=== PATIENT | female | born 1985 | race Caucasian/White ===

== ENCOUNTER 2020-07-22 17:48 | Outpatient (REF) | payer MEDICARE, MEDICAID, SELFPAY ==
--- NOTE | 2020-07-22 18:15 | MR_ITS ---
MRI OF THE BRAIN WITHOUT IV CONTRAST INDICATION: Relapsing remitting multiple sclerosis. COMPARISON: MRI brain April 28, 2016. TECHNIQUE: Multiplanar multisequence MR imaging of the brain was obtained without IV contrast. FINDINGS: There are multiple new lesions within the supratentorial and infratentorial brain when compared to the most recently available April 28, 2016 brain MRI. There is a new lesion in the left middle cerebellar peduncle base and there are multiple new lesions within the supratentorial periventricular and subcortical white matter. Overall lesional burden is extensive. Multiple chronic low T1 signal intensity lesions are noted. No postcontrast imaging was performed for this study to assess for active demyelination. There is no hydrocephalus, extra-axial surface collection, or herniation. The major flow voids at the skull base are preserved. There is no acute infarct on diffusion-weighted imaging. No intracranial hemorrhage on the gradient series. The craniocervical junction is normal. Osseous marrow signal intensity is homogenous. The visualized soft tissues are unremarkable. Partially imaged lesions within the cervical spinal cord are similar to the prior study. MR/MR head/brain wo con IMPRESSION: - There are multiple new lesions within the supratentorial and infratentorial brain when compared to the most recently available April 28, 2016 brain MRI. No postcontrast imaging was performed for this study to assess for active demyelination. Lesional burden is extensive. - Partially imaged lesions within the cervical spinal cord are similar to the prior study.
== END 2020-07-22 17:49 | disposition home or self-care (01) ==
LOC: HO.MRI 17:48
PROVIDERS: Visit Provider Psychiatry & Neurology Neurology
DX: G35 Multiple sclerosis (principal)
CPT/HCPCS: 70551

== ENCOUNTER 2020-11-26 13:44 | Outpatient (REF) | payer MEDICARE, MEDICAID, SELFPAY ==
[2020-11-26 14:40] LABS: Alanine Aminotransferase 14 U/L (0-31); Albumin Level 4.4 g/dL (3.5-5.0); Alkaline Phosphatase 61 U/L (39-117); Aspartate Amino Transferase 12 U/L (5-31); Bilirubin Direct 0.2 mg/dL (0.0-0.5); Bilirubin Total 0.4 mg/dL (0.0-1.0); Total Protein 7.3 g/dL (6.5-8.0)
[2020-12-03 23:31] LABS: JCV Antibody POSITIVE; JCV Index Value 1.17
== END 2020-11-26 13:45 | disposition home or self-care (01) ==
LOC: HO.LAB 13:44
PROVIDERS: PCP Family Medicine; Visit Provider Psychiatry & Neurology Neurology
DX: G35 Multiple sclerosis (principal)
CPT/HCPCS: 36415; 80076; 86711

== ENCOUNTER 2021-04-23 09:53 | Outpatient (REF) | payer MEDICARE, MEDICAID, SELFPAY ==
[2021-04-23 11:07] LABS: Alanine Aminotransferase 18 U/L (0-31); Albumin Level 4.2 g/dL (3.5-5.0); Alkaline Phosphatase 61 U/L (39-117); Aspartate Amino Transferase 14 U/L (5-31); Bilirubin Direct < 0.2 mg/dL (0.0-0.5); Bilirubin Total 0.4 mg/dL (0.0-1.0); Total Protein 6.8 g/dL (6.5-8.0)
== END 2021-04-23 09:54 | disposition home or self-care (01) ==
LOC: HO.LAB 09:53
PROVIDERS: PCP Family Medicine; Visit Provider Psychiatry & Neurology Neurology
DX: G35 Multiple sclerosis (principal)
CPT/HCPCS: 36415; 80076

== ENCOUNTER 2021-06-15 13:41 | Outpatient (REF) | payer MEDICARE, MEDICAID, SELFPAY | END 2021-06-15 13:42 | disposition home or self-care (01) | LOC: HO.LAB 13:41 | PROVIDERS: Visit Provider Internal Medicine | DX: Z20.822 Contact with and (suspected) exposure to COVID-19 (principal) | CPT/HCPCS: C9803; U0003; U0005 ==

== ENCOUNTER 2022-05-10 14:13 | Outpatient (REF) | payer MEDICARE, MEDICAID, SELFPAY ==
[2022-05-10 15:55] LABS: Alanine Aminotransferase 13 U/L (0-31); Albumin Level 4.6 g/dL (3.5-5.0); Alkaline Phosphatase 71 U/L (39-117); Aspartate Amino Transferase 13 U/L (5-31); Bilirubin Direct 0.2 mg/dL (0.0-0.5); Bilirubin Total 0.3 mg/dL (0.0-1.0); Total Protein 7.5 g/dL (6.5-8.0)
== END 2022-05-10 14:14 | disposition home or self-care (01) ==
LOC: HO.LAB 14:13
PROVIDERS: PCP Family Medicine; Visit Provider Psychiatry & Neurology Neurology
DX: G35 Multiple sclerosis (principal)
CPT/HCPCS: 36415; 80076

== ENCOUNTER 2022-12-14 14:01 | Outpatient (REF) | payer MEDICARE, MEDICAID, SELFPAY ==
[2022-12-14 15:39] LABS: Alanine Aminotransferase 11 U/L (0-31); Albumin Level 4.1 g/dL (3.5-5.0); Alkaline Phosphatase 59 U/L (39-117); Aspartate Amino Transferase 11 U/L (5-31); Bilirubin Direct 0.2 mg/dL (0.0-0.5); Bilirubin Total 0.6 mg/dL (0.0-1.0)
== END 2022-12-14 14:02 | disposition home or self-care (01) ==
LOC: HO.LAB 14:01
PROVIDERS: PCP Family Medicine; Visit Provider Psychiatry & Neurology Neurology
DX: G35 Multiple sclerosis (principal)
CPT/HCPCS: 36415; 80076

== ENCOUNTER 2023-08-30 13:57 | Outpatient (REF) | payer MEDICARE, MEDICAID, SELFPAY ==
[2023-08-30 15:51] LABS: Alanine Aminotransferase 11 U/L (0-31); Albumin Level 3.9 g/dL (3.5-5.0); Alkaline Phosphatase 58 U/L (39-117); Aspartate Amino Transferase 11 U/L (5-31); Bilirubin Direct 0.2 mg/dL (0.0-0.5); Bilirubin Total 0.3 mg/dL (0.0-1.0); Total Protein 6.8 g/dL (6.5-8.0)
== END 2023-08-30 13:58 | disposition home or self-care (01) ==
LOC: HO.LAB 13:57
PROVIDERS: PCP Family Medicine; Visit Provider Psychiatry & Neurology Neurology
DX: G35 Multiple sclerosis (principal)
CPT/HCPCS: 36415; 80076

== ENCOUNTER 2023-12-03 13:19 | Emergency (ER) | payer MEDICARE, MEDICAID, SELFPAY ==
--- NOTE | ~2023-12-03 | CT_ITS ---
EXAMINATION: CT HEAD WITHOUT CONTRAST CLINICAL INFORMATION: Seizure. COMPARISON: MRI performed 07/22/2020 TECHNIQUE: Contiguous axial imaging was performed from the skull base to vertex without intravenous administration of contrast. This CT examination was performed using dose optimization techniques as appropriate, variously including the following: *Automated exposure control *Adjustment of mA and/or kV according to patient size (this includes techniques or standardized protocols for targeted exams where dose is matched to indication/reason for exam; i.e. extremities or head) *Use of iterative reconstruction technique DLP: 582 mGy-cm FINDINGS: The lateral, third and fourth ventricles are normally outlined. The cortical sulci and basal cisterns are normally outlined as well. There is bilateral periventricular and central white matter diminished attenuation. There is no hemorrhage or midline shift. The extra-axial spaces are unremarkable. Calvarium/scalp: Intact. Maxillofacial sinuses and mastoids: Clear as visualized CT/CT head/brain wo IV con IMPRESSION: 1. No acute hemorrhage or midline shift. 2. Bilateral periventricular and central white matter diminished attenuation likely related to demyelination as seen on prior MRI.
[2023-12-03 14:17] VITALS: BP 177/75; PULSE 78; RESP 18; TEMP 37.1; O2SAT 98; BMI 21.1
--- NOTE | 2023-12-03 14:18 | ED.GENADULT ---
HPI - General Adult General Chief complaint: Dizziness Stated complaint: MS flare up? Time Seen by Provider: 12/03/23 22:38 Source: patient Mode of arrival: ambulatory Limitations: no limitations History of Present Illness HPI narrative: Patient's history of multiple sclerosis for last 20 years police stable on Tysabri injection which she taking for last 6 years 4 days ago while patient's driving noticed his vision tunnel unable to function since then had similar episode but mild intensity 2- 3 times in past feels very anxious symptoms lasted only for few minutes Related Data Previous Rx's ?Medication ?Instructions ?Recorded lorazepam 1 mg tablet (Ativan) 1 mg PO BEDTIME PRN agitation #7 12/04/23 tabs Allergies Allergy/AdvReac Type Severity Reaction Status Date / Time No Known Allergies Allergy Verified 12/03/23 14:21 Review of Systems Review of Systems: Yes all other systems are reviewed and are negative [facility] Social History Social History Smoked in Last 30 Days: Yes Use of substances other than those prescribed or required for medical reasons: No Advance Directives: No Advance Directives Information Provided: No Do you have a plan to hurt others: No Plan Patient : No Physical Exam ED Vital Signs: Vital Signs - 24 hr 12/04/23 02:08 Temperature 98.1 F Pulse Rate 67 Respiratory Rate 16 Blood Pressure 143/65 H Pulse Oximetry 97 Oxygen Delivery Method Room Air BMI result Body Mass Index 21.1 Appearance: Alert. Oriented X3. No acute distress. Eyes: PERRLA, No Nystagmus ENT: Pharynx normal. Oral Mucosa moist Neck: Normal inspection. Neck supple. CVS: Normal heart rate and rhythm. Pulses normal. Respiratory: No respiratory distress. Equal air entry bilateral, no wheezing/rales/rhonchi Abdomen: Soft and nontender. Bowel sounds are present, no mass palpable, no CVA tenderness Skin: Skin warm and dry. Normal skin color. Normal skin turgor. Extremities: No lower extremity edema. No calf tenderness Neuro: Oriented X 3. No motor deficit. No sensory deficit.No cerebellar signs , cranial nerves II-XII intact Course Course Course Narrative: RME- 38 year old female presents for evaluation of confusion and dizziness. She also endorses a headache. Neuros intact. She reports starting Zoloft 25mg 3 days ago for anxiety. Plan for labs, EKG. Medications Administered Discontinued Medications Generic Name Dose Route Start Last Admin Trade Name Cory PRN Reason Stop Dose Admin Lorazepam 1 mg 12/04/23 01:57 12/04/23 02:03 Lorazepam 1 Mg Tablet PO 12/04/23 01:58 1 mg ONCE ONE Administration Medical Decision Making Medical Decision Making [facility] Narrative: Patient's symptoms likely anxiety as symptoms lasted only for few minutes CT scan of the head is negative advised to follow with the evaluation including MRI Differential Diagnosis Differential Diagnoses: The differential diagnosis associated with the presentation includes MS flare/anxiety Lab Data 12/03/23 15:06 12/03/23 15:06 Labs: Lab Results 12/03/23 12/03/23 12/03/23 Range/Units 15:06 15:07 15:10 WBC 11.9 H (4.8-10.8) X10*3/uL RBC 4.04 L (4.20-5.50) X10*6/uL Hgb 12.2 (12.0-16.0) g/dl Hct 34.7 L (37.0-47.0) % MCV 85.9 (80.0-98.0) fL MCH 30.2 (27.0-33.0) pg MCHC 35.2 H (31.0-35.0) g/dl RDW 13.2 (11.0-16.0) % Plt Count 262 (160-400) X10*3/uL MPV 9.9 (9.4-12.3) fL Immature Gran % (Auto) 0.3 (0.0-0.4) % Neut % (Auto) 60.8 (45-73) % Lymph % (Auto) 30.7 (20-40) % [place] % (Auto) 6.0 (2-11) % Eos % (Auto) 1.9 (0-4) % Baso % (Auto) 0.3 (0-2) % Lymph # (Auto) 3.6 (1.2-4.9) X10*3/uL [place] # (Auto) 0.7 (0.1-1.2) X10*3/uL Eos # (Auto) 0.2 (0.0-0.4) X10*3/uL Baso # (Auto) 0.0 (0.0-0.2) X10*3/uL Abs Immat Gran (auto) 0.04 H (0.00-0.03) X10*3/uL Absolute Neuts (auto) 7.2 (2.0-8.3) x10*3/uL Absolute Nucleated RBC 0.000 (0.0-0.012) X10*3/uL Nucleated RBC % (auto) 0.0 (0.0-0.2) /100WBC Sodium 140 (135-145) mmol/L Potassium 3.9 (3.3-5.1) mmol/L Chloride 108 (96-108) mmol/L Carbon Dioxide 22 (22-29) mmol/L Anion Gap 14 (12-20) BUN 8 L (9-16) mg/dL Creatinine 0.66 (0.5-1.4) mg/dL Estim Creat Clear Calc 91.4 Estimated GFR > 60 Random Glucose 92 (60-115) mg/dL Calcium 9.6 (8.4-10.2) mg/dL Total Bilirubin 0.5 (0.0-1.0) mg/dL AST 16 (5-31) U/L ALT 15 (0-31) U/L Alkaline Phosphatase 52 (39-117) U/L Ammonia (13-55) umol/L Total Protein 7.7 (6.5-8.0) g/dL Albumin 4.7 (3.5-5.0) g/dL Lipase 17 (8-78) U/L Beta HCG, Quant < 2 mIU/mL Urine Color Yellow Urine Appearance Clear Urine pH 5.0 (5.0-9.0) Ur Specific [place] <= 1.005 (1.005-1.025) Urine Protein Negative (Neg-Trace) mg/dL Urine Glucose (UA) Negative (Negative) mg/dL Urine Ketones 15 (Negative) mg/dL Urine Blood Trace H (Negative) Urine Nitrite Negative (Negative) Ur Leukocyte Esterase Negative (Negative) Urine RBC 0-2 (0-2) /HPF Urine WBC 0-5 (0-5) /HPF Ur Squamous Epith Cells 0-2 (0-2) /HPF Urine Bacteria None Seen (None Seen) Hyaline Casts 0-2 (0-2) /LPF 05/26/24 Range/Units 20:11 WBC (4.8-10.8) X10*3/uL RBC (4.20-5.50) X10*6/uL Hgb (12.0-16.0) g/dl Hct (37.0-47.0) % MCV (80.0-98.0) fL MCH (27.0-33.0) pg MCHC (31.0-35.0) g/dl RDW (11.0-16.0) % Plt Count (160-400) X10*3/uL MPV (9.4-12.3) fL Immature Gran % (Auto) (0.0-0.4) % Neut % (Auto) (45-73) % Lymph % (Auto) (20-40) % [place] % (Auto) (2-11) % Eos % (Auto) (0-4) % Baso % (Auto) (0-2) % Lymph # (Auto) (1.2-4.9) X10*3/uL [place] # (Auto) (0.1-1.2) X10*3/uL Eos # (Auto) (0.0-0.4) X10*3/uL Baso # (Auto) (0.0-0.2) X10*3/uL Abs Immat Gran (auto) (0.00-0.03) X10*3/uL Absolute Neuts (auto) (2.0-8.3) x10*3/uL Absolute Nucleated RBC (0.0-0.012) X10*3/uL Nucleated RBC % (auto) (0.0-0.2) /100WBC Sodium (135-145) mmol/L Potassium (3.3-5.1) mmol/L Chloride (96-108) mmol/L Carbon Dioxide (22-29) mmol/L Anion Gap (12-20) BUN (9-16) mg/dL Creatinine (0.5-1.4) mg/dL Estim Creat Clear Calc Estimated GFR Random Glucose (60-115) mg/dL Calcium (8.4-10.2) mg/dL Total Bilirubin (0.0-1.0) mg/dL AST (5-31) U/L ALT (0-31) U/L Alkaline Phosphatase (39-117) U/L Ammonia 27 (13-55) umol/L Total Protein (6.5-8.0) g/dL Albumin (3.5-5.0) g/dL Lipase (8-78) U/L Beta HCG, Quant mIU/mL Urine Color Urine Appearance Urine pH (5.0-9.0) Ur Specific [place] (1.005-1.025) Urine Protein (Neg-Trace) mg/dL Urine Glucose (UA) (Negative) mg/dL Urine Ketones (Negative) mg/dL Urine Blood (Negative) Urine Nitrite (Negative) Ur Leukocyte Esterase (Negative) Urine RBC (0-2) /HPF Urine WBC (0-5) /HPF Ur Squamous Epith Cells (0-2) /HPF Urine Bacteria (None Seen) Hyaline Casts (0-2) /LPF Discharge Plan Discharge Clinical Impression: Anxiety, Seizure disorder Patient Disposition: Home, Self-Care Instructions: Epilepsy (ED), Anxiety (ED) Additional Instructions: It is not clear whether you had a anxiety attack or possible small seizure Take Ativan 1 mg tablet every 6 hours as needed See Dr. Joseph neurologist for further workup Prescriptions: New lorazepam [Ativan] 1 mg tablet 1 mg PO BEDTIME PRN (Reason: agitation) Qty: 7 0RF Interventions: ED Discharge Assessment Last Done: 12/04/23 02:08 Discharge Date/Time: 12/04/23 02:09 Print Language: Filipino
--- NOTE | 2023-12-03 14:19 | ECG_ITS ---
Test Reason : PAIN Blood Pressure : / mmHG Vent. Rate : 079 BPM Atrial Rate : 079 BPM P-R Int : 132 ms QRS Dur : 076 ms QT Int : 382 ms P-R-T Axes : 069 039 056 degrees QTc Int : 438 ms Normal sinus rhythm with sinus arrhythmia Possible Anterior infarct , age undetermined Abnormal ECG No previous ECGs available Referred By: Leo Amaya Electronically Signed By:David Yuen
[2023-12-03 15:18] LABS: MANUAL DIFF FLAG NO
[2023-12-03 15:20] LABS: Basophils Percent Auto 0.3 % (0-2); Eosinophils Absolute Auto 0.2 X10*3/uL (0.0-0.4); Eosinophils Percent Auto 1.9 % (0-4); Hematocrit 34.7 % (37.0-47.0); Hemoglobin 12.2 g/dl (12.0-16.0); Imm Gran Abs Auto 0.04 X10*3/uL (0.00-0.03); Imm Gran Pct Auto 0.3 % (0.0-0.4); Lymphocytes Absolute Auto 3.6 X10*3/uL (1.2-4.9); Lymphocytes Percent Auto 30.7 % (20-40); Mean Corpuscular HGB Conc 35.2 g/dl (31.0-35.0); Mean Corpuscular Hemoglobin 30.2 pg (27.0-33.0); Mean Corpuscular Volume 85.9 fL (80.0-98.0); Mean Platelet Volume 9.9 fL (9.4-12.3); Monocytes Absolute Auto 0.7 X10*3/uL (0.1-1.2); Neutrophils Absolute Auto 7.2 x10*3/uL (2.0-8.3); Neutrophils Percent Auto 60.8 % (45-73); Platelet Count 262 X10*3/uL (160-400); Red Blood Count 4.04 X10*6/uL (4.20-5.50); Red Cell Distribution Width 13.2 % (11.0-16.0); White Blood Count 11.9 X10*3/uL (4.8-10.8)
[2023-12-03 15:20] LABS: Appearance Urine Clear; Color Urine Yellow; Glucose Urine UA Negative (Negative); Leukocyte Esterase Urine Negative (Negative); Nitrite Urine Negative (Negative); Specific Gravity - Urine <= 1.005 (1.005-1.025); UMIC TRIGGER UACC YES; Urine Blood Trace (Negative); Urine Ketones 15 mg/dL (Negative); Urine Protein Negative (Neg-Trace)
[2023-12-03 15:25] LABS: Bacteria Urine None Seen (None Seen); Hyaline Casts Urine 0-2 /LPF (0-2); RBC Urine 0-2 /HPF (0-2); Squamous Epithelial Cell Urine 0-2 /HPF (0-2); WBC Urine 0-5 /HPF (0-5)
[2023-12-03 15:36] LABS: Alanine Aminotransferase 15 U/L (0-31); Albumin Level 4.7 g/dL (3.5-5.0); Alkaline Phosphatase 52 U/L (39-117); Anion Gap 14 (12-20); Aspartate Amino Transferase 16 U/L (5-31); Bilirubin Total 0.5 mg/dL (0.0-1.0); Blood Urea Nitrogen 8 mg/dL (9-16); Calcium 9.6 mg/dL (8.4-10.2); Carbon Dioxide 22 mmol/L (22-29); Chloride 108 mmol/L (96-108); Creatinine Clr Calc Pharmacy 91.4; Estimated Glomerular Filt Rate > 60; Glucose Random 92 mg/dL (60-115); Lipase 17 U/L (8-78); Potassium 3.9 mmol/L (3.3-5.1); Sodium 140 mmol/L (135-145); Total Protein 7.7 g/dL (6.5-8.0)
[2023-12-03 15:55] LABS: HCG Quantitative < 2 mIU/mL
--- NOTE | 2023-12-03 20:11 | PC.NURSE ---
pt no answer when called for room.
[2023-12-03 20:24] LABS: Ammonia 27 umol/L (13-55)
[2023-12-03 22:59] VITALS: BP 147/90; PULSE 60; RESP 16; O2SAT 100
[2023-12-04] MEDS: LORazepam 1 MG TABLET PO (02:03)
[2023-12-04 02:08] VITALS: BP 143/65; PULSE 67; RESP 16; TEMP 36.7; O2SAT 97
== END 2023-12-04 02:09 | disposition home or self-care (01) ==
PROVIDERS: Physician Assistant; Emergency Provider Internal Medicine; PCP Family Medicine
DX: F41.9 Anxiety disorder, unspecified (principal); G40.909 Epilepsy, unspecified, not intractable, without status epilepticus; G35 Multiple sclerosis
CPT/HCPCS: 36415; 70450; 80053; 81001; 82140; 83690; 84702; 85025; 93005; 99284

== ENCOUNTER → 2023-12-03 14:19 | Outpatient (BNV) | payer MEDICARE, MEDICAID, SELFPAY | PROVIDERS: Emergency Provider Internal Medicine; PCP Family Medicine; Visit Provider Internal Medicine Cardiovascular Disease | DX: I49.9 Cardiac arrhythmia, unspecified (principal) | CPT/HCPCS: 93010 ==

== ENCOUNTER 2024-04-03 16:07 | Outpatient (REF) | payer MEDICARE, MEDICAID, SELFPAY ==
[2024-04-03 16:24] LABS: MANUAL DIFF FLAG NO
[2024-04-03 17:08] LABS: Basophils Percent Auto 0.4 % (0-2); Eosinophils Absolute Auto 0.3 X10*3/uL (0.0-0.4); Eosinophils Percent Auto 2.9 % (0-4); Hematocrit 37.9 % (37.0-47.0); Hemoglobin 12.8 g/dl (12.0-16.0); Imm Gran Abs Auto 0.05 X10*3/uL (0.00-0.03); Imm Gran Pct Auto 0.5 % (0.0-0.4); Lymphocytes Absolute Auto 4.3 X10*3/uL (1.2-4.9); Mean Corpuscular HGB Conc 33.8 g/dl (31.0-35.0); Mean Corpuscular Hemoglobin 29.5 pg (27.0-33.0); Mean Corpuscular Volume 87.3 fL (80.0-98.0); Mean Platelet Volume 9.8 fL (9.4-12.3); Monocytes Absolute Auto 0.8 X10*3/uL (0.1-1.2); Monocytes Percent Auto 7.4 % (2-11); Neutrophils Absolute Auto 5.5 x10*3/uL (2.0-8.3); Neutrophils Percent Auto 49.8 % (45-73); Platelet Count 291 X10*3/uL (160-400); Red Blood Count 4.34 X10*6/uL (4.20-5.50); Red Cell Distribution Width 13.8 % (11.0-16.0)
[2024-04-06 22:24] LABS: JCV Antibody POSITIVE; JCV Index Value 1.67
== END 2024-04-03 16:08 | disposition home or self-care (01) ==
LOC: HO.LAB 16:07
PROVIDERS: PCP Family Medicine; Referring Provider Family Medicine; Visit Provider Psychiatry & Neurology Neurology
DX: G35 Multiple sclerosis (principal)
CPT/HCPCS: 36415; 85025; 86711

== ENCOUNTER 2024-07-17 13:08 | Outpatient (REF) | payer MEDICARE, MEDICAID, SELFPAY ==
[2024-07-17 14:08] LABS: Alanine Aminotransferase 15 U/L (0-31); Albumin Level 4.2 g/dL (3.5-5.0); Alkaline Phosphatase 52 U/L (39-117); Aspartate Amino Transferase 15 U/L (5-31); Bilirubin Direct < 0.2 mg/dL (0.0-0.5); Bilirubin Total 0.2 mg/dL (0.0-1.0); Total Protein 7.4 g/dL (6.5-8.0)
== END 2024-07-17 13:09 | disposition home or self-care (01) ==
LOC: HO.LAB 13:08
PROVIDERS: PCP Family Medicine; Visit Provider Psychiatry & Neurology Neurology
DX: G35 Multiple sclerosis (principal)
CPT/HCPCS: 36415; 80076

== ENCOUNTER 2024-10-15 10:54 | Outpatient (AMB) | payer MEDICARE, MEDICAID, SELFPAY ==
[2024-10-15 11:27] VITALS: BP 120/76; BMI 20.7
--- NOTE | 2024-10-15 11:27 | MHC.OFFVIS ---
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 No complaints. Last Pap/HPV was in 08/29 showed high-grade JUANA/HPV positive, colpo biopsy ECC was negative, since then no co testing was done No previous screening Mammogram [facility] Medical History Bipolar 1 disorder Multiple sclerosis Family History Father Lung cancer Social History Household Members: Spouse and Children Housing: House Alcohol intake: former Patient Tobacco Use Status: Current everyday Tobacco user Tobacco use type: Cigar Cigarettes Per Day: 5 Years Smoked: 13 Current occupational status: disabled Sexual orientation: Straight/Heterosexual Gender identity: Female Female Reproductive History Menstrual Date of last menstrual period: 09/27/24 Review of Systems Const All systems reviewed & are unremarkable except as noted in HPI and below Card Reports as per HPI Resp Reports as per HPI GI Reports as per HPI and Reports no additional complaints Reports as per HPI Physical Exam Vital Signs: Last Vital Signs BP 120/76 10/15/24 11:27 BMI result Body Mass Index 20.7 Const General: cooperative, healthy appearing and comfortable Chest Chest palpation & inspection: normal inspection of the chest and normal palpation of entire chest wall Breast/axilla inspection: normal inspection of the breasts and normal inspection of the axillae Breast/axilla palpation: normal palpation of the breasts, normal palpation of the axillae and no axillary lymphadenopathy Resp Effort & Inspection: normal respiratory effort Auscultation: clear to auscultation bilaterally Percussion: percussion normal Cardio Palpation: normal PMI Rate: regular rate Rhythm: regular rhythm Heart sounds: no murmurs and no rubs Peripheral pulses: Peripheral pulses 2+ throughout GI Inspection: Yes normal to inspection Palpation (GI): Soft to palpation, nontender, no guarding, not rigid and No hepatosplenomegaly present Percussion: Yes normal to percussion Auscultation: normal bowel sounds Rectal Exam - Female: deferred General: Yes bladder normal to palpation External Female Exam: No lesion Speculum Exam - Vagina: normal appearance of the vagina, normal palpation, normal vaginal discharge and not erythematous Speculum Exam - Cervix: normal appearance of the cervix, normal palpation and Other cervical findings present (Endocervical polyp, removed) Bimanual exam- vagina & uterus: normal bimanual exam, normal palpation, uterine size normal, bladder normal to palpation, consistency normal and normal palpation Bimanual Exam- Adnexa, other: adnexae abnormal (Right adnexa was normal, left adnexal fullness) and no tenderness Skin Other: Left axillary/chest wall sub cuticular mass Office Procedures PRESS PULLER Biopsy Before the procedure was started, discussed with the patient the procedure technique, alternatives & all the risks associated with the procedure including but not limited to: bleeding , infection, uterine perforation, injury to bladder, vessels, bowels, possible need for transfusion with all its risks, and others. All questions were answered, the patient verbalized understanding and signed the consent. Urine test done in the office was negative Using a long Lupe Clamp the endocervical polyp was grasped and twisted around till it came off, hemostasis was secured using pressure. The patient tolerated the procedure well. Instructions were given to the patient to call if bleeding, temp>100.4 occur. The patient verbalized understanding and agreed with the plan. This note was generated with a voice recognition program. Some errors may have been overlooked during the review of this note. Sometimes these errors may affect the content or meaning of a given sentence. 26421-Jnswgo of Cervix Procedure code (CPT) selection complete Assessment & Plan Assessment & Plan (1) Well woman exam: Comment: High-grade JUANA/HPV positive in 2019 Code(s): Z01.419 - Encounter for gynecological examination (general) (routine) without abnormal findings Category: Medical Plan: Cotesting done. Mammogram ordered for 06/03 after the patient there was 40. Counseled the patient about the recommended dietary allowance of 1000 mg of Calcium & 600 IU of vitamin D. The patient was instructed to perform monthly self-breast exams and to schedule an annual exam in a year; All questions answered and the patient verbalized understanding. Instructed the patient to schedule annual exam in a year (2) Chest wall mass: Code(s): R22.2 - Localized swelling, mass and lump, trunk Category: Medical Plan: Discussed with the patient the finding on physical exam, will refer to general surgery for further management (3) Adnexal fullness: Code(s): N94.9 - Unspecified condition associated with female genital organs and menstrual cycle Category: Medical Plan: Discussed with the patient the finding on pelvic exam left adnexal fullness, pelvic ultrasound ordered. Instructions given to patient to schedule a 2 week ultrasound follow-up appointment. (4) Endocervical polyp: Code(s): N84.1 - Polyp of cervix uteri Category: Medical Plan: Discussed with the patient the finding on pelvic exam endocervical polyp, polypectomy done, see procedure note Orders: Orders MM tomosynthesis screening BI 7 Months Z12.31 - Encounter for screening mammogram for malignant neoplasm of breast US pelvic and transvaginal Today N94.9 - Unspecified condition associated with female genital organs and menstrual cycle AMB PRESS PULLER Biopsy Today N84.1 - Polyp of cervix uteri Referrals General Surgery Referral R22.2 - Localized swelling, mass and lump, trunk Medications: Discontinued lorazepam (Ativan) Discontinued Reason: Patient no longer taking 1 mg PO BEDTIME PRN 7 tabs 0RF agitation Coding Level of Care Code Est Pt Level 4 (29913) Procedure Only Diagnoses Well woman exam Z01.419 Chest wall mass R22.2 Adnexal fullness N94.9 Endocervical polyp N84.1 CPT Codes PRESS PULLER Biopsy - CPT: 52191-Daskhd of Cervix ([id number])
--- OUTSIDE RECORDS SUMMARY | 2024-10-15 13:15 | XMS_ITS ---
Author Organization Edmundo Esteban III, MD Address [address] [place] [address] Care Team Providers Care Coyote Hunter Name Role Phone Jorge Swanson MD Primary Care Provider Unavailab Edmundo Marks Unavailable [phone] Sylwia Joseph MD Unavailable Unavailable Allergies Allergen (clinical drug ingredient) Drug/Non Drug Allergy documented on EMR Reaction Allergy Type Onset Date Status No Known Drug Allergy Unknown Drug Allergy Active REASON FOR VISIT Tysabri Infusion Medications Medication SIG (Take, Route, Fr equency, Duration) Notes Start Date End Date Status Tysabri 300 MG/15ML as directed Intravenous Active Vitamin D 1000 UNIT 1 tablet Orally Once a day Active Social History Tobacco Use: Social History [...] te smoker Vital Signs Blood pressure systolic 108 mm Hg 09/12/19 25 Blood pressure diastolic 68 mm Hg 025 Heart Rate 80 /min 09/11/2024 Height 60 in 09/11/2024 Weight 115 lbs 09/11/2024 BMI 22.46 kg/m2 09/11/2024 Encounters Encounter Location Date Provider Diagnosis Edmundo Esteban III, MD [address] [place] [address] [place] [address] 09/11/2024 Edmundo Esteban MS (multiple sclerosis) G35 ; Bipolar 1 disorder F31.9 ; History of depression Z86.59 and Former smoker Z87.891 Assessments Encounter Date Diagnosis (ICD Code) Assessment Notes Treatment Notes Treatment Clinical Notes 09/11/2024 MS (multiple sclerosis) (ICD-10 - G35) She was treated today with 300 mg Tysabri monoclonal antibody therapy without incident. She will return in one month. 09/11/2024 Bipolar 1 disorder (ICD-10 - F31.9) This disorder is in long-term remission. 09/11/2024 History of depression (ICD-10 - Z86.59) She says her depression is well-controlled and that she is compliant with all of her medications. 09/11/2024 Former smoker (ICD-10 - Z87.891) She is highly motivated not to smoke. She has a plan to prevent relapse in times of stress and illness. Plan Of Treatment Medication Medication Name Sig Start Date Stop Date Notes Tysabri 300 MG/15ML as directed Intravenous Vitamin D 1000 UNIT 1 tablet Orally Once a day Next Appt Details Follow Up: 4 Weeks, Reason: Tysabri no tests Provider Name:Edmundo Esteban, 11/06/2024 01:00:00 PM, [address] [place] [address] [place], [address], Provider Name:Edmundo Esteban, 12/04/2024 01:00:00 PM, [address] [place] [address] [place], [address], Provider Name:Edmundo Esteban, 01/01/2025 01:00:00 PM, [address] [place] [address] [place], [address], Procedure Notes * Category Sub-Category Detail Notes Chemotherapy Start and End Time: start, 1:00 pm, end, 2:00 pm Site: right hand Consent: verbal consent was o btained prior to procedure Medications given: Tysabri 300 mg Monitored by: HAILY Copeland port flush none route IV Progress Notes * Kanwal NGDOB:[birth year] (39 yo F)Acc No.[id number]:09/11/2024 Patient:Kanwal PEREZ Provider:?Edmundo Esteban MD :1985???Age:39 Y???Sex:Female D ate:09/11/2024 Address:[address] [place], [place] [id number] Pcp:Jorge Swanson MD Subjective: * Chief Complaints: * ???Tysabri Infusion * HPI: ???COVID-19 Screening:? He returns to the office once a month for Tysabri monoclonal antibody therapy infusions for chronic relapsing multiple sclerosis.? She has had no neurological progression neurodeficit since her last visit.? Feels healthy and well today.? She was treated today without incident. ?Questions?Have you had any new onset fever, chills, cough, congestion, sore throat, shortness of breath, muscle aches??No * ROS:?General/Constitutional:?pain?only normal aches and pains.?Chills?denies.?Fatigue?admits.?Fever?denies.?ENT:?Decreased hearing?denies.?Respiratory:?Cough?denies.?Cardiovascular:?Chest pain with exertion?denies.?Dyspnea on exertion?denies.?Shortness of breath?denies.?Gastrointestinal:?Constipation?occasional.?Decreased appetite?denies.?Diarrhea?denies.?Heartburn?occasional.?Nausea?denies.?Rectal bleeding?denies.?Vomiting?denies.?Hematology:?bruising?denies.?petechiae?denies.?Swollen glands?none have been noted.?Genitourinary:?Frequent urination?a small amount.?Musculoskeletal:?Muscle aches?denies.?Painful joints?denies.?Sciatica?denies.?Weakness?denies.?Skin:?Itching?denies.?Rash?denies.?Skin lesion(s)?denies.?Neurologic:?Difficulty speaking?denies.?Dizziness?denies.?Headache?denies.?Low back pain?denies.?Psychiatric:?Depressed mood?denies.? * Medical History:? * Surgical History:?V4C7Pg8 20 * Hospitalization/Major Diagno stic Procedure:?Child 02/2020 * Family History:?Father: dece ased 55 yrs, lung cancer, diagnosed with Cancer.?Mother: alive 56 yrs, alive and well.?1 brother(s) - healthy. 2 daughter(s) - healthy. .? Her brother has had ureterolithiasis. Her daughter, Marjorie, is 7 ands well. A maternal grandmother may have had breast cancer. She is not aware of any family history of mental illness or substance use disorder or addiction. * Social History:?Tobacco Use:?Tobacco Use/Smoking?Patient is a?former smoker ?How long has it been since you last smoked??3-6 months ?Additional Findings: Tobacco User?Light cigarette smoker ((1-9 cigs/day) ?Additional Findings: Tobacco Non-User?Ex-cigarette smoker ???She was born in [place], [place]. 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 * Medications:?TakingVitamin D 1000 UNIT Tablet 1 tablet Orally Once a day Tysabri 300 MG/15ML Concentrate as directed Intravenous Medication List reviewed and reconciled with the patientTaking Vitamin D 1000 UNIT Tablet 1 tablet Orally Once a day Taking Tysabri 300 MG/15ML Concentrate as directed Intravenous Medication List reviewed and reconciled with the patient * Allergies:?No Known Drug All ergyno[Allergies Verified] Objective: * Vitals:?Ht: 60, Wt: 115, BMI :22.46, BP: 108/68, HR: 80, Wt-k.16. * Examination: ???General Examination: ?GENERAL APPEARANCE:?pleasant, well nourished, well developed, in no acute distress, calm and relaxed, woman.?HEAD:?atraumatic, normocephalic.?EYES:?eomi, perrla, anicteric, conjugate.?EARS:?normal.?NOSE:?septum intact.?ORAL CAVITY:?normal, unremarkable.?NECK/THYROID:?no jugular venous distention, no carotid bruit, thyroid normal.?LYMPH NODES:?no enlarged lymph nodes,spleen normal.?SKIN:?no suspicious lesions, anicteric.?HEART:?no clicks, gallops, murmurs, or rubs, regular rhythm, S1, S2 normal, no s3, or vascular bruits.?LUNGS:?clear to auscultation .?BREASTS:?Not examined.?ABDOMEN:?bowel sounds normal, no ascites, no organomegaly, no mass.?RECTAL EXAM:?not examined.?MUSCULOSKELETAL:?extremities unremarkable, no clubbing, cyanosis or edema.?PERIPHERAL PULSES:?normal.?NEUROLOGIC:?alert and oriented, cranial nerves 2-12 grossly intact, deep tendon reflexes 2+ symmetrical, motor strength normal upper and lower extremities, sensory exam intact.?PSYCH:?alert, oriented.? Assessment: * Assessment: 1.?MS (multiple sclerosis) - G35 (Primary)???Notes :She was treated today with 300 mg Tysabri monoclonal antibody therapy without incident. She will return in one month.???2.?Bipolar 1 disorder - F31.9???Notes :This disorder is in long-term remission.???3.?History of depression - Z86.59???Notes :She says her depression is well-controlled and that she is compliant with all of her medications.???4.?Former smoker - Z87.891???Notes :She is highly motivated not to smoke. She has a plan to prevent relapse in times of stress and illness.??? Plan: * Treatment: * Procedures:?Chemotherapy:?Start and End Time:?start, 1:00 pm, end, 2:00 pm.?Site:?right hand.?Consent:?verbal consent was obtained prior to procedure.?Medications given:?Tysabri 300 mg.?Monitored by:?Melianet P, ASMA.?port flush?none.?route?IV.? * Procedure Codes:?76767 CHEMO , IV INFUSION, 1 [id number] NATALIZUMAB INJECTION * Preventive Medicine:? ??Counseling:?Smoking/Tobacco Use?Patient counseled on the dangers of tobacco use and urged to quit.?09/11/2024 * Follow Up:?4 Weeks (Reason: Tysabri no tests) * Images: * Sign off status: Completed true * Provider:?Edmundo Esteban MD Date:?11/2024 Generated for Sui ng/Fakacig/eTransmitting on:?10/15/2024 01:15 PM EDT History and Physical Notes * HPI [...]
--- OUTSIDE RECORDS SUMMARY | 2024-10-15 13:15 | XMS_ITS ---
Author Organization Edmundo Esteban III, MD Address [address] [place] [address] Care Team Providers Care Car Mover Name Role Phone Jorge Swanson MD Primary Care Provider Unavailab Edmundo Marks Unavailable [phone] Sylwia Joseph MD Unavailable Unavailable Allergies Allergen [...] Date Provider Diagnosis Edmundo Esteban III, MD [address] [place] [address] [place] [address] 10/09/2024 Edmundo Esteban MS (multiple sclerosis) G35 [...] 4 Weeks, Reason: Tysabri Infusion Provider Name:Edmundo Esteban, 11/06/2024 01:00:00 PM, [address] [place] [address] [place], [address], Provider Name:Edmundo Esteban, 12/04/2024 01:00:00 PM, [address] [place] [address] [place], [address], Provider Name:Edmundo Esteban, 01/01/2025 01:00:00 PM, [address] [place] [address] [place], [address], Procedure Notes * Category Sub-Category Detail Notes Chemotherapy Start and End Time: start, 1:00 pm, end, 2:00 pm Site: left hand Consent: verbal consent was o btained prior to procedure Medications given: Tysabri 300 mg Monitored by: Melianet P, ASMA port flush none route IV Progress Notes * Kanwal NGDOB:[birth year] (39 yo F)Acc No.[id number]:10/09/2024 Patient:?Kanwal NG Provider:?Edmundo Esteban MD :1985???Age:39 Y???Sex:Female D ate:10/09/2024 Address:[address] [place], [place] [id number] Pcp:Jorge Swanson MD Subjective: * Chief Complaints: * ???Tysabri Infusion * HPI: ???COVID-19 Screening:? She returns for another scheduled dose of Tysabri monoclonal antibody therapy for chronic relapsing multiple sclerosis.? Since her last visit she has been healthy and well.? She was treated today without incident. ?Questions?Have you had any new onset fever, chills, cough, congestion, sore throat, shortness of breath, muscle aches??No * ROS:?General/Constitutional:?pain?only normal aches and pains.?Chills?denies.?Fatigue?admits.?Fever?denies.?ENT:?Decreased hearing?denies.?Respiratory:?Cough?denies.?Cardiovascular:?Chest pain with exertion?denies.?Dyspnea on exertion?denies.?Shortness of breath?denies.?Gastrointestinal:?Constipation?denies.?Decreased appetite?denies.?Diarrhea?denies.?Heartburn?denies.?Nausea?denies.?Rectal bleeding?denies.?Vomiting?denies.?Hematology:?bruising?denies.?petechiae?denies.?Swollen glands?none have been noted.?Genitourinary:?Frequent urination?at night.?Musculoskeletal:?Muscle aches?denies.?Painful joints?denies.?Sciatica?denies.?Weakness?denies.?Skin:?Itching?denies.?Rash?denies.?Skin lesion(s)?denies.?Neurologic:?Difficulty speaking?denies.?Dizziness?denies.?Headache?denies.?Low back pain?denies.?Psychiatric:?Depressed mood?denies.? * Medical History:? * Surgical History:?S1D1Kp9 29 03 * Hospitalization/Major Diagno stic Procedure:?Child 02/2020 * [...] Tobacco Non-User?Ex-cigarette smoker ???She was born in [place], [place]. 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 * Medications:?TakingVitamin [...] ergyno[Allergies Verified] Objective: * Vitals:?Ht: 60, Wt: 114, BMI :22.26, BP: 109/81, HR: 83, Wt-k.71. * Examination: ???General Examination: ?GENERAL APPEARANCE:?pleasant, well [...] without incident. She will return in one month.???2.?History of depression - Z86.59???Notes :She says her depression is well-controlled and that she is compliant with all of her medications.???3.?Former smoker - Z87.891???Notes :She is highly motivated not to smoke. She has a plan to prevent relapse in times of stress and illness.??? Plan: * Treatment: * Procedures:?Chemotherapy:?Start and End Time:?start, 1:00 pm, end, 2:00 pm.?Site:?left hand.?Consent:?verbal consent was obtained prior to procedure.?Medications given:?Tysabri 300 mg.?Monitored by:?Lennox P, ASMA.?port flush?none.?route?IV.? * Procedure Codes:?66942 CHEMO , IV INFUSION, 1 [id number] NATALIZUMAB INJECTION * Preventive Medicine:? ??Counseling:?Smoking/Tobacco Use?Patient counseled on the dangers of tobacco use and urged to quit.?10/09/2024 * Follow Up:?4 Weeks (Reason: Tysabri Infusion) * Images: * Sign off status: Completed true * Provider:?Edmundo Esteban MD Date:?08/2024 Generated for Sanam leary/Maxx/eTransmitting on:?10/15/2024 01:15 PM EDT History and Physical [...]
--- OUTSIDE RECORDS SUMMARY | 2024-10-15 13:15 | XMS_ITS ---
Author Organization Edmundo Esteban III, MD Address [address] [place] [address] Care Team Providers Care Celery Wrapper Name Role Phone Jorge Swansno MD Primary Care Provider Unavailab Edmundo Marks Unavailable [phone] Sylwia Joseph MD Unavailable Unavailable Allergies Allergen [...] te smoker Vital Signs Blood pressure systolic 115 mm Hg 08/13/19 25 Blood pressure diastolic 81 mm Hg 025 Heart Rate 93 /min 08/13/2024 Height 60 in 08/13/2024 Weight 113 lbs 08/13/2024 BMI 22.07 kg/m2 08/13/2024 Encounters Encounter Location Date Provider Diagnosis Edmundo Esteban III, MD [address] [place] [address] [place] [address] 08/13/2024 Edmundo Esteban MS (multiple sclerosis) G35 ; Bipolar 1 disorder F31.9 ; History of depression Z86.59 and Former smoker Z87.891 Assessments Encounter Date Diagnosis (ICD Code) Assessment Notes Treatment Notes Treatment Clinical Notes 08/13/2024 MS (multiple sclerosis) (ICD-10 - G35) She was treated today with 300 mg Tysabri monoclonal antibody therapy without incident. She will return in one month. 08/13/2024 Bipolar 1 disorder (ICD-10 - F31.9) This disorder is in long-term remission. 08/13/2024 History of depression (ICD-10 - Z86.59) She says her depression is well-controlled and that she is compliant with all of her medications. 08/13/2024 Former smoker (ICD-10 - Z87.891) She is highly motivated not to smoke. She has a plan to prevent relapse in times of stress and illness. Plan Of Treatment Medication Medication Name Sig Start Date Stop Date Notes Vitamin D 1000 UNIT 1 tablet Orally Once a day Tysabri 300 MG/15ML as directed Intravenous Next Appt Details Follow Up: 4 Weeks, Reason: Tysabri infusion no tests Provider Name:Edmundo Esteban, 11/06/2024 01:00:00 PM, [address] [place] [address] [place], [address], Provider Name:Edmundo Esteban, 12/04/2024 01:00:00 PM, [address] [place] [address] [place], [address], Provider Name:Edmundo Esteban, 01/01/2025 01:00:00 PM, [address] [place] [address] [place], [address], Procedure Notes * Category Sub-Category Detail Notes Chemotherapy Start and End Time: start, 1:00 pm, end, 2:00 pm Site: left hand Consent: verbal consent was o btained prior to procedure Medications given: Tysabri 300 mg Monitored by: HAILY Copeland route IV Progress Notes * Kanwal NGDOB:[birth year] (39 yo F)Acc No.[id number]:08/13/2024 Patient:Kanwal PEREZ Provider:?Edmundo Esteban MD :1985???Age:39 Y???Sex:Female D ate:08/13/2024 Address:[address] [place], [place] [id number] Pcp:Jorge Swanson MD Subjective: * Chief Complaints: * ???Tysabri Infusion * HPI: ???COVID-19 Screening:? She comes in today for another intravenous innfusion of Tysabri monoclonal antibody therapy for her chronic relapsing multiple sclerosis.? Since her last visit she has been healthy and well.? She has no new complaints today.? She was treated today without incident.? She tolerated it well. ?Questions?Have you had any new onset fever, chills, cough, congestion, sore throat, shortness of breath, muscle aches??No * ROS:?General/Constitutional:?pain?only normal aches and pains.?Chills?denies.?Fatigue?admits.?Fever?denies.?ENT:?Decreased hearing?denies.?Respiratory:?Cough?denies.?Cardiovascular:?Chest pain with exertion?denies.?Dyspnea on exertion?denies.?Shortness of breath?denies.?Gastrointestinal:?Constipation?occasional.?Decreased appetite?denies.?Diarrhea?denies.?Heartburn?occasional.?Nausea?denies.?Rectal bleeding?denies.?Vomiting?denies.?Hematology:?bruising?denies.?petechiae?denies.?Swollen glands?none have been noted.?Genitourinary:?Frequent urination?denies.?Musculoskeletal:?Muscle aches?denies.?Painful joints?denies.?Sciatica?denies.?Weakness?denies.?Skin:?Itching?denies.?Rash?denies.?Skin lesion(s)?denies.?Neurologic:?Difficulty speaking?denies.?Dizziness?denies.?Headache?denies.?Low back pain?denies.?Psychiatric:?Depressed mood?denies.? * Medical History:? * Surgical History:?[id number] 20 09 * Hospitalization/Major Diagno stic Procedure:?Child 02/2020 * [...] Tobacco Non-User?Ex-cigarette smoker ???She was born in [place], [place]. 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 * [...] ergyno[Allergies Verified] Objective: * Vitals:?Ht: 60, Wt: 113, BMI :22.07, BP: 115/81, HR: 93, Wt-k.26. * Examination: ???General Examination: ?GENERAL APPEARANCE:?pleasant, well [...] obtained prior to procedure.?Medications given:?Tysabri 300 mg.?Monitored by:?Melemory P, ASMA.?route?IV.? * Procedure Codes:?42933 CHEMO , IV INFUSION, 1 [id number] NATALIZUMAB INJECTION * Preventive Medicine:? ??Counseling:?Smoking/Tobacco Use?Patient counseled on the dangers of tobacco use and urged to quit.?08/13/2024 * Follow Up:?4 Weeks (Reason: Tysabri infusion no tests) * Images: * Sign off status: Completed true * Provider:?Edmundo Esteban MD Date:?10/2024 Generated for Sanam leary/Maxx/eTphilippesmitting on:?10/15/2024 01:15 PM EDT History and Physical [...]
== END 2024-10-15 12:11 | disposition home or self-care (01) ==
LOC: HO.HWS 10:54
PROVIDERS: PCP Family Medicine; Visit Provider Obstetrics & Gynecology
DX: R22.2 Localized swelling, mass and lump, trunk (principal); N94.9 Unspecified condition associated with female genital organs and menstrual cycle; N84.1 Polyp of cervix uteri
CPT/HCPCS: 57500; 99214

== ENCOUNTER 2024-10-15 10:54 | Outpatient (REF) | payer MEDICARE, MEDICAID, SELFPAY ==
--- OUTSIDE RECORDS SUMMARY | 2024-10-15 14:36 | XMS_ITS | Patient Health Record ---
Author Organization Edmundo Esteban III, MD Address [address] [place] [address] Care Team Providers Care Donor Processor Name Role Phone Jorge Swanson MD Primary Care Provider Unavailab Edmundo Marks Unavailable [phone] Sylwia Joseph MD Unavailable Unavailable Allergies Allergen (clinical drug ingredient) Drug/Non Drug Allergy documented on EMR Reaction Allergy Type Onset Date Status No Known Drug Allergy Unknown Drug Allergy Active Reason For Referral No Information Medications Medication SIG (Take, Route, Fr equency, [...] Additional Findings: Tobacco Non-User Ex-cigaret te smoker Alcohol Screen Question Answer Notes Did you have a drink containing alcohol in the p ast year? No Points 0 Interpretation Negative Problems Problem Type SNOMED Code ICD Code Onset Dates Problem Status W/U Status Risk Notes Problem 0710894 Former smoker (Z87.891) Active confirmed She is highly motivated not to smoke. She has a plan to prevent relapse in times of stress and illness. Problem 69714609 MS (multiple sclerosis) (G35) Active confirmed She was treated today with 300 mg Tysabri monoclonal antibody therapy without incident. She will return in one month. Problem 234605415 History of depression (Z86.59) Active confirmed She says her depression is well-controll ed and that she is compliant with all of her medications. Problem 545115548 Bipolar 1 disorder (F31.9) Active confirmed This disorder is in long-term remission. Vital Signs Heart Rate 83 /min 10/09/2024 Temperature 99.1 degrees Fahrenheit 11/14/2023 Blood pressure diastolic 81 mm Hg 10/09/2024 Height 60 in 10/09/2024 Blood pressure systolic 109 mm Hg 10/09/2024 Weight 114 lbs 10/09/2024 BMI 22.26 kg/m2 10/09/2024 Encounters Encounter Location Date Provider Diagnosis Edmundo Esteban III, MD [address] [place] [address] [place] [address] 12/12/2023 Edmundo Esteban MS (multiple sclerosis) G35 ; Bipolar 1 disorder F31.9 and History of depression Z86.59 Edmundo Esteban III, MD [address] [place] [address] [place] [address] 01/09/2024 Edmundo Esteban MS (multiple sclerosis) G35 ; Bipolar 1 disorder F31.9 ; History of depression Z86.59 and Former smoker Z87.891 Edmundo Esteban III, MD [address] [place] [address] [place] [address] 10/17/2023 Edmundo Esteban MS (multiple sclerosis) G35 ; Bipolar 1 disorder F31.9 ; History of depression Z86.59 and Former smoker Z87.891 Edmundo Esteban III, MD [address] [place] [address] [place] [address] 11/14/2023 Edmundo Esteban MS (multiple sclerosis) G35 ; History of depression Z86.59 ; Bipolar 1 disorder F31.9 and Former smoker Z87.891 Edmundo Esteban III, MD [address] [place] [address] [place] [address] 02/14/2024 Edmundo Esteban MS (multiple sclerosis) G35 ; Bipolar 1 disorder F31.9 ; History of depression Z86.59 and Former smoker Z87.891 Edmundo Esteban III, MD [address] [place] [address] [place] [address] 03/13/2024 Edmundo Haasrne MS (multiple sclerosis) G35 ; Bipolar 1 disorder F31.9 ; Former smoker Z87.891 and History of depression Z86.59 Edmundo Esteban III, MD [address] [place] [address] [place] [address] 04/12/2024 Edmundo Haasrne MS (multiple sclerosis) G35 ; Bipolar 1 disorder F31.9 ; History of depression Z86.59 and Former smoker Z87.891 Edmundo Esteban III, MD [address] [place] [address] [place] [address] 05/10/2024 Edmundo Esteban MS (multiple sclerosis) G35 ; Former smoker Z87.891 ; Bipolar 1 disorder F31.9 and History of depression Z86.59 Edmundo Esteban III, MD [address] [place] [address] [place] [address] 06/11/2024 Edmundo Haasrne MS (multiple sclerosis) G35 ; Bipolar 1 disorder F31.9 ; History of depression Z86.59 and Former smoker Z87.891 Edmundo Esteban III, MD [address] [place] [address] [place] [address] 07/12/2024 Edmundo Haasrne MS (multiple sclerosis) G35 ; Bipolar 1 disorder F31.9 ; History of depression Z86.59 and Former smoker Z87.891 Edmundo Esteban III, MD [address] [place] [address] [place] [address] 08/13/2024 Edmundo Esteban MS (multiple sclerosis) G35 ; Bipolar 1 disorder F31.9 ; History of depression Z86.59 and Former smoker Z87.891 Edmundo Esteban III, MD [address] [place] [address] [place] [address] 10/09/2024 Edmundo Esteban MS (multiple sclerosis) G35 ; History of depression Z86.59 and Former smoker Z87.891 Edmundo Esteban III, MD [address] [place] [address] [place] [address] 09/11/2024 Edmundo Esteban MS (multiple sclerosis) G35 ; Bipolar 1 disorder F31.9 ; History of depression Z86.59 and Former smoker Z87.891 Edmundo Esteban III, MD [address] [place] [address] [place] [address] 12/06/2023 Edmundo Esteban Assessments Encounter Date Diagnosis (ICD Code) Assessment Notes Treatment Notes Treatment Clinical Notes 12/12/2023 MS (multiple sclerosis) (ICD-10 - G35) She was treated today with 300 mg Tysabri monoclonal antibody therapy without incident. She will return in one month. 12/12/2023 Bipolar 1 disorder (ICD-10 - F31.9) This disorder is in long-term remission. 01/09/2024 MS (multiple sclerosis) (ICD-10 - G35) She was treated today with 300 mg Tysabri monoclonal antibody therapy without incident. She will return in one month. 01/09/2024 Bipolar 1 disorder (ICD-10 - F31.9) This disorder is in long-term remission. 10/17/2023 MS (multiple sclerosis) (ICD-10 - G35) She was treated today with 300 mg Tysabri monoclonal antibody therapy without incident. She will return in one month. 10/17/2023 Bipolar 1 disorder (ICD-10 - F31.9) This disorder is in long-term remission. 11/14/2023 MS (multiple sclerosis) (ICD-10 - G35) She was treated today with 300 mg Tysabri monoclonal antibody therapy without incident. She will return in one month. 11/14/2023 History of depression (ICD-10 - Z86.59) She says her depression is well-controlled and that she is compliant with all of her medications. 02/14/2024 MS (multiple sclerosis) (ICD-10 - G35) She was treated today with 300 mg Tysabri monoclonal antibody therapy without incident. She will return in one month. 02/14/2024 Bipolar 1 disorder (ICD-10 - F31.9) This disorder is in long-term remission. 03/13/2024 MS (multiple sclerosis) (ICD-10 - G35) She was treated today with 300 mg Tysabri monoclonal antibody therapy without incident. She will return in one month. 03/13/2024 Bipolar 1 disorder (ICD-10 - F31.9) This disorder is in long-term remission. 04/12/2024 MS (multiple sclerosis) (ICD-10 - G35) She was treated today with 300 mg Tysabri monoclonal antibody therapy without incident. She will return in one month. 04/12/2024 Bipolar 1 disorder (ICD-10 - F31.9) This disorder is in long-term remission. 05/10/2024 Former smoker (ICD-10 - Z87.891) She is highly motivated not to smoke. She has a plan to prevent relapse in times of stress and illness. 05/10/2024 MS (multiple sclerosis) (ICD-10 - G35) She was treated today with 300 mg Tysabri monoclonal antibody therapy without incident. She will return in one month. 06/11/2024 MS (multiple sclerosis) (ICD-10 - G35) She was treated today with 300 mg Tysabri monoclonal antibody therapy without incident. She will return in one month. 06/11/2024 Bipolar 1 disorder (ICD-10 - F31.9) This disorder is in long-term remission. 07/12/2024 MS (multiple sclerosis) (ICD-10 - G35) She was treated today with 300 mg Tysabri monoclonal antibody therapy without incident. She will return in one month. 07/12/2024 Bipolar 1 disorder (ICD-10 - F31.9) This disorder is in long-term remission. 08/13/2024 MS (multiple sclerosis) (ICD-10 - G35) She was treated today with 300 mg Tysabri monoclonal antibody therapy without incident. She will return in one month. 08/13/2024 Bipolar 1 disorder (ICD-10 - F31.9) This disorder is in long-term remission. 10/09/2024 MS (multiple sclerosis) (ICD-10 - G35) She was treated today with 300 mg Tysabri monoclonal antibody therapy without incident. She will return in one month. 10/09/2024 History of depression (ICD-10 - Z86.59) She says her depression is well-controlled and that she is compliant with all of her medications. 09/11/2024 MS (multiple sclerosis) (ICD-10 - G35) She was treated today with 300 mg Tysabri monoclonal antibody therapy without incident. She will return in one month. 09/11/2024 Bipolar 1 disorder (ICD-10 - F31.9) This disorder is in long-term remission. 12/12/2023 History of depression (ICD-10 - Z86.59) She says her depression is well-controlled and that she is compliant with all of her medications. 01/09/2024 History of depression (ICD-10 - Z86.59) She says her depression is well-controlled and that she is compliant with all of her medications. 10/17/2023 History of depression (ICD-10 - Z86.59) She says her depression is well-controlled and that she is compliant with all of her medications. 11/14/2023 Bipolar 1 disorder (ICD-10 - F31.9) This disorder is in long-term remission. 02/14/2024 History of depression (ICD-10 - Z86.59) She says her depression is well-controlled and that she is compliant with all of her medications. 03/13/2024 Former smoker (ICD-10 - Z87.891) She is highly motivated not to smoke. She has a plan to prevent relapse in times of stress and illness. 04/12/2024 History of depression (ICD-10 - Z86.59) She says her depression is well-controlled and that she is compliant with all of her medications. 05/10/2024 Bipolar 1 disorder (ICD-10 - F31.9) This disorder is in long-term remission. 06/11/2024 History of depression (ICD-10 - Z86.59) She says her depression is well-controlled and that she is compliant with all of her medications. 07/12/2024 History of depression (ICD-10 - Z86.59) She says her depression is well-controlled and that she is compliant with all of her medications. 08/13/2024 History of depression (ICD-10 - Z86.59) She says her depression is well-controlled and that she is compliant with all of her medications. 10/09/2024 Former smoker (ICD-10 - Z87.891) She is highly motivated not to smoke. She has a plan to prevent relapse in times of stress and illness. 09/11/2024 History of depression (ICD-10 - Z86.59) She says her depression is well-controlled and that she is compliant with all of her medications. 01/09/2024 Former smoker (ICD-10 - Z87.891) She is highly motivated not to smoke. She has a plan to prevent relapse in times of stress and illness. 10/17/2023 Former smoker (ICD-10 - Z87.891) She is highly motivated not to smoke. She has a plan to prevent relapse in times of stress and illness. 11/14/2023 Former smoker (ICD-10 - Z87.891) She is highly motivated not to smoke. She has a plan to prevent relapse in times of stress and illness. 02/14/2024 Former smoker (ICD-10 - Z87.891) She is highly motivated not to smoke. She has a plan to prevent relapse in times of stress and illness. 03/13/2024 History of depression (ICD-10 - Z86.59) She says her depression is well-controlled and that she is compliant with all of her medications. 04/12/2024 Former smoker (ICD-10 - Z87.891) She is highly motivated not to smoke. She has a plan to prevent relapse in times of stress and illness. 05/10/2024 History of depression (ICD-10 - Z86.59) She says her depression is well-controlled and that she is compliant with all of her medications. 06/11/2024 Former smoker (ICD-10 - Z87.891) She is highly motivated not to smoke. She has a plan to prevent relapse in times of stress and illness. 07/12/2024 Former smoker (ICD-10 - Z87.891) She is highly motivated not to smoke. She has a plan to prevent relapse in times of stress and illness. 08/13/2024 Former smoker (ICD-10 - Z87.891) She is highly motivated not to smoke. She has a plan to prevent relapse in times of stress and illness. 09/11/2024 Former smoker (ICD-10 - Z87.891) She is highly motivated not to smoke. She has a plan to prevent relapse in times of stress and illness. Plan Of Treatment Next Appt Details Provider Name:Edmundo Carlito, 11/06/2024 01:00:00 PM, [address] [facility] [address], [place], [address], Provider Name:Edmundo Esteban, 12/04/2024 01:00:00 PM, [address] [facility] [address], [place], [address], Provider Name:Edmundo Esteban, 01/01/2025 01:00:00 PM, [address] [facility] [address], [place], [address], Insurance Providers Payer Name Payer Address Payer Phone Subscriber Number Group Number Insured Name Patient Relationship to Insured Coverage Start Date Coverage End Date MEDICARE NGS [address] [place] [address] [id number] Kanwal Sanches Self - patient is the insured [place] [address] [place] [id number] [phone] [id number] Kanwal Sanches Self - patient is the insured Medical (General) History Medical History History ICD Code multiple sclerosis bipolar disorder 2 para 2 cigarette smoker history of depression [id number] 07/2021 Surgical History Surgery Date(Month/Year) [id number] 2008 Hospitalization History Reason Date(Month/Year) Child 02/2020
[2024-10-21 14:37] LABS: HPV Genotype 16 Negative (Negative); HPV Genotype 18 Negative (Negative); HPV High Risk Positive (Negative)
== END 2024-10-15 10:55 | disposition home or self-care (01) ==
LOC: HO.LNP 10:54
PROVIDERS: PCP Family Medicine; Visit Provider Obstetrics & Gynecology
DX: Z01.419 Encounter for gynecological examination (general) (routine) without abnormal findings (principal); N84.1 Polyp of cervix uteri; N94.9 Unspecified condition associated with female genital organs and menstrual cycle; R22.2 Localized swelling, mass and lump, trunk
CPT/HCPCS: 57500; 87626; 88175; 88305; 99212

== ENCOUNTER 2024-10-29 09:57 | Outpatient (REF) | payer MEDICARE, MEDICAID, SELFPAY | END 2024-10-29 09:58 | disposition home or self-care (01) | LOC: HO.LNP 09:57 | PROVIDERS: PCP Family Medicine; Visit Provider Obstetrics & Gynecology | DX: R87.613 High grade squamous intraepithelial lesion on cytologic smear of cervix (HGSIL) (principal) | CPT/HCPCS: 57454; 81025; 88305 ==

== ENCOUNTER 2024-10-29 09:57 | Outpatient (AMB) | payer MEDICARE, MEDICAID, SELFPAY ==
--- NOTE | 2024-10-29 09:58 | A.OFFVIS_ITS ---
Intake Visit Reasons: Colposcopy Allergies No Known Allergies Allergy (Verified 10/15/24 11:31) HPI Comments Details: Presenting for abnormal Pap smear showing the following: Satisfactory for evaluation, with severely dysplastic squamous cells (SABINE 3; high grade squamous intraepithelial lesion). HPV High Risk: Positive HPV Genotyping 16: Negative HPV Genotyping 18: Negative Polypectomy pathology showed the following: Endocervical polyp, resection: High-grade squamous intraepithelial lesion (moderate dysplasia, SABINE 2) involving an endocervical polyp [facility] Medical History Bipolar 1 disorder Multiple sclerosis Family History Father Lung cancer Social History Household Members: Spouse and Children Housing: House Alcohol intake: former Patient Tobacco Use Status: Current everyday Tobacco user Tobacco use type: Cigar Cigarettes Per Day: 5 Years Smoked: 13 Current occupational status: disabled Sexual orientation: Straight/Heterosexual Gender identity: Female Female Reproductive History Menstrual Age of Menarche: 12 Date of last menstrual period: 10/22/24 control method: none Total pregnancies: 3 Full term: 2 Date of last pap smear: 10/15/24 History of abnormal pap smear: Yes Review of Systems Const All systems reviewed & are unremarkable except as noted in HPI and below Reports as per HPI and Reports no additional complaints GI Reports no additional complaints Reports no additional complaints Office Procedures Colposcopy Colposcopy: Pre-Procedure Counseling: Before beginning the procedure, I conducted comprehensive counseling with the patient. We thoroughly discussed the procedure itself, including its details, alternatives, and all associated risks. This included but not limited to the following complications such as bleeding, infection, and injury to the vagina, bladder, and vessels, as well as the potential need for transfusion with all its associated risks. Subsequently, the patient sign the consent. Pap smear result: HSIL/HPV positive, polypectomy pathology showed SABINE 3. Urine test in office = Negative Procedure: During the procedure, the following steps were performed: A speculum was inserted, and acetic acid was applied. Colposcopy was conducted, allowing visualization of the transformation zone. Acetowhite lesions were identified at the 4+6+8+9+11+12+1 o'clock position. Cervical biopsies were obtained from the 4+6+8+9+11+12+1 o'clock position, followed by an endocervical curettage (ECC). Vaginoscopy of the upper vagina revealed no evidence of aceto-white lesions. Hemostasis was achieved using Monsel solution, and the patient tolerated the procedure well. Post-Procedure Instructions: The patient was advised to promptly contact the office or the after hours answering service or go to the emergency room if experiencing a temperature exceeding 100.4?F, abdominal pain, nausea/vomiting, or bleeding. Additionally, the patient was instructed to abstain from vaginal intercourse and bathtub use. The patient confirmed understanding of these instructions. Discharge Instructions: The patient was instructed to schedule a follow-up appointment in 2 weeks for further evaluation and management. Please note that this note was generated using a voice recognition program, and errors may have occurred during fast food crew lead. [id number] of cervix including upper vagina with biopsy and ECC Procedure code (CPT) selection complete Assessment & Plan Assessment & Plan (1) HGSIL (high grade squamous intraepithelial lesion) on Pap smear of cervix: Comment: HPV positive Code(s): R87.613 - High grade squamous intraepithelial lesion on cytologic smear of cervix (HGSIL) Category: Medical Plan: Discussed with the patient the result of her abnormal pap, its significance, risk of progression, persistence, and regression. the false positive/negative rate of a Pap smear as a screening test in detecting cervical cancer and the indication for a diagnostic test -colposcopy, biopsy, endocervical curettage. The patient verbalized understanding and agreed with the plan, all questions answered. Colpo biopsy ECC done, see procedure note Orders: Orders AMB Colposcopy Today R87.613 - High grade squamous intraepithelial lesion on cytologic smear of cervix (HGSIL) Coding Level of Care Code Procedure Only Diagnoses HGSIL (high grade squamous intraepithelial lesion) on Pap smear of cervix R87.613 CPT Codes Colposcopy - CPT: 95420-Dyfgerekb of cervix including upper vagina with biopsy and ECC ([id number])
--- OUTSIDE RECORDS SUMMARY | 2024-10-29 11:14 | XMS_ITS ---
Author Organization Edmundo Esteban III, MD Address [address] [place] [address] Care Team Providers Care Macroeconomics Professor Name Role Phone Jorge Swanson MD Primary Care Provider Unavailab Edmundo Marks Unavailable [phone] Sylwia Joseph MD Unavailable Unavailable Allergies Allergen [...] Date Provider Diagnosis Edmundo Esteban III, MD [address] [place] [address] [place] [address] 08/13/2024 Edmundo Esteban MS (multiple sclerosis) G35 [...] tests Provider Name:Edmundo Esteban, 11/06/2024 01:00:00 PM, [address] [place] [address] [place], [address], Provider Name:Edmundo Esteban, 12/04/2024 01:00:00 PM, [address] [place] [address] [place], [address], Provider Name:Edmundo Esteban, 01/01/2025 01:00:00 PM, [address] [place] [address] [place], [address], Procedure Notes * Category Sub-Category Detail Notes Chemotherapy Start and End Time: start, 1:00 pm, end, 2:00 pm Site: left hand Consent: verbal consent was o btained prior to procedure Medications given: Tysabri 300 mg Monitored by: HAILY Copeland route IV Progress Notes * Kanwal NGDOB:[birth year] (39 yo F)Acc No.[id number]:08/13/2024 Patient:Kanwal PEREZ Provider:?Edmundo Esteban MD :1985???Age:39 Y???Sex:Female D ate:08/13/2024 Address:[address] [place], [place] [phone] Pcp:Jorge Swanson MD Subjective: * Chief Complaints: [...] pain?denies.?Psychiatric:?Depressed mood?denies.? * Medical History:? * Surgical History:?[id number] 20 09 * Hospitalization/Major Diagno stic Procedure:?Child [...] Tobacco Non-User?Ex-cigarette smoker ???She was born in [place], [place]. 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 * Medications:?TakingVitamin [...] 300 mg.?Monitored by:?Melemory P, ASMA.?route?IV.? * Procedure Codes:?66017 CHEMO , IV INFUSION, 1 [id number] NATALIZUMAB INJECTION * Preventive Medicine:? ??Counseling:?Smoking/Tobacco Use?Patient counseled on the dangers of tobacco use and urged to quit.?08/13/2024 * Follow Up:?4 Weeks (Reason: Tysabri infusion no tests) * Images: * Sign off status: Completed true * Provider:?Edmundo Esteban MD Date:?10/2024 Generated for Sanam leary/Maxx/eTransmitting on:?10/29/2024 11:14 AM EDT History and Physical Notes * [...]
--- OUTSIDE RECORDS SUMMARY | 2024-10-29 11:14 | XMS_ITS | Patient Health Record ---
Author Organization Edmundo Esteban III, MD Address [address] [place] [address] Care Team Providers Care Vehicle Painter Name Role Phone Jorge Swanson MD Primary Care Provider Unavailab Edmundo Marks Unavailable [phone] Sylwia Joseph MD Unavailable Unavailable Allergies Allergen [...] Problem Status W/U Status Risk Notes Problem 7802091 Former smoker (Z87.891) Active confirmed She is highly motivated not to smoke. She has a plan to prevent relapse in times of stress and illness. Problem 65166540 MS (multiple sclerosis) (G35) Active confirmed She was treated today with 300 mg Tysabri monoclonal antibody therapy without incident. She will return in one month. Problem 112740691 History of depression (Z86.59) Active confirmed She says her depression is well-controll ed and that she is compliant with all of her medications. Problem 278024583 Bipolar 1 disorder (F31.9) Active confirmed This disorder is in long-term remission. Vital Signs Heart Rate 83 /min 10/09/2024 Temperature 99.1 degrees Fahrenheit 11/14/2023 Blood pressure diastolic 81 mm Hg 10/09/2024 Height 60 in 10/09/2024 Blood pressure systolic 109 mm Hg 10/09/2024 Weight 114 lbs 10/09/2024 BMI 22.26 kg/m2 10/09/2024 Encounters Encounter Location Date Provider Diagnosis Edmundo Esteban III, MD [address] [place] [address] [place] [address] 12/12/2023 Edmundo Esteban MS (multiple sclerosis) G35 ; Bipolar 1 disorder F31.9 and History of depression Z86.59 Edmundo Esteban III, MD [address] [place] [address] [place] [address] 01/09/2024 Edmundo Esteban MS (multiple sclerosis) G35 ; Bipolar 1 disorder F31.9 ; History of depression Z86.59 and Former smoker Z87.891 Edmundo Esteban III, MD [address] [place] [address] [place] [address] 11/14/2023 Edmundo Esteban MS (multiple sclerosis) G35 ; History of depression Z86.59 ; Bipolar 1 disorder F31.9 and Former smoker Z87.891 Edmundo Esteban III, MD [address] [place] [address] [place] [address] 02/14/2024 Edmundo Esteban MS (multiple sclerosis) G35 ; Bipolar 1 disorder F31.9 ; History of depression Z86.59 and Former smoker Z87.891 Edmundo Esteban III, MD [address] [place] [address] [place] [address] 03/13/2024 Edmundo Esteban MS (multiple sclerosis) G35 ; Bipolar 1 disorder F31.9 ; Former smoker Z87.891 and History of depression Z86.59 Edmundo Esteban III, MD [address] [place] [address] [place] [address] 04/12/2024 Edmundo Haasrne MS (multiple sclerosis) G35 ; Bipolar 1 disorder F31.9 ; History of depression Z86.59 and Former smoker Z87.891 Edmundo Esteban III, MD [address] [place] [address] [place] [address] 05/10/2024 Edmundo Haasrne MS (multiple sclerosis) G35 ; Former smoker Z87.891 ; Bipolar 1 disorder F31.9 and History of depression Z86.59 Edmundo Esteban III, MD [address] [place] [address] [place] [address] 06/11/2024 Edmundo Haasrne MS (multiple sclerosis) G35 ; Bipolar 1 disorder F31.9 ; History of depression Z86.59 and Former smoker Z87.891 Edmundo Esteban III, MD [address] [place] [address] [place] [address] 07/12/2024 Edmundo Haasrne MS (multiple sclerosis) G35 ; Bipolar 1 disorder F31.9 ; History of depression Z86.59 and Former smoker Z87.891 Edmundo Esteban III, MD [address] [place] [address] [place] [address] 08/13/2024 Edmundo Haasrne MS (multiple sclerosis) G35 ; Bipolar 1 disorder F31.9 ; History of depression Z86.59 and Former smoker Z87.891 Edmundo Esteban III, MD [address] [place] [address] [place] [address] 10/09/2024 Edmundo Haasrne MS (multiple sclerosis) G35 ; History of depression Z86.59 and Former smoker Z87.891 Edmundo Esteban III, MD [address] [place] [address] [place] [address] 09/11/2024 Edmundo Esteban MS (multiple sclerosis) G35 ; Bipolar 1 disorder F31.9 ; History of depression Z86.59 and Former smoker Z87.891 Edmundo Esteban III, MD [address] [place] [address] [address] [place], [place] [address] 12/06/2023 Edmundo Esteban Assessments Encounter Date Diagnosis [...] Of Treatment Next Appt Details Provider Name:Edmundo Esteban, 11/06/2024 01:00:00 PM, [address] [place] [address] [place], [address], Provider Name:Edmundo Esteban, 12/04/2024 01:00:00 PM, [facility] [place], [address], Provider Name:Edmundo Esteban, 01/01/2025 01:00:00 PM, [facility] [place], [address], Insurance Providers Payer Name Payer Address Payer Phone Subscriber Number Group Number Insured Name Patient Relationship to Insured Coverage Start Date Coverage End Date MEDICARE NGS [address] [place] [address] [id number] Kanwal Sanches Self - patient is the insured MED[place] [address] [place] [id number] [phone] [id number] Kanwal Sanches Self - patient is the insured Medical (General) History Medical History History ICD Code multiple sclerosis bipolar disorder 2 para 2 cigarette smoker history of depression covid19 07/2021 Surgical History Surgery Date(Month/Year) [id number] 2008 Hospitalization History Reason Date(Month/Year) Child 02/2020
--- OUTSIDE RECORDS SUMMARY | 2024-10-29 11:14 | XMS_ITS ---
Author Organization Edmundo Esteban III, MD Address [address] [place] [address] Care Team Providers Care Belt Back Operator Name Role Phone Jorge Swanson MD Primary Care Provider Unavailab Edmundo Marks Unavailable [phone] Sylwia Joseph MD Unavailable Unavailable Allergies Allergen [...] Date Provider Diagnosis Edmundo Esteban III, MD [address] [place] [address] [place] [address] 10/09/2024 Edmundo Esteban MS (multiple sclerosis) G35 [...] Infusion Provider Name:Edmundo Esteban, 11/06/2024 01:00:00 PM, [address] [place] [address] [place], [address], Provider Name:Edmundo Esteban, 12/04/2024 01:00:00 PM, [address] [place] [address] [place], [address], Provider Name:Edmundo Esteban, 01/01/2025 01:00:00 PM, [address] [place] [address] [place], [address], Procedure Notes * Category Sub-Category Detail Notes Chemotherapy Start and End Time: start, 1:00 pm, end, 2:00 pm Site: left hand Consent: verbal consent was o btained prior to procedure Medications given: Tysabri 300 mg Monitored by: Melianet P, ASMA port flush none route IV Progress Notes * Kanwal NGDOB:[birth year] (39 yo F)Acc No.[id number]:10/09/2024 Patient:?Kanwal NG Provider:?Edmundo Esteban MD :1985???Age:39 Y???Sex:Female D ate:10/09/2024 Address:[address] [place], [place] [address] Pcp:Jorge Swanson MD Subjective: * Chief Complaints: [...] pain?denies.?Psychiatric:?Depressed mood?denies.? * Medical History:? * Surgical History:?[id number] 29 03 * Hospitalization/Major Diagno stic Procedure:?Child [...] Tobacco Non-User?Ex-cigarette smoker ???She was born in [place], [place]. 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 * [...] mg.?Monitored by:?Lennox P, ASMA.?port flush?none.?route?IV.? * Procedure Codes:?01361 CHEMO , IV INFUSION, 1 [id number] NATALIZUMAB INJECTION * Preventive Medicine:? ??Counseling:?Smoking/Tobacco Use?Patient counseled on the dangers of tobacco use and urged to quit.?10/09/2024 * Follow Up:?4 Weeks (Reason: Tysabri Infusion) * Images: * Sign off status: Completed true * Provider:?Edmundo Esteban MD Date:?08/2024 Generated for Sanam leary/Maxx/eTransmitting on:?10/29/2024 11:14 AM [...]
--- OUTSIDE RECORDS SUMMARY | 2024-10-29 11:14 | XMS_ITS ---
Author Organization Edmundo Esteban III, MD Address [address] [place] [address] Care Team Providers Care Orthodontic Laboratory Technician Name Role Phone Jorge Swanson MD Primary Care Provider Unavailab Edmunod Marks Unavailable [phone] Sylwia Joseph MD Unavailable Unavailable Allergies Allergen [...] Date Provider Diagnosis Edmundo Esteban III, MD [address] [place] [address] [place] [address] 09/11/2024 Edmundo Esteban MS (multiple sclerosis) G35 [...] tests Provider Name:Edmundo Esteban, 11/06/2024 01:00:00 PM, [address] [place] [address] [place], [address], Provider Name:Edmundo Esteban, 12/04/2024 01:00:00 PM, [address] [place] [address] [place], [address], Provider Name:Edmundo Esteban, 01/01/2025 01:00:00 PM, [address] [place] [address] [place], [address], Procedure Notes * Category Sub-Category Detail Notes Chemotherapy Start and End Time: start, 1:00 pm, end, 2:00 pm Site: right hand Consent: verbal consent was o btained prior to procedure Medications given: Tysabri 300 mg Monitored by: HAILY Copeland port flush none route IV Progress Notes * Kawnal NGDOB:[birth year] (39 yo F)Acc No.[id number]:09/11/2024 Patient:Kanwal PEREZ Provider:?Edmundo Esteban MD :1985???Age:39 Y???Sex:Female D ate:09/11/2024 Address:[address] [place], [place] [address] Pcp:Jorge Swanson MD Subjective: * Chief Complaints: [...] pain?denies.?Psychiatric:?Depressed mood?denies.? * Medical History:? * Surgical History:?[id number] 20 * Hospitalization/Major Diagno stic Procedure:?Child 02/2020 [...] Tobacco Non-User?Ex-cigarette smoker ???She was born in [place], [place]. 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 * [...] mg.?Monitored by:?Melianet P, ASMA.?port flush?none.?route?IV.? * Procedure Codes:?59408 CHEMO , IV INFUSION, 1 [id number] NATALIZUMAB INJECTION * Preventive Medicine:? ??Counseling:?Smoking/Tobacco Use?Patient counseled on the dangers of tobacco use and urged to quit.?09/11/2024 * Follow Up:?4 Weeks (Reason: Tysabri no tests) * Images: * Sign off status: Completed true * Provider:?Edmundo Esteban MD Date:?11/2024 Generated for Sui ng/Fakacig/eTransmitting on:?10/29/2024 11:14 AM EDT History and Physical [...]
== END 2024-10-29 10:31 | disposition home or self-care (01) ==
LOC: HO.HWS 09:57
PROVIDERS: PCP Family Medicine; Visit Provider Obstetrics & Gynecology
DX: R87.613 High grade squamous intraepithelial lesion on cytologic smear of cervix (HGSIL) (principal); Z32.02 Encounter for pregnancy test, result negative
CPT/HCPCS: 57454

== ENCOUNTER 2024-10-31 09:50 | Outpatient (AMB) | payer MEDICARE, MEDICAID, SELFPAY ==
--- NOTE | 2024-10-31 09:56 | A.OFFVIS_ITS ---
Vital Signs 3 10/31/24 10:02 Height 5 ft 2 in Weight 114 lb 2 oz BMI 20.9 BP 127/76 Blood Pressure Location Lt brachial Position Sitting Pulse 70 Intake Visit Reasons: Swelling lump on trunk Intake Note: Patient is seen in office for evaluation of a lump of the left armpit. Pt c/o: onset for yrs, increase/decrease, denies redness, discharge or other concerns ref [employer] Equipment Overhauler Required: No Accompanied by: Self / Same As Patient Allergies No Known Allergies Allergy (Verified 10/31/24 09:58) Medication List - Last Reconciled 10/31/24 by Sharad Starks MD gabapentin 300 mg PO BID natalizumab (Tysabri) mg IV HPI Comments Details: 39-year-old female patient presenting for evaluation of a lump in the left axilla. The lump has been present for many years and occasionally will increase in decrease in size. There periods of increased pain but currently she reports minimal discomfort. She denies a previous history of bleeding or discharge from the site. She denies previous surgery in this location. She was interested in having the lesion excised. [facility] Medical History Bipolar 1 disorder Multiple sclerosis Family History Father Lung cancer Social History Household Members: Spouse and Children Housing: House Alcohol intake: former Patient Tobacco Use Status: Current everyday Tobacco user Tobacco use type: Cigar Cigarettes Per Day: 5 Years Smoked: 13 Current occupational status: disabled Sexual orientation: Straight/Heterosexual Gender identity: Female Female Reproductive History Menstrual Age of Menarche: 12 Physical Exam Vital Signs: Last Vital Signs Pulse 70 10/31/24 10:02 BP 127/76 10/31/24 10:02 BMI result Body Mass Index 20.9 Const General: comfortable Nutritional Appearance: well nourished Orientation/consciousness: patient oriented x3 Chest Other: Left axilla with a palpable epidermal cyst measuring approximately 2 x 1 cm, nontender to palpation with no evidence of fluctuance or discharge. Findings suggestive of an epidermal inclusion cyst. No underlying lymphadenopathy appreciated. Chest/axillae images: 2 1. Site of palpable cyst left axilla Resp Effort & Inspection: normal respiratory effort GI Inspection: Yes normal to inspection Skin Other: Warm, dry, no rash Neuro General: patient oriented x3 Extrem Other: No edema Assessment & Plan Assessment & Plan (1) Epidermal inclusion cyst: Code(s): L72.0 - Epidermal cyst Category: Medical Plan 39-year-old female patient presenting with a soft tissue mass in the left axilla which occasionally causes discomfort. On examination there is a epidermal inclusion cyst which is currently not infected. We discussed the option of excision of this lesion either under local anesthesia verses general anesthesia. She will consider her options and schedule the surgery when she was ready. I reviewed the procedure, risks, and alternatives and she consents to excision of the left axillary epidermal inclusion cyst. Coding Level of Care Code New Pt Level 4 (48051) Diagnoses Epidermal inclusion cyst L72.0
[2024-10-31 10:02] VITALS: BP 127/76; PULSE 70; BMI 20.9
--- OUTSIDE RECORDS SUMMARY | 2024-10-31 11:03 | XMS_ITS ---
Author Organization Edmundo Esteban III, MD Address [address] [place] [address] Care Team Providers Care Stem Mounter Name Role Phone Jorge Swanson MD Primary Care Provider Unavailab Edmundo Marks Unavailable [phone] Sylwia Joseph MD Unavailable Unavailable Allergies Allergen [...] Date Provider Diagnosis Edmundo Esteban III, MD [address] [place] [address] [place] [address] 08/13/2024 Edmundo Esteban MS (multiple sclerosis) G35 [...] tests Provider Name:Edmundo Esteban, 11/06/2024 01:00:00 PM, [address] [place] [address] [place], [address], Provider Name:Edmundo Esteban, 12/04/2024 01:00:00 PM, [address] [place] [address] [place], [address], Provider Name:Edmundo Esteban, 01/01/2025 01:00:00 PM, [address] [place] [address] [place], [address], Procedure Notes * Category Sub-Category Detail Notes Chemotherapy Start and End Time: start, 1:00 pm, end, 2:00 pm Site: left hand Consent: verbal consent was o btained prior to procedure Medications given: Tysabri 300 mg Monitored by: HAILY Copeland route IV Progress Notes * Kanwal NGDOB:[birth year] (39 yo F)Acc No.[id number]:08/13/2024 Patient:Kanwal PEREZ Provider:?Edmundo Esteban MD :1985???Age:39 Y???Sex:Female D ate:08/13/2024 Address:[address] [place], [place] [address] Pcp:Jorge Swanson MD Subjective: * Chief Complaints: [...] pain?denies.?Psychiatric:?Depressed mood?denies.? * Medical History:? * Surgical History:?[id number] 20 09 * Hospitalization/Major Diagno stic Procedure:?Child [...] Tobacco Non-User?Ex-cigarette smoker ???She was born in [place], [place]. 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 * [...] 300 mg.?Monitored by:?Melemory P, ASMA.?route?IV.? * Procedure Codes:?82966 CHEMO , IV INFUSION, 1 [id number] NATALIZUMAB INJECTION * Preventive Medicine:? ??Counseling:?Smoking/Tobacco Use?Patient counseled on the dangers of tobacco use and urged to quit.?08/13/2024 * Follow Up:?4 Weeks (Reason: Tysabri infusion no tests) * Images: * Sign off status: Completed true * Provider:?Edmundo Esteban MD Date:?10/2024 Generated for Sanam leary/Maxx/eTransmitting on:?10/31/2024 11:03 AM EDT History and Physical Notes * [...]
--- OUTSIDE RECORDS SUMMARY | 2024-10-31 11:03 | XMS_ITS | Patient Health Record ---
Author Organization Edmundo Esteban III, MD Address [address] [place] [address] Care Team Providers Care Room Service Attendant Name Role Phone Jorge Swanson MD Primary Care Provider Unavailab Edmundo Marks Unavailable [phone] Sylwia Joseph MD Unavailable Unavailable Allergies Allergen [...] Problem Status W/U Status Risk Notes Problem 2706826 Former smoker (Z87.891) Active confirmed She is highly motivated not to smoke. She has a plan to prevent relapse in times of stress and illness. Problem 75047146 MS (multiple sclerosis) (G35) Active confirmed She was treated today with 300 mg Tysabri monoclonal antibody therapy without incident. She will return in one month. Problem 310435382 History of depression (Z86.59) Active confirmed She says her depression is well-controll ed and that she is compliant with all of her medications. Problem 831993648 Bipolar 1 disorder (F31.9) Active confirmed This disorder is in long-term remission. Vital Signs Heart Rate 83 /min 10/09/2024 Temperature 99.1 degrees Fahrenheit 11/14/2023 Blood pressure diastolic 81 mm Hg 10/09/2024 Height 60 in 10/09/2024 Blood pressure systolic 109 mm Hg 10/09/2024 Weight 114 lbs 10/09/2024 BMI 22.26 kg/m2 10/09/2024 Encounters Encounter Location Date Provider Diagnosis Edmundo Esteban III, MD [address] [place] [address] [place] [address] 12/12/2023 Edmundo Esteban MS (multiple sclerosis) G35 ; Bipolar 1 disorder F31.9 and History of depression Z86.59 Edmundo Esteban III, MD [address] [place] [address] [place] [id number] 01/09/2024 Edmundo Esteban MS (multiple sclerosis) G35 ; Bipolar 1 disorder F31.9 ; History of depression Z86.59 and Former smoker Z87.891 Edmundo Esteban III, MD [address] [place] [address] [place] [address] 11/14/2023 Edmundo Esteban MS (multiple sclerosis) G35 ; History of depression Z86.59 ; Bipolar 1 disorder F31.9 and Former smoker Z87.891 Edmundo Esteban III, MD [address] [place] [address] [place] [address] 02/14/2024 Edmundo Esteban MS (multiple sclerosis) G35 ; Bipolar 1 disorder F31.9 ; History of depression Z86.59 and Former smoker Z87.891 Edmundo Esteban III, MD [address] [place] [address] [place] [id number] 03/13/2024 Edmundo Esteban MS (multiple sclerosis) G35 ; Bipolar 1 disorder F31.9 ; Former smoker Z87.891 and History of depression Z86.59 Edmundo Esteban III, MD [address] [place] [address] [place] [address] 04/12/2024 Edmundo Haasrne MS (multiple sclerosis) G35 ; Bipolar 1 disorder F31.9 ; History of depression Z86.59 and Former smoker Z87.891 Edmundo Esteban III, MD [address] [place] [address] [place] [address] 05/10/2024 Edmundo Haasrne MS (multiple sclerosis) G35 ; Former smoker Z87.891 ; Bipolar 1 disorder F31.9 and History of depression Z86.59 Edmundo Esteban III, MD [address] [place] [address] [place] [address] 06/11/2024 Edmundo Haasrne MS (multiple sclerosis) G35 ; Bipolar 1 disorder F31.9 ; History of depression Z86.59 and Former smoker Z87.891 Edmundo Esteban III, MD [address] [place] [address] [place] [address] 07/12/2024 Edmundo Haasrne MS (multiple sclerosis) G35 ; Bipolar 1 disorder F31.9 ; History of depression Z86.59 and Former smoker Z87.891 Edmundo Esteban III, MD [address] [place] [address] [place] [id number] 08/13/2024 Edmundo Haasrne MS (multiple sclerosis) G35 ; Bipolar 1 disorder F31.9 ; History of depression Z86.59 and Former smoker Z87.891 Edmundo Esteban III, MD [address] [place] [address] [place] [address] 10/09/2024 Edmunod Haasrne MS (multiple sclerosis) G35 ; History of depression Z86.59 and Former smoker Z87.891 Edmundo Esteban III, MD [address] [place] [address] [place] [id number] 09/11/2024 Edmundo Esteban MS (multiple sclerosis) G35 ; Bipolar 1 disorder F31.9 ; History of depression Z86.59 and Former smoker Z87.891 Edmundo Esteban III, MD [address] [place] [address] [address] [place], [place] [address] 12/06/2023 Edmundo Esteban Assessments Encounter Date Diagnosis [...] Details Provider Name:Edmundo Esteban, 11/06/2024 01:00:00 PM, [address] [place] [address] [place], [address], Provider Name:Edmundo Esteban, 12/04/2024 01:00:00 PM, [facility] [place], [address], Provider Name:Edmundo Esteban, 01/01/2025 01:00:00 PM, [facility] [place], [address], Insurance Providers Payer Name Payer Address Payer Phone Subscriber Number Group Number Insured Name Patient Relationship to Insured Coverage Start Date Coverage End Date MEDICARE NGS [address] [place] [address] [id number] Kanwal Sanches Self - patient is the insured [place] [address] A[place]AR[place] [id number] [phone] [id number] Kanwal Sanches Self - patient is the insured Medical (General) History Medical History History ICD Code multiple sclerosis bipolar disorder 2 para 2 cigarette smoker history of depression [id number] 07/2021 Surgical History Surgery Date(Month/Year) [id number] 2008 Hospitalization History Reason Date(Month/Year) Child 02/2020
--- OUTSIDE RECORDS SUMMARY | 2024-10-31 11:03 | XMS_ITS ---
Author Organization Edmundo Esteban III, MD Address [address] [place] [address] Care Team Providers Care Systems Technician Name Role Phone Jorge Swanson MD Primary Care Provider Unavailab Edmundo Marks Unavailable [phone] Sylwia Joseph MD Unavailable Unavailable Allergies Allergen [...] Date Provider Diagnosis Edmundo Esteban III, MD [address] [place] [address] [place] [address] 09/11/2024 Edmundo Esteban MS (multiple sclerosis) G35 [...] tests Provider Name:Edmundo Esteban, 11/06/2024 01:00:00 PM, [address] [place] [address] [place], [address], Provider Name:Edmundo Esteban, 12/04/2024 01:00:00 PM, [address] [place] [address] [place], [address], Provider Name:Edmundo Esteban, 01/01/2025 01:00:00 PM, [address] [place] [address] [place], [address], Procedure Notes * Category Sub-Category Detail Notes Chemotherapy Start and End Time: start, 1:00 pm, end, 2:00 pm Site: right hand Consent: verbal consent was o btained prior to procedure Medications given: Tysabri 300 mg Monitored by: HAILY Copeland port flush none route IV Progress Notes * Kanwal NGDOB:[birth year] (39 yo F)Acc No.[id number]:09/11/2024 Patient:Kanwal PEREZ Provider:?Edmundo Esteban MD :1985???Age:39 Y???Sex:Female D ate:09/11/2024 Address:[address] [place], [place] [address] Pcp:Jorge Swanson MD Subjective: * Chief Complaints: [...] pain?denies.?Psychiatric:?Depressed mood?denies.? * Medical History:? * Surgical History:?[id number] 20 * Hospitalization/Major Diagno stic Procedure:?Child 02/2020 [...] Tobacco Non-User?Ex-cigarette smoker ???She was born in [place], [place]. 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 * [...] mg.?Monitored by:?Melianet P, ASMA.?port flush?none.?route?IV.? * Procedure Codes:?25505 CHEMO , IV INFUSION, 1 [id number] NATALIZUMAB INJECTION * Preventive Medicine:? ??Counseling:?Smoking/Tobacco Use?Patient counseled on the dangers of tobacco use and urged to quit.?09/11/2024 * Follow Up:?4 Weeks (Reason: Tysabri no tests) * Images: * Sign off status: Completed true * Provider:?Edmundo Esteban MD Date:?11/2024 Generated for Sui ng/Fakacig/eTransmitting on:?10/31/2024 11:03 AM EDT History and Physical [...]
--- OUTSIDE RECORDS SUMMARY | 2024-10-31 11:03 | XMS_ITS ---
Author Organization Edmundo Esteban III, MD Address [address] [place] [address] Care Team Providers Care Outdoor Pursuits Instructor Name Role Phone Jorge Swanson MD Primary Care Provider Unavailab Edmundo Marks Unavailable [phone] Sylwia Joseph MD Unavailable Unavailable Allergies Allergen [...] Date Provider Diagnosis Edmundo Esteban III, MD [address] [place] [address] [place] [address] 10/09/2024 Edmundo Esteban MS (multiple sclerosis) G35 [...] Infusion Provider Name:Edmundo Esteban, 11/06/2024 01:00:00 PM, [address] [place] [address] [place], [address], Provider Name:Edmundo Esteban, 12/04/2024 01:00:00 PM, [address] [place] [address] [place], [address], Provider Name:Edmundo Esteban, 01/01/2025 01:00:00 PM, [address] [place] [address] [place], [address], Procedure Notes * Category Sub-Category Detail Notes Chemotherapy Start and End Time: start, 1:00 pm, end, 2:00 pm Site: left hand Consent: verbal consent was o btained prior to procedure Medications given: Tysabri 300 mg Monitored by: Melianet P, ASMA port flush none route IV Progress Notes * Kanwal NGDOB:[birth year] (39 yo F)Acc No.[id number]:10/09/2024 Patient:?Kanwal NG Provider:?Edmundo Esteban MD :1985???Age:39 Y???Sex:Female D ate:10/09/2024 Address:[address] [place], [place] [address] Pcp:Jorge Swanson MD Subjective: * Chief Complaints: [...] pain?denies.?Psychiatric:?Depressed mood?denies.? * Medical History:? * Surgical History:?[id number] 29 03 * Hospitalization/Major Diagno stic Procedure:?Child [...] Tobacco Non-User?Ex-cigarette smoker ???She was born in [place], [place]. 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 * Medications:?TakingVitamin [...] mg.?Monitored by:?Lennox P, ASMA.?port flush?none.?route?IV.? * Procedure Codes:?95475 CHEMO , IV INFUSION, 1 [id number] NATALIZUMAB INJECTION * Preventive Medicine:? ??Counseling:?Smoking/Tobacco Use?Patient counseled on the dangers of tobacco use and urged to quit.?10/09/2024 * Follow Up:?4 Weeks (Reason: Tysabri Infusion) * Images: * Sign off status: Completed true * Provider:?Edmundo Esteban MD Date:?08/2024 Generated for Sanam leary/Maxx/eTransmitting on:?10/31/2024 11:03 AM [...]
== END 2024-10-31 10:40 | disposition home or self-care (01) ==
LOC: HO.HGS 09:50
PROVIDERS: PCP Family Medicine; Referring Provider Obstetrics & Gynecology; Visit Provider Surgery
DX: L72.0 Epidermal cyst (principal)
CPT/HCPCS: 99204

== ENCOUNTER → 2024-10-31 09:50 | Outpatient (BNVA) | payer MEDICARE, MEDICAID, SELFPAY | PROVIDERS: PCP Family Medicine; Referring Provider Obstetrics & Gynecology; Visit Provider Surgery | DX: D06.9 Carcinoma in situ of cervix, unspecified (principal); L72.0 Epidermal cyst; Z71.2 Person consulting for explanation of examination or test findings | CPT/HCPCS: 99202; 99212 ==

== ENCOUNTER 2024-10-31 10:26 | Outpatient (AMB) | payer MEDICARE, MEDICAID, SELFPAY ==
--- NOTE | 2024-10-31 10:30 | MHC.OFFVIS ---
Vital Signs 10/31/24 10:36 BP 102/64 Intake Visit Reasons: colpo results Allergies No Known Allergies Allergy (Verified 10/31/24 09:58) HPI Comments Details: Presenting post colpo for follow-up. The patient is doing well with no complaints. The pathology showed the following: A. Endocervix, curettage: No cervical tissue present. B. Cervix, 1 o'clock, biopsy: - High-grade squamous intraepithelial lesion (SABINE 2-3). - Endocervical epithelium within normal limits. C. Cervix, 4 o'clock, biopsy: - High-grade squamous intraepithelial lesion (SABINE 3). - Endocervical epithelium within normal limits. D. Cervix, 6 o'clock, biopsy: - High-grade squamous intraepithelial lesion (SABINE 2-3). - Endocervical epithelium within normal limits. E. Cervix, 8 o'clock, biopsy: - High-grade squamous intraepithelial lesion (SABINE 2-3). - Endocervical epithelium within normal limits. F. Cervix, 11 o'clock, biopsy: - High-grade squamous intraepithelial lesion (SABINE 3). - Endocervical epithelium within normal limits. G. Cervix, 12 o'clock, biopsy: - High-grade squamous intraepithelial lesion (SABINE 3). - Endocervical epithelium within normal limits. H. Cervix, 9 o'clock, biopsy: - High-grade squamous intraepithelial lesion (SABINE 3). - Endocervical epithelium within normal limits The patient had polypectomy, pathology showed the following: Endocervical polyp, resection: High-grade squamous intraepithelial lesion (moderate dysplasia, SABINE 2) involving an endocervical polyp. Pap smear showed high-grade JUANA HPV positive, HPV 16/18 negative [facility] Medical History Bipolar 1 disorder Multiple sclerosis Family History Father Lung cancer Social History Household Members: Spouse and Children Housing: House Alcohol intake: former Patient Tobacco Use Status: Current everyday Tobacco user Tobacco use type: Cigar Cigarettes Per Day: 5 Years Smoked: 13 Current occupational status: disabled Sexual orientation: Straight/Heterosexual Gender identity: Female Female Reproductive History Menstrual Age of Menarche: 12 Review of Systems Const All systems reviewed & are unremarkable except as noted in HPI and below Reports as per HPI and Reports no additional complaints GI Reports no additional complaints Reports no additional complaints Physical Exam Vital Signs: Last Vital Signs BP 102/64 10/31/24 10:36 Assessment & Plan Assessment & Plan (1) 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 Given the extensive diffuse disease will refer to Gyne Onc for further management Appointment schedule at [facility] dough molder hand Oncology with Dr. Ferrell on 11/15/2024 at 10:00, the patient is aware. Instructed the patient to call our office back in case a referral appointment is not scheduled, missed or canceled so that we will assist on rescheduling another appointment, the patient verbalized understanding agreed with the plan. Orders: Referrals Gynecologic Oncology Referral D06.9 - Carcinoma in situ of cervix, unspecified Coding Level of Care Code Est Pt Level 3 (96681) Diagnoses SABINE III (cervical intraepithelial neoplasia grade III) with severe dysplasia D06.9
[2024-10-31 10:36] VITALS: BP 102/64
== END 2024-10-31 11:08 | disposition home or self-care (01) ==
LOC: HO.HWS 10:26
PROVIDERS: PCP Family Medicine; Visit Provider Obstetrics & Gynecology
DX: D06.9 Carcinoma in situ of cervix, unspecified (principal)
CPT/HCPCS: 99213

== ENCOUNTER 2024-11-12 14:36 | Outpatient (REF) | payer MEDICAID, SELFPAY ==
[2024-11-12 14:41] VITALS: BP 112/70; PULSE 94; RESP 18; O2SAT 99; BMI 21.0
--- NOTE | 2024-11-12 15:19 | W.PM.OPN ---
Operative Note Operative Note Date of Service: 11/12/24 Narrative: Preoperative diagnosis: Inclusion cyst left axilla Postoperative diagnosis: Same Procedure: Excision of inclusion cyst left axilla Surgeon: Sharad Starks MD Photo Mask Processor: None Anesthesia: Lidocaine 1% with epinephrine Indications for procedure: 39-year-old female patient presenting with a cystic lesion in the left axilla located in the subcutaneous tissue and mobile within the the subcutaneous tissue Operative findings: A cystic lesion suggestive of a inclusion cyst Specimen: Inclusion cyst left axilla Estimated blood loss: Less than 2 mL Complications: None Procedure details: Patient was brought to the minor surgery suite and placed in a supine position. The patient confirmed the location of the lesion in the left axilla. After assuring informed consent the skin was prepped with Betadine and draped in a sterile fashion. Local anesthesia was then infiltrated over the palpable cyst. An incision was then made with a scalpel and carried out through subcutaneous tissue. Sharp dissection was then used to dissect the lesion from the surrounding subcutaneous tissue. The lesion was passed off the table and sent to pathology for further examination. Hemostasis was assured using light pressure. Skin was then closed using a subcuticular 4-0 Polysorb suture. Steri-Strips 2 x 2 gauze and Tegaderm were then applied. The patient tolerated the procedure well. Sponge, instrument, and needle counts were reported as correct. The patient was transferred to PACU in stable condition.
--- OUTSIDE RECORDS SUMMARY | 2024-11-12 15:49 | XMS_ITS ---
Author Organization Edmundo Esteban III, MD Address [address] [place] [address] Care Team Providers Care Clam Dredger Name Role Phone Jorge Swanson MD Primary Care Provider Unavailab Edmundo Marks Unavailable [phone] Sylwia Joseph MD Unavailable Unavailable Allergies Allergen [...] Date Provider Diagnosis Edmundo Esteban III, MD [address] [place] [address] [place] [address] 09/11/2024 Edmundo Esteban MS (multiple sclerosis) G35 [...] Reason: Tysabri no tests Provider Name:Edmundo Esteban, 12/04/2024 01:00:00 PM, [address] [place] [address] [place], [address], Provider Name:Edmundo Esteban, 01/01/2025 01:00:00 PM, [address] [place] [address] [place], [address], Procedure Notes * Category Sub-Category Detail Notes Chemotherapy Start and End Time: start, 1:00 pm, end, 2:00 pm Site: right hand Consent: verbal consent was o btained prior to procedure Medications given: Tysabri 300 mg Monitored by: HAILY Copeland port flush none route IV Progress Notes * Kanwal NGDOB:[birth year] (39 yo F)Acc No.[id number]:09/11/2024 Patient:?Kanwal NG Provider:?Edmundo Esteban MD :1985???Age:39 Y???Sex:Female D ate:09/11/2024 Address:[address] [place], [place] [address] Pcp:Jorge Swanson MD Subjective: * Chief Complaints: [...] pain?denies.?Psychiatric:?Depressed mood?denies.? * Medical History:? * Surgical History:?[id number] 29 03 * Hospitalization/Major Diagno stic Procedure:?Child [...] Tobacco Non-User?Ex-cigarette smoker ???She was born in [place], [place]. 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 [...] prior to procedure.?Medications given:?Tysabri 300 mg.?Monitored by:?Lennox Olson, ASMA.?port flush?none.?route?IV.? * Procedure Codes:?96499 CHEMO , IV INFUSION, 1 [id number] NATALIZUMAB INJECTION * Preventive Medicine:? ??Counseling:?Smoking/Tobacco Use?Patient counseled on the dangers of tobacco use and urged to quit.?09/11/2024 * Follow Up:?4 Weeks (Reason: Tysabri no tests) * Images: * Sign off status: Completed true * Provider:?Edmundo Esteban MD Date:?11/2024 Generated for Sanam leary/Maxx/Martine on:?11/12/2024 03:49 PM EDT History and Physical Notes * [...]
--- OUTSIDE RECORDS SUMMARY | 2024-11-12 15:49 | XMS_ITS ---
Author Organization Edmundo Esteban III, MD Address [address] [place] [address] Care Team Providers Care Special Education Professor Name Role Phone Jorge Swanson MD Primary Care Provider Unavailab Edmundo Marks Unavailable [phone] Sylwia Joseph MD Unavailable Unavailable Allergies Allergen [...] Date Provider Diagnosis Edmundo Esteban III, MD [address] [place] [address] [place] [address] 10/09/2024 Edmundo Esteban MS (multiple sclerosis) G35 [...] Weeks, Reason: Tysabri Infusion Provider Name:Edmundo Esteban, 12/04/2024 01:00:00 PM, [address] [place] [address] [address] [place], [place], [address], Provider Name:Edmundo Esteban, 01/01/2025 01:00:00 PM, [address] [place] [address] [address] [place], [place], [address], Procedure Notes * Category Sub-Category Detail Notes Chemotherapy Start and End Time: start, 1:00 pm, end, 2:00 pm Site: left hand Consent: verbal consent was o btained prior to procedure Medications given: Tysabri 300 mg Monitored by: HAILY Copeland port flush none route IV Progress Notes * Lennox NG:[birth year] (39 yo F)Acc No.[id number]:10/09/2024 Patient:?Kanwal NG Provider:?Edmundo Esteban MD :1985???Age:39 Y???Sex:Female D ate:10/09/2024 Address:[address] [place], [place] [address] Pcp:Jorge Swanson MD Subjective: * Chief Complaints: [...] pain?denies.?Psychiatric:?Depressed mood?denies.? * Medical History:? * Surgical History:?[id number] 29 03 * Hospitalization/Major Diagno stic Procedure:?Child [...] Tobacco Non-User?Ex-cigarette smoker ???She was born in [place], [place]. 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 [...] mg.?Monitored by:?Melianet P, ASMA.?port flush?none.?route?IV.? * Procedure Codes:?16398 CHEMO , IV INFUSION, 1 [id number] NATALIZUMAB INJECTION * Preventive Medicine:? ??Counseling:?Smoking/Tobacco Use?Patient counseled on the dangers of tobacco use and urged to quit.?10/09/2024 * Follow Up:?4 Weeks (Reason: Tysabri Infusion) * Images: * Sign off status: Completed true * Provider:?Edmundo Esteban MD Date:?08/2024 Generated for Sanam leary/Maxx/eTransmitting on:?11/12/2024 03:49 PM EDT History and Physical [...]
--- OUTSIDE RECORDS SUMMARY | 2024-11-12 15:49 | XMS_ITS ---
Author Organization Edmundo Esteban III, MD Address [address] [facility] [address] [place] [address] Care Team Providers Care Motor Power Connector Name Role Phone Jorge Swanson MD Primary Care Provider Unavailab Edmundo Marks Unavailable [phone] Sylwia Joseph MD Unavailable Unavailable Allergies Allergen [...] Date Provider Diagnosis Edmundo Esteban III, MD [address] [place] [address] [place] [address] 11/06/2024 Edmundo sEteban MS (multiple sclerosis) G35 ; History of [...] Tysabri infusion no tests Provider Name:Edmundo Esteban, 12/04/2024 01:00:00 PM, [address] [place] [address] [address], [place], [address], Provider Name:Edmundo Esteban, 01/01/2025 01:00:00 PM, [address] [place] [address] [place], [address], Procedure Notes * Category Sub-Category Detail Notes Chemotherapy Start and End Time: start, 1:00 pm, end, 2:00 pm Site: right hand Consent: verbal consent was o btained prior to procedure Medications given: Tysabri 300 mg Monitored by: HAILY Copeland port flush none route IV Progress Notes * Kanwal NGDOB:[birth year] (39 yo F)Acc No.[id number]:11/06/2024 Patient:?Kanwal NG Provider:?Edmundo Esteban MD :1985???Age:39 Y???Sex:Female D ate:11/06/2024 Address:[address] [place], [place] [address] Pcp:Jorge Swanson MD Subjective: * Chief Complaints: * ???Tysabri InfusionMultiple sclerosis * HPI: ???COVID-19 Screening:? She comes in today for another infusion of Tysabri monoclonal antibody therapy for the diagnosis of chronic relapsing multiple sclerosis.? She has been well since her last visit.? There were no contraindications to treatment she was treated without any incidents. ?Questions?Have you had any new onset fever, chills, cough, congestion, sore throat, shortness of breath, muscle aches??No * ROS:?General/Constitutional:?pain?only normal aches and pains.?Chills?denies.?Fatigue?admits.?Fever?denies.?ENT:?Decreased hearing?denies.?Respiratory:?Cough?denies.?Cardiovascular:?Chest pain with exertion?denies.?Dyspnea on exertion?denies.?Shortness of breath?denies.?Gastrointestinal:?Constipation?denies.?Decreased appetite?denies.?Diarrhea?denies.?Heartburn?denies.?Nausea?denies.?Rectal bleeding?denies.?Vomiting?denies.?Hematology:?bruising?denies.?petechiae?denies.?Swollen glands?none have been noted.?Genitourinary:?Frequent urination?denies.?Musculoskeletal:?Muscle aches?denies.?Painful joints?denies.?Sciatica?denies.?Weakness?denies.?Skin:?Itching?denies.?Rash?denies.?Skin lesion(s)?denies.?Neurologic:?Difficulty speaking?denies.?Dizziness?denies.?Headache?denies.?Low back pain?denies.?Psychiatric:?Depressed mood?which is mild.? * Medical History:? * Surgical History:?[id number] 29 03 * Hospitalization/Major Diagno stic Procedure:?Child [...] Tobacco Non-User?Ex-cigarette smoker ???She was born in [place], [place]. 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 * [...] Vitals:?Ht: 60, Wt: 114, BMI :22.26, BP: 80/47, HR: 71, Wt-k.71. * Examination: ???General Examination: ?GENERAL APPEARANCE:?pleasant, well nourished, well developed, in no acute distress, calm and relaxed, woman.?HEAD:?atraumatic, normocephalic.?EYES:?eomi, perrla, anicteric, conjugate.?EARS:?normal.?NOSE:?septum intact.?ORAL CAVITY:?normal, unremarkable.?NECK/THYROID:?no jugular venous distention, no carotid bruit, thyroid normal.?LYMPH NODES:?no enlarged lymph nodes,spleen normal.?SKIN:?no suspicious lesions, anicteric.?HEART:?no clicks, gallops, murmurs, or rubs, regular rhythm, S1, S2 normal, no s3, or vascular bruits.?LUNGS:?clear to auscultation .?BREASTS:??no masses palpable bilaterally.?ABDOMEN:?bowel sounds normal, no ascites, no organomegaly, no [...] she is compliant with all of her medications.???3.?Bipolar 1 disorder - F31.9???Notes :This disorder is in long-term remission.???4.?Former smoker - Z87.891???Notes :She is highly motivated not to smoke. She has a plan to prevent relapse in times of stress and illness.??? Plan: * Treatment: * Procedures:?Chemotherapy:?Start and End Time:?start, 1:00 pm, end, 2:00 pm.?Site:?right hand.?Consent:?verbal consent was obtained prior to procedure.?Medications given:?Tysabri 300 mg.?Monitored by:?Lennox Olson ASMA.?port flush?none.?route?IV.? * Procedure Codes:?24703 CHEMO , IV INFUSION, 1 [id number] NATALIZUMAB INJECTION * Preventive Medicine:? ??Counseling:?Smoking/Tobacco Use?Patient counseled on the dangers of tobacco use and urged to quit.?11/06/2024 * Follow Up:?4 Weeks (Reason: Tysabri infusion no tests) * Images: * Sign off status: Completed true * Provider:?Edmundo Esteban MD Date:?10/10 Generated for Sanam leary/Maxx/Zohaibitting on:?11/12/2024 03:49 PM EDT History and Physical [...]
--- OUTSIDE RECORDS SUMMARY | 2024-11-12 15:49 | XMS_ITS | Patient Health Record ---
Author Organization Edmundo Esteban III, MD Address [address] [place] [address] Care Team Providers Care Nutrition Aides Teacher Name Role Phone Jorge Swanson MD Primary Care Provider Unavailab Edmundo Marks Unavailable [phone] Sylwia Joseph MD Unavailable Unavailable Allergies Allergen [...] Problem Status W/U Status Risk Notes Problem 3711250 Former smoker (Z87.891) Active confirmed She is highly motivated not to smoke. She has a plan to prevent relapse in times of stress and illness. Problem 14996664 MS (multiple sclerosis) (G35) Active confirmed She was treated today with 300 mg Tysabri monoclonal antibody therapy without incident. She will return in one month. Problem 123157724 History of depression (Z86.59) Active confirmed She says her depression is well-controll ed and that she is compliant with all of her medications. Problem 429366979 Bipolar 1 disorder (F31.9) Active confirmed This disorder is in long-term remission. Vital Signs Heart Rate 71 /min 11/06/2024 Temperature 99.1 degrees Fahrenheit 11/14/2023 Blood pressure diastolic 47 mm Hg 11/06/2024 Height 60 in 11/06/2024 Blood pressure systolic 80 mm Hg 11/06/2024 Weight 114 lbs 11/06/2024 BMI 22.26 kg/m2 11/06/2024 Encounters Encounter Location Date Provider Diagnosis Edmundo Esteban III, MD [address] [place] [address] [place] [address] 12/12/2023 Edmundo Esteban MS (multiple sclerosis) G35 ; Bipolar 1 disorder F31.9 and History of depression Z86.59 Edmundo Esteban III, MD [address] [place] [address] [place] [address] 01/09/2024 Edmundo Esteban MS (multiple sclerosis) G35 ; Bipolar 1 disorder F31.9 ; History of depression Z86.59 and Former smoker Z87.891 Edmundo Esteban III, MD [address] [place] [address] [place] [address] 11/14/2023 Edmundo Esteban MS (multiple sclerosis) G35 ; History of depression Z86.59 ; Bipolar 1 disorder F31.9 and Former smoker Z87.891 Edmundo Esteban III, MD [address] [place] [address] [place] [address] 02/14/2024 Edmundo Esteban MS (multiple sclerosis) G35 ; Bipolar 1 disorder F31.9 ; History of depression Z86.59 and Former smoker Z87.891 Edmundo Esteban III, MD [address] [place] [address] [place] [address] 03/13/2024 Edmundo Esteban MS (multiple sclerosis) G35 ; Bipolar 1 disorder F31.9 ; Former smoker Z87.891 and History of depression Z86.59 Edmundo Esteban III, MD [address] [place] [address] [place] [address] 04/12/2024 Edmundo Haasrne MS (multiple sclerosis) G35 ; Bipolar 1 disorder F31.9 ; History of depression Z86.59 and Former smoker Z87.891 Edmundo Esteban III, MD [address] [place] [address] [place] [address] 05/10/2024 Edmundo Haasrne MS (multiple sclerosis) G35 ; Former smoker Z87.891 ; Bipolar 1 disorder F31.9 and History of depression Z86.59 Edmundo Esteban III, MD [address] [place] [address] [place] [address] 06/11/2024 Edmundo Haasrne MS (multiple sclerosis) G35 ; Bipolar 1 disorder F31.9 ; History of depression Z86.59 and Former smoker Z87.891 Edmundo Esteban III, MD [address] [place] [address] [place] [address] 07/12/2024 Edmundo Haasrne MS (multiple sclerosis) G35 ; Bipolar 1 disorder F31.9 ; History of depression Z86.59 and Former smoker Z87.891 Edmundo Esteban III, MD [address] [place] [address] [place] [address] 08/13/2024 Edmundo Haasrne MS (multiple sclerosis) G35 ; Bipolar 1 disorder F31.9 ; History of depression Z86.59 and Former smoker Z87.891 Edmundo Esteban III, MD [address] [place] [address] [place] [address] 10/09/2024 Edmundo Haasrne MS (multiple sclerosis) G35 ; History of depression Z86.59 and Former smoker Z87.891 Edmundo Esteban III, MD [address] [place] [address] [place] [address] 11/06/2024 Edmundo Esteban MS (multiple sclerosis) G35 ; History of depression Z86.59 ; Bipolar 1 disorder F31.9 and Former smoker Z87.891 Edmundo Esteban III, MD [address] [place] [address] [place] [address] 09/11/2024 Edmundo Esteban MS (multiple sclerosis) G35 ; Bipolar 1 disorder F31.9 ; History of depression Z86.59 and Former smoker Z87.891 Edmundo Esteban III, MD [address] [place] [address] [place] [address] 12/06/2023 Edmundo Esteban Assessments Encounter Date Diagnosis [...] compliant with all of her medications. 11/06/2024 MS (multiple sclerosis) (ICD-10 - G35) [...] relapse in times of stress and illness. 11/06/2024 Bipolar 1 disorder (ICD-10 - F31.9) [...] relapse in times of stress and illness. 11/06/2024 Former smoker (ICD-10 - Z87.891) She is highly motivated not to smoke. She has a plan to prevent relapse in times of stress and illness. 09/11/2024 Former smoker (ICD-10 - Z87.891) She is highly motivated not to smoke. She has a plan to prevent relapse in times of stress and illness. Plan Of Treatment Next Appt Details Provider Name:Edmundo Haasrne, 12/04/2024 01:00:00 PM, [address] [facility] [address], [place], [address], Provider Name:Edmundo Haasrne, 01/01/2025 01:00:00 PM, [address] [facility] [address], [place], [address], Insurance Providers Payer Name Payer Address Payer Phone Subscriber Number Group Number Insured Name Patient Relationship to Insured Coverage Start Date Coverage End Date MEDICARE NGS [address] [place] [address] [id number] Kanwal Sanches Self - patient is the insured [place] [address] [place] [id number] Kanwal Sanches Self - patient is the insured Medical (General) History Medical History History ICD Code multiple sclerosis bipolar disorder 2 para 2 cigarette smoker history of depression [id number] 07/2021 Surgical History Surgery Date(Month/Year) [id number] 2008 Hospitalization History Reason Date(Month/Year) Child 02/2020
== END 2024-11-12 14:37 | disposition home or self-care (01) ==
LOC: HO.MS 14:36
PROVIDERS: Visit Provider Surgery
PROC: (CPT 11402; principal; 2024-11-12 14:30)
DX: L72.0 Epidermal cyst (principal)
CPT/HCPCS: 11402; 88304; J2004

== ENCOUNTER → 2024-11-12 14:36 | Outpatient (BNV) | payer MEDICAID, SELFPAY | PROVIDERS: Visit Provider Surgery | DX: L72.0 Epidermal cyst (principal) | CPT/HCPCS: 11402 ==

== ENCOUNTER → 2024-11-21 09:28 | Outpatient (AMB) | payer MEDICARE, MEDICAID, SELFPAY ==
--- NOTE | 2024-11-21 09:42 | A.OFFVIS_ITS ---
Vital Signs 11/21/24 09:49 Height 5 ft 2 in Weight 115 lb BMI 21.0 BP 110/66 Blood Pressure Location Lt brachial Position Sitting Intake Visit Reasons: s/p excision of epidur inclusion cyst lft axilla Intake Note: Patient is seen in office for post excision left axilla. No complaints Newspaper Delivery Driver Required: No Allergies No Known Allergies Allergy (Verified 11/21/24 09:47) Medication List - Last Reconciled 11/21/24 by Elmer Arvizu RN gabapentin 300 mg PO BID natalizumab (Tysabri) mg IV HPI HPI s/p excision of epidur inclusion cyst lft axilla: Details: Patient states she is doing well after excision of epidural inclusion cyst of the left axilla, has no complaint at this time. Endorses some mild pain with certain movements however no pain when the area is touched. Denies fever or chills. States she let the dressings fall off on their own denies any discharge warmth redness swelling. Her only question is about shaving around the area, plans to avoid shaving the area for the time being. [facility] Medical History Bipolar 1 disorder Multiple sclerosis Family History Father Lung cancer Social History Household Members: Spouse and Children Housing: House Alcohol intake: former Patient Tobacco Use Status: Current everyday Tobacco user Tobacco use type: Cigar Cigarettes Per Day: 5 Years Smoked: 13 Current occupational status: disabled Sexual orientation: Straight/Heterosexual Gender identity: Female Female Reproductive History Menstrual Age of Menarche: 12 Review of Systems Const All systems reviewed & are unremarkable except as noted in HPI and below Physical Exam Vital Signs: Last Vital Signs BP 110/66 11/21/24 09:49 BMI result Body Mass Index 21.0 Const General: comfortable and no acute distress Orientation/consciousness: patient oriented x3 Resp Effort & Inspection: normal respiratory effort and able to speak in complete sentences Skin Other: Small 1.5 cm incision site in the left axilla, healing well no surrounding erythema warmth. Nontender. no evidence of fluid collection Neuro General: patient oriented x3 Assessment & Plan Assessment & Plan (1) Epidermal inclusion cyst: Code(s): L72.0 - Epidermal cyst Category: Medical Plan 39-year-old female status post excision of epidermal inclusion cyst of the left axilla on 11/12/2024. Surgical pathology results were as follows: Benign epidermal cyst. Patient is overall doing well the incision site is healing appropriately no concern for infection at this time. Patient instructed to keep the area clean avoid shaving for the next few weeks to allow for optimal healing. Patient okay to follow-up as needed if she has any concerns in the future Coding Level of Care Code Est Pt Level 2 (81784) Diagnoses Epidermal inclusion cyst L72.0
[2024-11-21 09:49] VITALS: BP 110/66; BMI 21.0
--- OUTSIDE RECORDS SUMMARY | 2024-11-21 10:14 | XMS_ITS ---
Author Organization Edmundo Esteban III, MD Address [address] [facility] [address] [place] [address] Care Team Providers Care Steam Train Driver Name Role Phone Jorge Swanson MD Primary Care Provider Unavailab Edmundo Marks Unavailable [phone] Sylwia Joseph MD Unavailable Unavailable Allergies Allergen [...] Provider Diagnosis Edmundo Esteban III, MD [address] [place] [address] [place] [address] 09/11/2024 Edmundo Esteban MS (multiple sclerosis) G35 [...] tests Provider Name:Edmundo Esteban, 12/04/2024 01:00:00 PM, [address] [place] [address] [place], [address], Provider Name:Edmundo Esteban, 01/01/2025 01:00:00 PM, [address] [place] [address] [place], [address], Procedure Notes * Category Sub-Category Detail Notes Chemotherapy Start and End Time: start, 1:00 pm, end, 2:00 pm Site: right hand Consent: verbal consent was o btained prior to procedure Medications given: Tysabri 300 mg Monitored by: HAILY Copeland port flush none route IV Progress Notes * Kanwal NGDOB:[birth year] (39 yo F)Acc No.[id number]:09/11/2024 Patient:?Kanwal NG Provider:?Edmundo Esteban MD :1985???Age:39 Y???Sex:Female D ate:09/11/2024 Address:[address] [place], [place] [address] Pcp:Jorge Swanson MD Subjective: * Chief Complaints: [...] pain?denies.?Psychiatric:?Depressed mood?denies.? * Medical History:? * Surgical History:?[id number] 29 03 * Hospitalization/Major Diagno stic Procedure:?Child [...] Tobacco Non-User?Ex-cigarette smoker ???She was born in [place], [place]. 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 * [...] mg.?Monitored by:?Lennox Olson, ASMA.?port flush?none.?route?IV.? * Procedure Codes:?33592 CHEMO , IV INFUSION, 1 [id number] NATALIZUMAB INJECTION * Preventive Medicine:? ??Counseling:?Smoking/Tobacco Use?Patient counseled on the dangers of tobacco use and urged to quit.?09/11/2024 * Follow Up:?4 Weeks (Reason: Tysabri no tests) * Images: * Sign off status: Completed true * Provider:?Edmundo Esteban MD Date:?11/2024 Generated for Sanam leary/Maxx/Martien on:?11/21/2024 10:14 AM EDT History and Physical Notes * [...]
--- OUTSIDE RECORDS SUMMARY | 2024-11-21 10:14 | XMS_ITS | Patient Health Record ---
Author Organization Edmundo Esteban III, MD Address [address] [facility] [place] [address] Care Team Providers Care Supervisor Tree Trimming Name Role Phone Jorge Swanson MD Primary Care Provider Unavailab Edmundo Marks Unavailable [phone] Sylwia Joseph MD Unavailable Unavailable Allergies Allergen [...] Problem Status W/U Status Risk Notes Problem 0369200 Former smoker (Z87.891) Active confirmed She is highly motivated not to smoke. She has a plan to prevent relapse in times of stress and illness. Problem 76056298 MS (multiple sclerosis) (G35) Active confirmed She was treated today with 300 mg Tysabri monoclonal antibody therapy without incident. She will return in one month. Problem 109160568 History of depression (Z86.59) Active confirmed She says her depression is well-controll ed and that she is compliant with all of her medications. Problem 322130701 Bipolar 1 disorder (F31.9) Active confirmed This disorder is in long-term remission. Vital Signs Heart Rate 71 /min 11/06/2024 Blood pressure diastolic 47 mm Hg 11/06/2024 Height 60 in 11/06/2024 Blood pressure systolic 80 mm Hg 11/06/2024 Weight 114 lbs 11/06/2024 BMI 22.26 kg/m2 11/06/2024 Encounters Encounter Location Date Provider Diagnosis Edmundo Esteban III, MD [address] [place] [address] [place] [address] 12/12/2023 Edmundo Esteban MS (multiple sclerosis) G35 ; Bipolar 1 disorder F31.9 and History of depression Z86.59 Edmundo Esteban III, MD [address] [place] [address] [place] [address] 01/09/2024 Edmundo Esteban MS (multiple sclerosis) G35 ; Bipolar 1 disorder F31.9 ; History of depression Z86.59 and Former smoker Z87.891 Edmundo Esteban III, MD [address] [place] [address] [place] [address] 02/14/2024 Edmundo Esteban MS (multiple sclerosis) G35 ; Bipolar 1 disorder F31.9 ; History of depression Z86.59 and Former smoker Z87.891 Edmundo Esteban III, MD [address] [place] [address] [place] [address] 03/13/2024 Edmundo Esteban MS (multiple sclerosis) G35 ; Bipolar 1 disorder F31.9 ; Former smoker Z87.891 and History of depression Z86.59 Edmundo Esteban III, MD [address] [place] [address] [place] [address] 04/12/2024 Edmundo Esteban MS (multiple sclerosis) G35 ; Bipolar 1 disorder F31.9 ; History of depression Z86.59 and Former smoker Z87.891 Edmundo Esteban III, MD [address] [place] [address] [place] [address] 05/10/2024 Edmundo Esteban MS (multiple sclerosis) G35 ; Former smoker Z87.891 ; Bipolar 1 disorder F31.9 and History of depression Z86.59 Edmundo Esteban III, MD [address] [place] [address] [place] [address] 06/11/2024 Edmundo Esteban MS (multiple sclerosis) G35 ; Bipolar 1 disorder F31.9 ; History of depression Z86.59 and Former smoker Z87.891 Edmundo Esteban III, MD [address] [place] [address] [place] [address] 07/12/2024 Edmundo Romerone MS (multiple sclerosis) G35 ; Bipolar 1 disorder F31.9 ; History of depression Z86.59 and Former smoker Z87.891 Edmundo Esteban III, MD [address] [place] [address] [place] [address] 08/13/2024 Edmundo Esteban MS (multiple sclerosis) G35 ; Bipolar 1 disorder F31.9 ; History of depression Z86.59 and Former smoker Z87.891 Edmundo Esteban III, MD [address] [place] [address] [place] [address] 10/09/2024 Edmundo Haasrne MS (multiple sclerosis) G35 ; History of depression Z86.59 and Former smoker Z87.891 Edmundo Esteban III, MD [address] [place] [address] [place] [address] 11/06/2024 Edmundo Romerone MS (multiple sclerosis) G35 ; History of depression Z86.59 ; Bipolar 1 disorder F31.9 and Former smoker Z87.891 Edmundo Esteban III, MD [address] [place] [address] [place] [address] 09/11/2024 Edmundo Haasrne MS (multiple sclerosis) G35 ; Bipolar 1 disorder F31.9 ; History of depression Z86.59 and Former smoker Z87.891 Edmundo Esteban III, MD [address] [place] [address] [place] [address] 12/06/2023 Edmundo Esteban Assessments Encounter Date Diagnosis [...] This disorder is in long-term remission. 02/14/2024 MS (multiple sclerosis) (ICD-10 - G35) [...] compliant with all of her medications. 02/14/2024 History of depression (ICD-10 - Z86.59) [...] Treatment Next Appt Details Provider Name:Edmundo Esteban, 12/04/2024 01:00:00 PM, [address] [place] [address] [address], [place], [address], Provider Name:Edmundo Esteban, 01/01/2025 01:00:00 PM, [address] [place] [address] [address], [place], [address], Insurance Providers Payer Name Payer Address Payer Phone Subscriber Number Group Number Insured Name Patient Relationship to Insured Coverage Start Date Coverage End Date MEDICARE NGS [address] [place] [address] [id number] Kanwal Sanches Self - patient is the insured MEDICAID [place] [address] [place] [id number] Kanwal Sanches Self - patient is the insured Medical (General) History Medical History History ICD Code multiple sclerosis bipolar disorder 2 para 2 cigarette smoker history of depression covid19 07/2021 Surgical History Surgery Date(Month/Year) [id number] 2008 Hospitalization History Reason Date(Month/Year) Child 02/2020
--- OUTSIDE RECORDS SUMMARY | 2024-11-21 10:14 | XMS_ITS ---
Author Organization Edmundo Esteban III, MD Address [address] [facility] [address] [place] [address] Care Team Providers Care Power Shovel Mechanic Name Role Phone Jorge Swanson MD Primary Care Provider Unavailab Edmundo Marks Unavailable [phone] Sylwia Joseph MD Unavailable Unavailable Allergies Allergen [...] Date Provider Diagnosis Edmundo Esteban III, MD [address] [place] [address] [place] [address] 11/06/2024 Edmundo Esteban MS (multiple sclerosis) G35 [...] tests Provider Name:Edmundo Esteban, 12/04/2024 01:00:00 PM, [address] [place] [address] [address], [place], [address], Provider Name:Edmundo Esteban, 01/01/2025 01:00:00 PM, [address] [place] [address] [place], [address], Procedure Notes * Category Sub-Category Detail Notes Chemotherapy Start and End Time: start, 1:00 pm, end, 2:00 pm Site: right hand Consent: verbal consent was o btained prior to procedure Medications given: Tysabri 300 mg Monitored by: HAILY Copeland port flush none route IV Progress Notes * Kanwal NGDOB:[birth year] (39 yo F)Acc No.[id number]:11/06/2024 Patient:?Kanwal NG Provider:?Edmundo Esteban MD :1985???Age:39 Y???Sex:Female D ate:11/06/2024 Address:[address] [place], [place] [address] Pcp:Jorge Swanson MD Subjective: * Chief Complaints: [...] is mild.? * Medical History:? * Surgical History:?[id number] 29 03 * Hospitalization/Major Diagno stic Procedure:?Child [...] Tobacco Non-User?Ex-cigarette smoker ???She was born in [place], [place]. 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 [...] mg.?Monitored by:?Lennox Olson ASMA.?port flush?none.?route?IV.? * Procedure Codes:?62372 CHEMO , IV INFUSION, 1 [id number] NATALIZUMAB INJECTION * Preventive Medicine:? ??Counseling:?Smoking/Tobacco Use?Patient counseled on the dangers of tobacco use and urged to quit.?11/06/2024 * Follow Up:?4 Weeks (Reason: Tysabri infusion no tests) * Images: * Sign off status: Completed true * Provider:?Edmundo Esteban MD Date:?10/10 Generated for Sanam leary/Maxx/Zohaibitting on:?11/21/2024 10:14 AM EDT History and Physical [...]
--- OUTSIDE RECORDS SUMMARY | 2024-11-21 10:14 | XMS_ITS ---
Author Organization Edmundo Esteban III, MD Address [address] [place] [address] Care Team Providers Care Natural Resources Extension Educator Name Role Phone Jorge Swanson MD Primary Care Provider Unavailab Edmundo Marks Unavailable [phone] Sylwia Joseph MD Unavailable Unavailable Allergies Allergen [...] Date Provider Diagnosis Edmundo Esteban III, MD [address] [place] [address] [place] [address] 10/09/2024 Edmundo Esteban MS (multiple sclerosis) G35 [...] Infusion Provider Name:Edmundo Esteban, 12/04/2024 01:00:00 PM, [address] [place] [address] [address] [place], [place], [address], Provider Name:Edmundo Esteban, 01/01/2025 01:00:00 PM, [address] [place] [address] [address] [place], [place], [address], Procedure Notes * Category Sub-Category Detail Notes Chemotherapy Start and End Time: start, 1:00 pm, end, 2:00 pm Site: left hand Consent: verbal consent was o btained prior to procedure Medications given: Tysabri 300 mg Monitored by: HAILY Copeland port flush none route IV Progress Notes * Lennox NG:[birth year] (39 yo F)Acc No.[id number]:10/09/2024 Patient:?Kanwal NG Provider:?Edmundo Esteban MD :1985???Age:39 Y???Sex:Female D ate:10/09/2024 Address:[address] [place], [place] [phone] Pcp:Jorge Swanson MD Subjective: * Chief Complaints: [...] pain?denies.?Psychiatric:?Depressed mood?denies.? * Medical History:? * Surgical History:?[id number] 29 03 * Hospitalization/Major Diagno stic Procedure:?Child [...] Tobacco Non-User?Ex-cigarette smoker ???She was born in [place], [place]. 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 * [...] mg.?Monitored by:?Melianet P, ASMA.?port flush?none.?route?IV.? * Procedure Codes:?75596 CHEMO , IV INFUSION, 1 [id number] NATALIZUMAB INJECTION * Preventive Medicine:? ??Counseling:?Smoking/Tobacco Use?Patient counseled on the dangers of tobacco use and urged to quit.?10/09/2024 * Follow Up:?4 Weeks (Reason: Tysabri Infusion) * Images: * Sign off status: Completed true * Provider:?Edmundo Esteban MD Date:?08/2024 Generated for Sanam leary/Maxx/eTransmitting on:?11/21/2024 10:13 AM EDT History and Physical Notes * [...]
== END ==
DX: L72.0 Epidermal cyst (principal)
CPT/HCPCS: 99024

== ENCOUNTER 2024-11-21 10:50 | Outpatient (REF) | payer MEDICARE, MEDICAID, SELFPAY ==
--- NOTE | ~2024-11-21 | US_ITS ---
EXAMINATION: US PELVIS CLINICAL INFORMATION: Adnexal fullness. COMPARISON: None available. TECHNIQUE: Ultrasound of the pelvis is performed using both transabdominal and transvaginal transducers along with Doppler. Transvaginal imaging is performed due to inadequate visualization transabdominally. FINDINGS: Uterus: The uterus is anteverted, anteflexed, and measures 9.0 x 4.5 x 6.1 cm. The cervix has a normal appearance with small nabothian cysts. The double wall endometrial thickness is 5 mm. It is uniform without irregularity. The uterus is smooth in contour and has normal myometrial echogenicity. There is a tiny dorsal mid uterine segment intramural fibroid measuring 1.0 x 0.8 x 0.6 cm. Adnexa: Both ovaries are visualized. There is normal color flow to the adnexa. There is no ovarian torsion. There is no pelvic ascites or fluid collection. Right ovary measures 2.9 x 1.6 x 2.7 cm. Volume = 6.6 mL. Normal sonographic appearance with corpus luteal cyst measuring 1.3 cm. Left ovary measures 3.3 x 1.5 x 2.3 cm. Volume = 6.0 mL. Normal sonographic appearance. US/US pelvic and transvaginal IMPRESSION: 1. Small dorsal mid uterine segment intramural fibroid measuring 1.0 x 0.8 x 0.6 cm. Uterus otherwise normal. 2. Normal endometrium at 5 mm. 3. Normal ovaries bilaterally. No free fluid. Electronically signed by: Desean Landon MD 11/21/2024 12:12 PM EDT
[2024-11-21 11:59] LABS: MANUAL DIFF FLAG NO
[2024-11-21 12:17] LABS: Basophils Absolute Auto 0.1 X10*3/uL (0.0-0.2); Basophils Percent Auto 0.7 % (0-2); Eosinophils Absolute Auto 0.4 X10*3/uL (0.0-0.4); Hematocrit 36.8 % (37.0-47.0); Hemoglobin 12.1 g/dl (12.0-16.0); Imm Gran Abs Auto 0.04 X10*3/uL (0.00-0.03); Imm Gran Pct Auto 0.4 % (0.0-0.4); Lymphocytes Absolute Auto 4.5 X10*3/uL (1.2-4.9); Mean Corpuscular HGB Conc 32.9 g/dl (31.0-35.0); Mean Corpuscular Hemoglobin 29.2 pg (27.0-33.0); Mean Corpuscular Volume 88.7 fL (80.0-98.0); Mean Platelet Volume 9.1 fL (9.4-12.3); Monocytes Absolute Auto 0.5 X10*3/uL (0.1-1.2); Monocytes Percent Auto 5.6 % (2-11); NRBC Pct Auto 0.2 /100WBC (0.0-0.2); Neutrophils Absolute Auto 3.7 x10*3/uL (2.0-8.3); Neutrophils Percent Auto 40.3 % (45-73); Platelet Count 302 X10*3/uL (160-400); Red Blood Count 4.15 X10*6/uL (4.20-5.50); Red Cell Distribution Width 14.1 % (11.0-16.0); White Blood Count 9.2 X10*3/uL (4.8-10.8)
[2024-11-21 12:39] LABS: Anion Gap 13 (12-20); Blood Urea Nitrogen 7 mg/dL (9-16); Carbon Dioxide 22 mmol/L (22-29); Chloride 107 mmol/L (96-108); Estimated Glomerular Filt Rate > 60; Potassium 3.8 mmol/L (3.3-5.1); Sodium 138 mmol/L (135-145)
== END 2024-11-21 10:51 | disposition home or self-care (01) ==
LOC: HO.US 10:50
PROVIDERS: PCP Family Medicine; Visit Provider Obstetrics & Gynecology
DX: N94.9 Unspecified condition associated with female genital organs and menstrual cycle (principal); L72.0 Epidermal cyst
CPT/HCPCS: 36415; 76830; 76856; 80051; 82565; 84520; 85025

== ENCOUNTER → 2024-11-21 10:56 | Outpatient (BNV) | payer MEDICARE, MEDICAID, SELFPAY | PROVIDERS: PCP Family Medicine; Visit Provider Radiology Diagnostic Radiology | DX: R10.2 Pelvic and perineal pain (principal) | CPT/HCPCS: 76830; 76856 ==

== ENCOUNTER 2024-12-09 14:56 | Outpatient (AMB) | payer MEDICARE, MEDICAID, SELFPAY ==
--- NOTE | 2024-12-09 14:56 | MHC.OFFVIS ---
Intake Visit Reasons: Ultrasound follow up Allergies No Known Allergies Allergy (Verified 11/21/24 09:47) HPI Comments Details: The patient scheduled a telehealth visit for ultrasound follow-up regarding adnexal fullness identified on pelvic exam. Pelvic ultrasound done recently showed the following: IMPRESSION: 1. Small dorsal mid uterine segment intramural fibroid measuring 1.0 x 0.8 x 0.6 cm. Uterus otherwise normal. 2. Normal endometrium at 5 mm. 3. Normal ovaries bilaterally. No free fluid. In addition the patient will refer to Dr. Daniel dorsey Gyne Onc for SABINE 3 on 11/14/2022, was scheduled for cold knife cone on 12/06/24, is doing well postoperatively with no complaint no reports available yet [facility] Medical History Bipolar 1 disorder Multiple sclerosis Family History Father Lung cancer Social History Household Members: Spouse and Children Housing: House Alcohol intake: former Patient Tobacco Use Status: Current everyday Tobacco user Tobacco use type: Cigar Cigarettes Per Day: 5 Years Smoked: 13 Current occupational status: disabled Sexual orientation: Straight/Heterosexual Gender identity: Female Female Reproductive History Menstrual Age of Menarche: 12 Review of Systems Const All systems reviewed & are unremarkable except as noted in HPI and below Reports as per HPI and Reports no additional complaints GI Reports no additional complaints Reports no additional complaints Telehealth Telehealth Telehealth Platform: Telephone Location of provider rendering services: practice address Location of patient: address on file Patient Identification confirmed using: Name, : Yes Telehealth method: video Patient verbally consented to treatment: Yes Patient verbally consented to billing insurance company: Yes Patient informed of any privacy concerns related to visit: Yes Minutes spent on Phone/Video with Pt.: 5 Assessment & Plan Assessment & Plan (1) Uterine myoma: Code(s): D25.9 - Leiomyoma of uterus, unspecified Category: Medical Plan: Discussed with the patient the findings on pelvic ultrasound & the risk of myosarcoma; in addition reviewed with the patient that malignancy and pre malignancy cannot be ruled out without hysterectomy for pathological evaluation ; furthermore, explained to the patient the limitation of pelvic ultrasound and endometrial biopsy in the setting. Discussed with the patient the options of treatment including expectant management versus hysterectomy; the pros and cons, risks benefits of each approach were discussed with the patient including the fact that in cases of myosarcoma, surgical treatment can lead to early diagnosis and positively affects the prognosis; after further discussion, the patient decided to proceed with expectant management. Will repeat pelvic ultrasound periodically. Instructions given to patient to call in case any of the following occurs: pressure symptoms, abnormal uterine bleeding, pelvic pain; and to schedule a six-months pelvic ultrasound (order placed) and a follow-up appointment . All questions answered, the patient verbalized understanding and agreed with the plan . I spent a total of 20 minutes reviewing the chart, talking to the patient via video and documenting in the medical record. (2) SABINE III (cervical intraepithelial neoplasia grade III) with severe dysplasia: Comment: Extensive diffuse SABINE 3 in addition to endocervical polyp showing SABINE 2-3 Code(s): D06.9 - Carcinoma in situ of cervix, unspecified Category: Medical Plan: The patient underwent cold knife cone by Dr. Ferrell at [facility] hospitalist physician Oncology. Orders: Orders US pelvic and transvaginal 6 Months D25.9 - Leiomyoma of uterus, unspecified Coding Level of Care Code Tele Est Pt Level 3 (74158) Diagnoses Uterine myoma D25.9 SABINE III (cervical intraepithelial neoplasia grade III) with severe dysplasia D06.9
--- OUTSIDE RECORDS SUMMARY | 2024-12-09 16:12 | XMS_ITS | Patient Health Record ---
Author Organization Edmundo Esteban III, MD Address [address] [place] [address] Care Team Providers Care Pressure Tank Operator Name Role Phone Jorge Swanson MD Primary Care Provider Unavailab Edmundo Marks Unavailable [phone] Sylwia Joseph MD Unavailable Unavailable Allergies Allergen [...] Problem Status W/U Status Risk Notes Problem 1221063 Former smoker (Z87.891) Active confirmed She is highly motivated not to smoke. She has a plan to prevent relapse in times of stress and illness. Problem 93942253 MS (multiple sclerosis) (G35) Active confirmed She was treated today with 300 mg Tysabri monoclonal antibody therapy without incident. She will return in one month. Problem 468629211 History of depression (Z86.59) Active confirmed She says her depression is well-controll ed and that she is compliant with all of her medications. Problem 498207488 Bipolar 1 disorder (F31.9) Active confirmed This disorder is in long-term remission. Vital Signs Heart Rate 71 /min 11/06/2024 Blood pressure diastolic 47 mm Hg 11/06/2024 Height 60 in 11/06/2024 Blood pressure systolic 80 mm Hg 11/06/2024 Weight 114 lbs 11/06/2024 BMI 22.26 kg/m2 11/06/2024 Encounters Encounter Location Date Provider Diagnosis Edmundo Esteban III, MD [address] [place] [address] [place] [address] 12/12/2023 Edmundo Esteban MS (multiple sclerosis) G35 ; Bipolar 1 disorder F31.9 and History of depression Z86.59 Edmundo Esteban III, MD [address] [place] [address] [place] [address] 01/09/2024 Edmundo Esteban MS (multiple sclerosis) G35 ; Bipolar 1 disorder F31.9 ; History of depression Z86.59 and Former smoker Z87.891 Edmundo Esteban III, MD [address] [place] [address] [place] [address] 02/14/2024 Edmundo Esteban MS (multiple sclerosis) G35 ; Bipolar 1 disorder F31.9 ; History of depression Z86.59 and Former smoker Z87.891 Edmundo Esteban III, MD [address] [place] [address] [place] [address] 03/13/2024 Edmundo Esteban MS (multiple sclerosis) G35 ; Bipolar 1 disorder F31.9 ; Former smoker Z87.891 and History of depression Z86.59 Edmundo Esteban III, MD [address] [place] [address] [place] [address] 04/12/2024 Edmundo Esteban MS (multiple sclerosis) G35 ; Bipolar 1 disorder F31.9 ; History of depression Z86.59 and Former smoker Z87.891 Edmundo Esteban III, MD [address] [place] [address] [place] [address] 05/10/2024 Edmundo Esteban MS (multiple sclerosis) G35 ; Former smoker Z87.891 ; Bipolar 1 disorder F31.9 and History of depression Z86.59 Edmundo Esteban III, MD [address] [place] [address] [place] [address] 06/11/2024 Edmundo Esteban MS (multiple sclerosis) G35 ; Bipolar 1 disorder F31.9 ; History of depression Z86.59 and Former smoker Z87.891 Edmundo Esteban III, MD [address] [place] [address] [place] [address] 07/12/2024 Edmundo Esteban MS (multiple sclerosis) G35 ; Bipolar 1 disorder F31.9 ; History of depression Z86.59 and Former smoker Z87.891 Edmundo Esteban III, MD [address] [place] [address] [place] [address] 08/13/2024 Edmundo Esteban MS (multiple sclerosis) G35 ; Bipolar 1 disorder F31.9 ; History of depression Z86.59 and Former smoker Z87.891 Edmundo Esteban III, MD [address] [place] [address] [place] [address] 10/09/2024 Edmundo Esteban MS (multiple sclerosis) G35 ; History of depression Z86.59 and Former smoker Z87.891 Edmundo Esteban III, MD [address] [place] [address] [place] [address] 11/06/2024 Edmundo Esteban MS (multiple sclerosis) G35 ; History of depression Z86.59 ; Bipolar 1 disorder F31.9 and Former smoker Z87.891 Edmundo Esteban III, MD [address] [place] [address] [place] [address] 09/11/2024 Edmundo Esteban MS (multiple sclerosis) G35 [...] Treatment Next Appt Details Provider Name:Edmundo Esteban, 12/13/2024 01:00:00 PM, [address] [place] [address] [address], [place], [address], Insurance Providers Payer Name Payer Address Payer Phone Subscriber Number Group Number Insured Name Patient Relationship to Insured Coverage Start Date Coverage End Date MEDICARE NGS [address] [place] [address] [id number] Kanwal Sanches Self - patient is the insured MED[place] [address] [place], [place] [id number] Kanwal Sanches Self - patient is the insured Medical (General) History Medical History History ICD Code multiple sclerosis bipolar disorder 2 para 2 cigarette smoker history of depression covid19 07/2021 Surgical History Surgery Date(Month/Year) H9P5Tl1 2009 Hospitalization History Reason Date(Month/Year) Child 02/2020
== END 2024-12-09 15:26 | disposition home or self-care (01) ==
LOC: HO.HWS 14:56
PROVIDERS: PCP Family Medicine; Visit Provider Obstetrics & Gynecology
DX: D25.9 Leiomyoma of uterus, unspecified (principal); D06.9 Carcinoma in situ of cervix, unspecified
CPT/HCPCS: 99213

== ENCOUNTER → 2024-12-09 14:56 | Outpatient (BNVA) | payer MEDICARE, MEDICAID, SELFPAY | PROVIDERS: PCP Family Medicine; Visit Provider Obstetrics & Gynecology ==

== ENCOUNTER 2025-01-14 11:00 | Outpatient (AMB) | payer MEDICARE, MEDICAID, SELFPAY ==
--- NOTE | 2025-01-14 11:04 | MHC.OFFVIS ---
Intake Visit Reasons: 3 month f/u Allergies No Known Allergies Allergy (Verified 11/21/24 09:47) Medication List - Last Reconciled 01/14/25 by Sylwia Joseph MD gabapentin 300 mg PO BID natalizumab (Tysabri) mg IV HPI Comments Details: 39 years old woman with the remitting relapsing MS. She was initially seen in 2006 with vertigo, and right sided body, and tongue numbness. An MRI of brain revealed multiple bilateral supra, and infratentorial white matter lesions suggestive of MS. She stopped seeing me, and was following Dr. Sanford. Her MRI of brain in 2009 showed further worsening of MS. She was probably given a medicine by Dr. Sanford that she did not take on regular basis. In 2010 she came back to this office stating that she was getting worse, and wanted to take a medicine. She was initially treated with Betaseron that caused injection site reactions, and it was stopped. She took Copaxone for a few years that was changed to Tecfidera because of worsening MRI findings. . This change was made around 2013. After a year of Tecfidera her MRI in 2015 showed further worsening, and she was advised to take Tysabari that she decided not to do. She opted to go back on Copaxone. An MRI was repeated that revealed further worsening, and she was advised to start Tysabari, which she did in May. At the end of 2017, she stopped taking Tysabari for her plans to have in late 2018, and restarted early 2020. She was doing alright with no active symptoms. Mood was good. Sleep was ok. No new issues. [facility] Medical History (Updated 01/14/25 @ 11:09 by Sylwia Joseph MD) Relapsing remitting multiple sclerosis Bipolar disorder Vitamin D deficiency Bipolar 1 disorder Multiple sclerosis Family History Father Lung cancer Social History Household Members: Spouse and Children Housing: House Alcohol intake: former Patient Tobacco Use Status: Current everyday Tobacco user Tobacco use type: Cigar Cigarettes Per Day: 5 Years Smoked: 13 Current occupational status: disabled Sexual orientation: Straight/Heterosexual Gender identity: Female Female Reproductive History Menstrual Age of Menarche: 12 Review of Systems Const Details: Constitutional:?No fever, chills, fatigue, weight loss, or night sweats. HEENT:?No headache, vision changes, hearing loss, nasal congestion, sore throat. Neurological:?No dizziness, syncope, seizures, numbness, tingling, weakness, tremors, memory loss. Psychiatric:?No anxiety, depression, mood swings, sleep disturbance, or hallucinations. Endocrine:?No heat/cold intolerance, polydipsia, polyuria, or hair/skin changes. Hematologic/Lymphatic:?No easy bruising, bleeding, or lymphadenopathy. Integumentary (Skin):?No rash, lesions, itching, or color changes. ? Physical Exam Neuro Other: Mental Status: Alert and oriented to person, place, and time. Normal attention. Normal spontaneous speech, fluency, and comprehension. No obvious issues with mood and memory. Affect is appropriate. Cranial Nerves: CN II: Visual lacey full to confrontation, visual acuity intact. CN III, IV, : Pupils equal, round, reactive to light and accommodation. Extraocular movements are normal. CN V: Facial sensation is normal. CN VII: Facial movements symmetrical. CN VIII: Hearing intact to bedside conversation is normal. CN IX, X: Palate elevates symmetrically. CN XI: Shoulder shrug and head turn symmetrical. CN XII: Tongue midline without atrophy or fasciculations. Motor: Bulk and tone normal in all extremities. No significant muscle weakness in arms and legs. No drift. Reflexes: Deep tendon reflexes 2+ and symmetric. Plantar response down-going bilaterally. Coordination: Nzxrnu-uk-rtcj and idpj-ug-xngm testing normal. No dysmetria. Gait and Station: No obvious gait abnormality. No ataxia or instability. Sensory: Intact to light touch, pinprick, and vibration. Romberg is negative. Extrapyramidal: Full facial expressions and blinking. No rigidity. Movements are appropriate with no tremor or abnormality. Speech: Normal; no dysarthria or tremor. Assessment & Plan Assessment & Plan (1) Multiple sclerosis: Comment: Meds tried: Betaseron: stopped due to side effects. Copaxone: not effective. Tecfidera: not effective. MRI brain WWO at [facility] in November 2023: Quite significant MS lesions, some with restricted diff but overall, compared to 2020, [place] [facility]: Mild to mod cortical atrophy [place] [facility] [place] [place]: multiple bilateral supra and infra tentorial lesions, many with DWI signal, lesion load 4/5 JCV [place] [facility] [place] [place]:negative, Mar 2018: 0.1, Jun 2018: 0.41, 2019: 1.45, November 2020: 1.17, Mar 2024: 1.67. [place] [facility] [place]: further worsening of MS with many new and many enhancing lesions [place] [facility] [place] Aug 2015: multiple new lesions, some enhancing MRI brain [place] [facility] [place]: significant worsening of lesions compared to 2006 [place] brain [place] [facility] [place] 2010: similar to 2009 [place] brain [place] [facility] [place]: multiple b/l supra and infra tent WM lesion, MS. 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 No complications. Behavioral disorder: Symptoms are much better and control with gabapentin. 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
--- OUTSIDE RECORDS SUMMARY | 2025-01-14 12:05 | XMS_ITS | Patient Health Record ---
Author Organization Edmundo Esteban III, MD Address [address] [place] [address] Care Team Providers Care Bottle Capping Machine Operator Name Role Phone Jorge Swanson MD Primary Care Provider Unavailab Edmundo Marks Unavailable [phone] Sylwia Joseph MD Unavailable Unavailable Allergies Allergen [...] Problem Status W/U Status Risk Notes Problem 4521932 Former smoker (Z87.891) Active confirmed She is highly motivated not to smoke. She has a plan to prevent relapse in times of stress and illness. Problem 82104779 MS (multiple sclerosis) (G35) Active confirmed She was treated today with 300 mg Tysabri monoclonal antibody therapy without incident. She will return in one month. Problem 291863168 History of depression (Z86.59) Active confirmed She says her depression is well-controll ed and that she is compliant with all of her medications. Problem 436614191 Bipolar 1 disorder (F31.9) Active confirmed This disorder is in long-term remission. Vital Signs Heart Rate 79 /min 12/13/2024 Blood pressure diastolic 79 mm Hg 12/13/2024 Height 60 in 12/13/2024 Blood pressure systolic 105 mm Hg 12/13/2024 Weight 116 lbs 12/13/2024 BMI 22.65 kg/m2 12/13/2024 Encounters Encounter Location Date Provider Diagnosis Edmundo Esteban III, MD [address] [place] [address] [place] [address] 02/14/2024 Edmundo Esteban MS (multiple sclerosis) G35 ; Bipolar 1 disorder F31.9 ; History of depression Z86.59 and Former smoker Z87.891 Edmundo Esteban III, MD [address] [place] [address] [place] [address] 03/13/2024 Edmundo Esteban MS (multiple sclerosis) G35 ; Bipolar 1 disorder F31.9 ; Former smoker Z87.891 and History of depression Z86.59 Edmundo Esteban III, MD [address] [place] [address] [place] [address] 04/12/2024 Edmundo Esteban MS (multiple sclerosis) G35 ; Bipolar 1 disorder F31.9 ; History of depression Z86.59 and Former smoker Z87.891 Edmundo Esteban III, MD [address] [place] [address] [place] [address] 05/10/2024 Edmundo Esteban MS (multiple sclerosis) G35 ; Former smoker Z87.891 ; Bipolar 1 disorder F31.9 and History of depression Z86.59 Edmundo Esteban III, MD [address] [place] [address] [place] [address] 06/11/2024 Edmundo Esteban MS (multiple sclerosis) G35 ; Bipolar 1 disorder F31.9 ; History of depression Z86.59 and Former smoker Z87.891 Edmundo Esteban III, MD [address] [place] [address] [place] [address] 07/12/2024 Edmundo Esteban MS (multiple sclerosis) G35 ; Bipolar 1 disorder F31.9 ; History of depression Z86.59 and Former smoker Z87.891 Edmundo Esteban III, MD [address] [place] [address] [place] [address] 08/13/2024 Edmundo Esteban MS (multiple sclerosis) G35 ; Bipolar 1 disorder F31.9 ; History of depression Z86.59 and Former smoker Z87.891 Edmundo Esteban III, MD [address] [place] [address] [place] [address] 10/09/2024 Edmundo Esteban MS (multiple sclerosis) G35 ; History of depression Z86.59 and Former smoker Z87.891 Edmundo Esteban III, MD [address] [place] [address] [place] [address] 11/06/2024 Edmundo Esteban MS (multiple sclerosis) G35 ; History of depression Z86.59 ; Bipolar 1 disorder F31.9 and Former smoker Z87.891 Edmundo Esteban III, MD [address] [place] [address] [place] [address] 09/11/2024 Edmundo Esteban MS (multiple sclerosis) G35 ; Bipolar 1 disorder F31.9 ; History of depression Z86.59 and Former smoker Z87.891 Edmundo Esteban III, MD [address] [place] [address] [place] [address] 12/13/2024 Edmundo Esteban MS (multiple sclerosis) G35 ; History of depression Z86.59 and Former smoker Z87.891 Assessments Encounter Date Diagnosis (ICD Code) Assessment Notes Treatment Notes Treatment Clinical Notes 02/14/2024 MS (multiple sclerosis) (ICD-10 - G35) [...] F31.9) This disorder is in long-term remission. 12/13/2024 MS (multiple sclerosis) (ICD-10 - G35) [...] Treatment Next Appt Details Provider Name:Edmundo Esteban, 01/17/2025 01:00:00 PM, [address] [place] [address] [address], [place], [address], Insurance Providers Payer Name Payer Address Payer Phone Subscriber Number Group Number Insured Name Patient Relationship to Insured Coverage Start Date Coverage End Date MEDICARE NGS [address] [place] [address] [id number] Kanwal Sanches Self - patient is the insured [place] [address] [facility] [place] [id number] Kanwal Sanches Self - patient is the insured Medical (General) History Medical History History ICD Code multiple sclerosis bipolar disorder 2 para 2 cigarette smoker history of depression covid19 07/2021 Surgical History Surgery Date(Month/Year) [id number] 2008 Hospitalization History Reason Date(Month/Year) Child 02/2020
== END 2025-01-14 11:17 | disposition home or self-care (01) ==
LOC: HO.HSM 11:01
PROVIDERS: PCP Family Medicine; Visit Provider Psychiatry & Neurology Neurology
DX: G35 Multiple sclerosis (principal); F07.9 Unspecified personality and behavioral disorder due to known physiological condition
CPT/HCPCS: 99214

== ENCOUNTER 2025-01-14 11:00 | Outpatient (REF) | payer MEDICARE, MEDICAID, SELFPAY ==
[2025-01-14 12:21] LABS: Alanine Aminotransferase 14 U/L (0-31); Albumin Level 4.5 g/dL (3.5-5.0); Alkaline Phosphatase 43 U/L (39-117); Aspartate Amino Transferase 16 U/L (5-31); Total Protein 7.0 g/dL (6.5-8.0)
== END 2025-01-14 11:01 | disposition home or self-care (01) ==
LOC: HO.LAB 11:00
PROVIDERS: PCP Family Medicine; Visit Provider Psychiatry & Neurology Neurology
DX: G35 Multiple sclerosis (principal); F07.9 Unspecified personality and behavioral disorder due to known physiological condition
CPT/HCPCS: 36415; 80076; 99212

== ENCOUNTER 2025-04-15 11:45 | Outpatient (AMB) | payer MEDICARE, MEDICAID, SELFPAY ==
--- OUTSIDE RECORDS SUMMARY | 2025-01-17 09:00 | XMS_ITS ---
Author Organization Edmundo Esteban III, MD Address [address] [place] [address] Care Team Providers Care Lead Material Handler Name Role Phone PasserFelisha Primary Care Provider UnavailDr. Edmundo Stephens III Unavailable Sylwia Joseph MD Unavailable Unavailable Allergies Allergen [...] Additional Findings: Tobacco Non-User Ex-cigaret te smoker Problems Problem Type SNOMED Code ICD Code Onset Dates Problem Status W/U Status Risk Notes Problem Multiple sclerosis (08091008) Multiple sclerosis (G35) Active confirmed Vital Signs Blood pressure systolic 84 mm Hg 01/18/20 25 Blood pressure diastolic 65 mm Hg 025 Heart Rate 74 /min 01/17/2025 Height 60 in 01/17/2025 Weight 115 lbs 01/17/2025 BMI 22.46 kg/m2 01/17/2025 Encounters Encounter Location Date Provider Diagnosis Edmundo Esteban III, MD [address] [place] [address] [place] [address] 01/17/2025 Edmundo Esteban MS (multiple sclerosis) G35 ; Bipolar 1 disorder F31.9 ; History of depression Z86.59 and Former smoker Z87.891 Assessments Encounter Date Diagnosis (ICD Code) Assessment Notes Treatment Notes Treatment Clinical Notes 01/17/2025 MS (multiple sclerosis) (ICD-10 - G35) She was treated today with 300 mg Tysabri monoclonal antibody therapy without incident. She will return in one month. 01/17/2025 Bipolar 1 disorder (ICD-10 - F31.9) This disorder is in long-term remission. 01/17/2025 History of depression (ICD-10 - Z86.59) She says her depression is well-controlled and that she is compliant with all of her medications. 01/17/2025 Former smoker (ICD-10 - Z87.891) She is [...] Weeks, Reason: Tysabri no tests Provider Name:Edmundo Esteban , 05/13/2025 01:00:00 PM, [address] [place] [address] [place], [address], Provider Name:Edmundo Esteban , 06/10/2025 01:00:00 PM, [address] [place] [address] [place], [address], Provider Name:Edmundo Esteban , 07/08/2025 01:00:00 PM, [address] [place] [address] [place], [address], Provider Name:Edmundo Esteban , 08/05/2025 01:00:00 PM, [address] [place] [address] [address], [place], [address], Procedure Notes * Category Sub-Category Detail Notes Chemotherapy Start and End Time: start, 1:00 pm, end, 2:00 pm Site: right hand Consent: verbal consent was o btained prior to procedure Medications given: Tysabri 300 mg Monitored by: HAILY Copeland port flush none route IV Progress Notes * Kanwal NGDOB:[birth year] (39 yo F)Acc No.[id number]:01/17/2025 Patient: Kanwal DIXON Provider: Seven Esteban MD :1985 A ge:39 Y S ex:Female Date:01/17/2025 Address:[address] [place] [id number] Pcp:Jorge Swanson MD Subjective: * Chief Complaints: * T ysabri InfusionMultiple sclerosis * HPI: C OVID-19 Screening: She comes in for another dose of Tysabri monoclonal antibody therapy given as 1 hour IV infusion. There were no contraindications to treatment and she tolerated the infusion well. She will return in 1 month. Questions H ave you had any new [...] of breath d enies. G astrointestinal: Constipation o ccasional. D ecreased appetite d enies. D iarrhea d enies. H eartburn d enies. N ausea d enies. R ectal bleeding d enies. V omiting d enies. H ematology: bruising [...] 1P1Ab0 2008 * Hospitalization/Major Diagno stic Procedure: Boo maldonado 02/2020 * Family History: F ather: 55 [...] x-cigarette smoker S he was born in [place], [place]. 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 * Medications: [...] Objective: * Vitals: H t: 60, Wt: 115, BMI:22.46, BP: 84/65, HR: 74, Wt-k.16. * Examination: G eneral Examination: GENERAL APPEARANCE: [...] will return in one month. 2 . B ipolar 1 disorder - F31.9 N otes :This disorder is in long-term remission. 3 . H istory of depression - Z86.59 N otes :She says her depression is well-controlled and that she is compliant with all of her medications. 4 . F ormer smoker - Z87.891 N otes :She is highly motivated not to smoke. She has a plan to prevent relapse in times of stress and illness. Plan: * Treatment: * Procedures: C hemotherapy: Start and End Time: s tart, 1:00 pm, end, 2:00 pm. Site: [facility]. Consent: v erbal consent was obtained prior to procedure.? Medications given: T ysabri 300 mg. Monitored by: HAILY Waggoner. port flush n one. route I V. * Procedure Codes: 9 6413 CHEMO, IV INFUSION, 1 [id number] NATALIZUMAB INJECTION * Preventive Medicine: Counseling: S moking/Tobacco Use Patient counseled on the dangers of tobacco use and urged to quit. 0 01/17/2025 * Follow Up: 4 Weeks (Reason: Tysabri no tests) * Images: * Sign off status: Completed true * Provider: Seven Esteban MD Date: 0 01/17/2025 Generated for Printi ng/Faxing/eTransmitting on: 1 02:53 PM EDT History and Physical Notes * [...]
--- OUTSIDE RECORDS SUMMARY | 2025-02-14 13:00 | XMS_ITS ---
Author Organization Edmundo Esteban III, MD Address [address] [place] [address] Care Team Providers Care Senior Lead Java Developer Name Role Phone PasserFelisha Primary Care Provider UnavailDr. Edmundo Stephens III Unavailable [phone] Jake GRECO, Sylwia Unavailable Unavailable REASON FOR VISIT Tysabri Infusion Social History Sex Assigned At : Social History Observation Description Sex Assigned At Female Encounters Encounter Location Date Provider Diagnosis Edmundo Esteban III, MD [address] [place] [address] [place] [address] 02/14/2025 Edmundo Esteban Plan Of Treatment Next Appt Details Provider Name:Edmundo Esteban , 05/13/2025 01:00:00 PM, [address] [place] [address] [place], [address], Provider Name:Edmundo Esteban , 06/10/2025 01:00:00 PM, [address] [place] [address] [place], [address], Provider Name:Edmundo Esteban , 07/08/2025 01:00:00 PM, [address] [place] [address] [place], [address], Provider Name:Edmundo Esteban , 08/05/2025 01:00:00 PM, [address] [place] [address] [place], [address], Progress Notes * Kanwal NGDOB:[birth year] (39 yo F)Acc No.[id number]:02/14/2025 Patient: Kanwal DIXON Provider: Seven Esteban MD :1985 A ge:39 Y S ex:Female Date:02/14/2025 Address:[address] [place] [address] Pcp:Felisha Alamo Subjective: * Chief Complaints: * [...] * Provider: Seven Esteban MD Date: 0 02/14/2025 Generated for Sanam leary/Maxx/Zohaibitting on: 02:54 PM EDT
--- OUTSIDE RECORDS SUMMARY | 2025-02-18 09:00 | XMS_ITS ---
Author Organization Edmundo Esteban III, MD Address [address] [place] [address] Care Team Providers Care Cold Press Operator Name Role Phone PasserFelisha Primary Care Provider [...] te smoker Vital Signs Blood pressure systolic 131 mm Hg 02/19/20 25 Blood pressure diastolic 81 mm Hg 025 Heart Rate 65 /min 02/18/2025 Height 60 in 02/18/2025 Weight 115 lbs 02/18/2025 BMI 22.46 kg/m2 02/18/2025 Encounters Encounter Location Date Provider Diagnosis Edmundo Esteban III, MD [address] [place] [address] [place] [address] 02/18/2025 Edmundo Esteban MS (multiple sclerosis) G35 ; History of depression Z86.59 ; Bipolar 1 disorder F31.9 and Former smoker Z87.891 Assessments Encounter Date Diagnosis (ICD Code) Assessment Notes Treatment Notes Treatment Clinical Notes 02/18/2025 MS (multiple sclerosis) (ICD-10 - G35) She was treated today with 300 mg Tysabri monoclonal antibody therapy without incident. She will return in one month. 02/18/2025 History of depression (ICD-10 - Z86.59) She says her depression is well-controlled and that she is compliant with all of her medications. 02/18/2025 Bipolar 1 disorder (ICD-10 - F31.9) This disorder is in long-term remission. 02/18/2025 Former smoker (ICD-10 - Z87.891) She is [...] Provider Name:Edmundo Esteban , 05/13/2025 01:00:00 PM, [address] [place] [address] [place], [address], Provider Name:Edmundo Esteban , 06/10/2025 01:00:00 PM, [address] [place] [address] [place], [address], Provider Name:Edmundo Esteban , 07/08/2025 01:00:00 PM, [address] [facility], [address], Provider Name:Edmundo Esteban , 08/05/2025 01:00:00 PM, [address] [place] [address] [address] [place], [place], [address], Procedure Notes * Category Sub-Category Detail Notes Chemotherapy Start and End Time: start, 1:00 pm, end, 2:00 pm Site: left hand Consent: verbal consent was o btained prior to procedure Medications given: Tysabri 300 mg Monitored by: Lennox Olson ASMRonen route IV Progress Notes * Kanwal NGDOB:[birth year] (39 yo F)Acc No.[id number]:02/18/2025 Patient: Kanwal DIXON Provider: Seven Esteban MD :1985 A ge:39 Y S ex:Female Date:02/18/2025 Address:[address] [place], [place] [phone] Pcp:Felisha Alamo Subjective: * Chief Complaints: * T ysabri Infusion * HPI: C OVID-19 Screening: She returns to the office for another dose of Tysabri monoclonal antibody therapy for chronic relapsing multiple sclerosis. Since her last visit she has been healthy and well. Questions H ave you had any new [...] x-cigarette smoker S he was born in [place], [place]. 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 * Medications: [...] H t: 60, Wt: 115, BMI:22.46, BP: 131/81, HR: 65, Wt-k.16. * Examination: G eneral Examination: GENERAL APPEARANCE: p leasant, well nourished, well developed, in no acute distress, calm and relaxed: woman. HEAD: a traumatic, normocephalic. EYES: e [...] tart, 1:00 pm, end, 2:00 pm. Site: [facility]. Consent: v erbal consent was obtained prior to procedure.? Medications given: T ysabri 300 mg. Monitored by: HAILY Waggoner. route I V. * Procedure Codes: 9 6413 CHEMO, IV INFUSION, 1 [id number] NATALIZUMAB INJECTION * Preventive Medicine: Counseling: S moking/Tobacco Use Patient counseled on the dangers of tobacco use and urged to quit. 0 02/19/2025 * Follow Up: 4 Weeks (Reason: Tysabri no tests) * Images: * Sign off status: Completed true * Provider: Seven Esteban MD Date: 0 02/18/2025 Generated for Printi ng/Faxing/eTransmitting on: 1 02:53 [...] developed, in no acute distress, calm and relaxed: woman HEAD: atraumatic, normocep halic EYES: eomi, [...]
--- OUTSIDE RECORDS SUMMARY | 2025-03-18 09:00 | XMS_ITS ---
Author Organization Edmundo Esteban III, MD Address [address] [place] [address] Care Team Providers Care Boot Trimmer Name Role Phone PasserFelisha Primary Care Provider [...] te smoker Vital Signs Blood pressure systolic 112 mm Hg 03/18/20 25 Blood pressure diastolic 76 mm Hg 025 Heart Rate 75 /min 03/18/2025 Height 60 in 03/18/2025 Weight 117 lbs 03/18/2025 BMI 22.85 kg/m2 03/18/2025 Encounters Encounter Location Date Provider Diagnosis Edmundo Esteban III, MD [address] [place] [address] [place] [address] 03/18/2025 Edmundo Esteban MS (multiple sclerosis) G35 ; Former smoker Z87.891 ; Bipolar 1 disorder F31.9 and History of depression Z86.59 Assessments Encounter Date Diagnosis (ICD Code) Assessment Notes Treatment Notes Treatment Clinical Notes 03/18/2025 MS (multiple sclerosis) (ICD-10 - G35) She was treated today with 300 mg Tysabri monoclonal antibody therapy without incident. She will return in one month. 03/18/2025 Former smoker (ICD-10 - Z87.891) She is highly motivated not to smoke. She has a plan to prevent relapse in times of stress and illness. 03/18/2025 Bipolar 1 disorder (ICD-10 - F31.9) This disorder is in long-term remission. 03/18/2025 History of depression (ICD-10 - Z86.59) She says her depression is well-controlled and that she is compliant with all of her medications. Plan Of Treatment Medication Medication Name Sig Start Date Stop Date Notes Vitamin D 1000 UNIT 1 tablet Orally Once a day Tysabri 300 MG/15ML as directed Intravenous Next Appt Details Follow Up: 4 Weeks, Reason: ov Provider Name:Edmundo Esteban , 05/13/2025 01:00:00 PM, [address] [place] [address] [place], [address], Provider Name:Edmundo Esteban , 06/10/2025 01:00:00 PM, [address] [place] [address] [place], [address], Provider Name:Edmundo Esteban , 07/08/2025 01:00:00 PM, [address] [place] [address] [place], [address], Provider Name:Edmundo Esteban , 08/05/2025 01:00:[address] [place], [address], Procedure Notes * Category Sub-Category Detail Notes Chemotherapy Start and End Time: start, 1:00 pm, end, 2:00 pm Site: right hand Consent: verbal consent was o btained prior to procedure Medications given: Tysabri 300 mg Monitored by: HAILY Copeland port flush none route IV Progress Notes * Kanwal NGDOB:[birth year] (39 yo F)Acc No.[id number]:03/18/2025 Patient: Kanwal DIXON Provider: Seven Esteban MD :1985 A ge:39 Y S ex:Female Date:03/18/2025 Address:[address] [place], [place] [phone] Pcp:Felisha Alamo Subjective: * Chief Complaints: * T ysabri Infusion * HPI: C OVID-19 Screening: She returns for an infusion of Tysabri monoclonal antibody therapy for chronic relapsing multiple sclerosis. She has been well since her last visit. She was treated today without incident. Questions [...] x-cigarette smoker S he was born in [place], [place]. 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 * Medications: [...] Objective: * Vitals: H t: 60, Wt: 117, BMI:22.85, BP: 112/76, HR: 75, Wt-k.07. * Examination: G eneral Examination: GENERAL APPEARANCE: [...] extremities, sensory exam intact. PSYCH: a lert, oriented: cognitive function intact: good eye contact: speech clear: thought process logical, goal directed. Assessment: * Assessment: 1. M S (multiple sclerosis) - G35 (Primary) N otes :She was treated today with 300 mg Tysabri monoclonal antibody therapy without incident. She will return in one month. 2 . F ormer smoker - Z87.891 N otes :She is highly motivated not to smoke. She has a plan to prevent relapse in times of stress and illness. 3 . B ipolar 1 disorder - F31.9 N otes :This disorder is in long-term remission. 4 . H istory of depression - Z86.59 N otes :She says her depression is well-controlled and that she is compliant with all of her medications. Plan: * Treatment: * Procedures: C hemotherapy: Start and End Time: s tart, 1:00 pm, end, 2:00 pm. Site: [facility]. Consent: vj lovellal consent was obtained prior to procedure.? Medications given: T ysabri 300 mg. Monitored by: HAILY Waggoner. port flush n one. route I V. * Procedure Codes: 9 6413 CHEMO, IV INFUSION, 1 [id number] NATALIZUMAB INJECTION * Preventive Medicine: Counseling: S moking/Tobacco Use Patient counseled on the dangers of tobacco use and urged to quit. 0 03/18/2025 * Follow Up: 4 Weeks (Reason: ov) * Images: * Sign off status: Completed true * Provider: Seven Esteban MD Date: 0 03/18/2025 Generated for Sui ng/Bolag/eTransmitting on: 1 02:53 PM EDT History and [...] normal RECTAL EXAM: not examined PSYCH: alert, oriented: cog nitive function intact: good eye contact: speech clear: thought process logical, goal directed ORAL CAVITY: normal, unremarkable
--- OUTSIDE RECORDS SUMMARY | 2025-04-15 09:00 | XMS_ITS ---
Author Organization Edmundo Esteban III, MD Address [address] [place] [address] [place] [address] Care Team Providers Care Spanisher Name Role Phone PasserFelisha Primary Care Provider [...] Signs Blood pressure systolic 136 mm Hg 04/15/20 25 Blood pressure diastolic 84 mm Hg 025 Heart Rate 79 /min 04/15/2025 Height 60 in 04/15/2025 Weight 119 lbs 04/15/2025 BMI 23.24 kg/m2 04/15/2025 Encounters Encounter Location Date Provider Diagnosis Edmundo Esteban III, MD [address] [place] [address] [place] [address] 04/15/2025 Edmundo Esteban MS (multiple sclerosis) G35 [...] Provider Name:Edmundo Esteban , 05/13/2025 01:00:00 PM, [address] [place] [address] [address], [place], [address], Provider Name:Edmundo Esteban , 06/10/2025 01:00:00 PM, [address] [place] [address] [place], [address], Provider Name:Edmundo Esteban , 07/08/2025 01:00:00 PM, [address] [place] [address] [place], [address], Provider Name:Edmundo Esteban , 08/05/2025 01:00:00 PM, [address] [place] [address] [place], [address], Procedure Notes * Category Sub-Category Detail Notes Chemotherapy Start and End Time: start, 1:00 pm, end, 2:00 pm Site: right hand Consent: verbal consent was o btained prior to procedure Medications given: Tysabri 300 mg Monitored by: HAILY Copeland route IV Progress Notes * Kanwal NGDOB:[birth year] (39 yo F)Acc No.[id number]:04/15/2025 Patient: Kanwal DIXON Provider: Seven Esteban MD :1985 A ge:39 Y S ex:Female Date:04/15/2025 Address:[address] [place] [phone] Pcp:Felisha Alamo Subjective: * Chief Complaints: * [...] x-cigarette smoker S he was born in [place], [place]. 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 * [...] tart, 1:00 pm, end, 2:00 pm. Site: [facility]. Consent: v erbal consent was obtained prior to procedure.? Medications given: T ysabri 300 mg. Monitored by: HAILY Waggoenr. route I V. * Procedure Codes: 9 6413 CHEMO, IV INFUSION, 1 [id number] NATALIZUMAB INJECTION * Preventive Medicine: Counseling: S moking/Tobacco Use Patient counseled on the dangers of tobacco use and urged to quit. 1 * Follow Up: 4 Weeks,Tysabri infusion (Reason: Tysabri infusion no tests) * Images: * Sign off status: Completed true * Provider: Seven Esteban MD Date: Generated for Sanam leary/Maxx/Martine on: 02:53 PM EDT History and Physical Notes * Examination [...]
--- NOTE | 2025-04-15 12:07 | MHC.OFFVIS ---
Intake Visit Reasons: 3M MS Allergies No Known Allergies Allergy (Verified 11/21/24 09:47) HPI Comments Details: 39 years old woman with the remitting relapsing MS. She was initially seen in 2006 with vertigo, and right sided body, and tongue numbness. An MRI of brain revealed multiple bilateral supra, and infratentorial white matter lesions suggestive of MS. She stopped seeing me, and was following Dr. Sanford. Her MRI of brain in 2009 showed further worsening of MS. She was probably given a medicine by Dr. Sanford that she did not take on regular basis. In 2010 she came back to this office stating that she was getting worse, and wanted to take a medicine. She was initially treated with Betaseron that caused injection site reactions, and it was stopped. She took Copaxone for a few years that was changed to Tecfidera because of worsening MRI findings. . This change was made around 2013. After a year of Tecfidera her MRI in 2015 showed further worsening, and she was advised to take Tysabari that she decided not to do. She opted to go back on Copaxone. An MRI was repeated that revealed further worsening, and she was advised to start Tysabari, which she did in May. At the end of 2017, she stopped taking Tysabari for her plans to have in late 2018, and restarted early 2020. She is presenting with follow-up for multiple sclerosis. Since her initial presentation in 2018, she has been maintained on Tysabri (natalizumab) and her condition has been stable with no reported acute exacerbations. 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 Her mood, energy level, and bladder control remain good, and no new neurological symptoms have been reported. Her most recent JONE virus titer was high, a finding which has been previously noted in her history. [facility] Medical History (Updated 04/15/25 @ 12:11 by Sylwia Joseph MD) Cigarette smoker MDD (major depressive disorder), recurrent, in partial remission Anxiety Relapsing remitting multiple sclerosis Bipolar disorder Vitamin D deficiency Bipolar 1 disorder Multiple sclerosis Family History (Updated 03/20/25 @ 11:10 by Maria Rueda MA) Father Lung cancer Mother No problems noted. Social History Household Members: Spouse and Children Housing: House Alcohol intake: former Patient Tobacco Use Status: Current everyday Tobacco user Tobacco use type: Cigar Cigarettes Per Day: 5 Years Smoked: 13 e-Cigarette/Vaping Use: Currently Using service: No Current occupational status: disabled Sexual orientation: Straight/Heterosexual Gender identity: Female Cognitive needs: No Hearing needs: No Vision needs: Yes (Reading glasses) Female Reproductive History Menstrual Age of Menarche: 12 Review of Systems Const Details: - Neurologic: Denies new symptoms; reports stability in mood and energy levels. - Genitourinary: Denies issues with bladder control. Physical Exam Neuro Other: Mental Status: Alert and oriented to person, place, and time. Normal attention. Normal spontaneous speech, fluency, and comprehension. No obvious issues with mood and memory. Affect is appropriate. Cranial Nerves: CN II: Visual lacey full to confrontation, visual acuity intact. CN III, IV, : Pupils equal, round, reactive to light and accommodation. Extraocular movements are normal. CN V: Facial sensation is normal. CN VII: Facial movements symmetrical. CN VIII: Hearing intact to bedside conversation is normal. CN IX, X: Palate elevates symmetrically. CN XI: Shoulder shrug and head turn symmetrical. CN XII: Tongue midline without atrophy or fasciculations. Motor: Bulk and tone normal in all extremities. No significant muscle weakness in arms and legs. No drift. Reflexes: Deep tendon reflexes 2+ and symmetric. Plantar response down-going bilaterally. Coordination: Wgvvzk-cw-kflg and wkfz-df-klvr testing normal. No dysmetria. Gait and Station: No obvious gait abnormality. No ataxia or instability. Extrapyramidal: Full facial expressions and blinking. No rigidity. Movements are appropriate with no tremor or abnormality. Speech: Normal; no dysarthria or tremor. Assessment & Plan Assessment & Plan (1) Multiple sclerosis: Comment: Meds tried: Betaseron: stopped due to side effects. Copaxone: not effective. Tecfidera: not effective. JCV titer at [facility] in May 2016:negative, Mar 2018: 0.1, Jun 2018: 0.41, 2019: 1.45, November 2020: 1.17, Mar 2024: 1.67. MRI brain [facility]WO at [facility] in November 2023: Quite significant MS lesions, some with restricted diff but overall, compared to 2020, better CT brain WO at [facility] in November 2023: Mild to mod cortical atrophy MRI brain WO at [facility] in Jul 2020: multiple bilateral supra and infra tentorial lesions, many with DWI signal, lesion load 4/5 MRI brain WWO at [facility] in Apr 2016: further worsening of MS with many new and many enhancing lesions MRI brain WWO at [facility] in Aug 2015: multiple new lesions, some enhancing MRI brain WO at [facility] in 2009: significant worsening of lesions compared to 2006 MRI brain WO at [facility] in 2010: similar to 2009 MRI brain WO at [facility] in 2006: multiple b/l supra and infra tent WM lesion, MS. 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 We explored the implications of elevated JONE titers and discussed the usual practice of monitoring these levels. I explained that the final clinical decisions, including continuation of current medication and timing of monitoring, depend on the results of these titers. The patient is to return for follow-up in three months, aligning with scheduled monitoring of JONE virus antibody titers and continued management of her multiple sclerosis. 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
--- OUTSIDE RECORDS SUMMARY | 2025-04-15 14:54 | XMS_ITS | Patient Health Record ---
Author Organization Edmundo Esteban III, MD Address [address] [place] [address] [address] [place] [address] Care Team Providers Care Boiler Washer Name Role Phone PasserFelisha Primary Care Provider UnavailDr. Edmundo Stephens III Unavailable [phone] Sylwia Joseph MD Unavailable Unavailable Allergies Allergen [...] Problem Status W/U Status Risk Notes Problem 0064414 Former smoker (Z87.891) Active confirmed She is highly motivated not to smoke. She has a plan to prevent relapse in times of stress and illness. Problem Multiple sclerosis (55095743) Multiple sclerosis (G35) Active confirmed Problem 35198898 MS (multiple sclerosis) (G35) Active confirmed She was treated today with 300 mg Tysabri monoclonal antibody therapy without incident. She will return in one month. Problem 359922685 History of depression (Z86.59) Active confirmed She says her depression is well-controll ed and that she is compliant with all of her medications. Problem 883134758 Bipolar 1 disorder (F31.9) Active confirmed This disorder is in long-term remission. Vital Signs Heart Rate 79 /min 04/15/2025 Blood pressure diastolic 84 mm Hg 04/15/2025 Height 60 in 04/15/2025 Blood pressure systolic 136 mm Hg 04/15/2025 Weight 119 lbs 04/15/2025 BMI 23.24 kg/m2 04/15/2025 Encounters Encounter Location Date Provider Diagnosis Edmundo Esteban III, MD [address] [place] [address] [place] [address] 05/10/2024 Edmundo Esteban MS (multiple sclerosis) G35 ; Former smoker Z87.891 ; Bipolar 1 disorder F31.9 and History of depression Z86.59 Edmundo Esteban III, MD [address] [place] [address] [place] [address] 06/11/2024 Edmundo Esteban MS (multiple sclerosis) G35 ; Bipolar 1 disorder F31.9 ; History of depression Z86.59 and Former smoker Z87.891 Edmundo Esteban III, MD [address] [place] [address] [place] [address] 07/12/2024 Edmundo Esteban MS (multiple sclerosis) G35 ; Bipolar 1 disorder F31.9 ; History of depression Z86.59 and Former smoker Z87.891 Edmundo Esteban III, MD [address] [place] [address] [place] [address] 08/13/2024 Edmundo Esteban MS (multiple sclerosis) G35 ; Bipolar 1 disorder F31.9 ; History of depression Z86.59 and Former smoker Z87.891 Edmundo Esteban III, MD [address] [place] [address] [place] [address] 10/09/2024 Edmundo Carlito MS (multiple sclerosis) G35 ; History of depression Z86.59 and Former smoker Z87.891 Edmundo Esteban III, MD [address] [place] [address] [place] [address] 11/06/2024 Edmundo Haasrne MS (multiple sclerosis) G35 ; History of depression Z86.59 ; Bipolar 1 disorder F31.9 and Former smoker Z87.891 Edmundo Esteban III, MD [address] [place] [address] [place] [address] 09/11/2024 Edmundo Haasrne MS (multiple sclerosis) G35 ; Bipolar 1 disorder F31.9 ; History of depression Z86.59 and Former smoker Z87.891 Edmundo Esteban III, MD [address] [place] [address] [place] [address] 12/13/2024 Edmundo Carlito MS (multiple sclerosis) G35 ; History of depression Z86.59 and Former smoker Z87.891 Edmundo Esteban III, MD [address] [place] [address] [place] [address] 01/17/2025 Edmundo Carlito MS (multiple sclerosis) G35 ; Bipolar 1 disorder F31.9 ; History of depression Z86.59 and Former smoker Z87.891 Edmundo Esteban III, MD [address] [place] [address] [place] [address] 02/18/2025 Edmundo Carlito MS (multiple sclerosis) G35 ; History of depression Z86.59 ; Bipolar 1 disorder F31.9 and Former smoker Z87.891 Edmundo Esteban III, MD [address] [place] [address] [place] [address] 03/18/2025 Edmundo Esteban MS (multiple sclerosis) G35 ; Former smoker Z87.891 ; Bipolar 1 disorder F31.9 and History of depression Z86.59 Edmundo Esteban III, MD [address] [place] [address] [place] [address] 04/15/2025 Edmundo Esteban MS (multiple sclerosis) G35 ; History of depression Z86.59 and Former smoker Z87.891 Assessments Encounter Date Diagnosis (ICD Code) Assessment Notes Treatment Notes Treatment Clinical Notes 05/10/2024 Former smoker (ICD-10 - Z87.891) She [...] compliant with all of her medications. 01/17/2025 MS (multiple sclerosis) (ICD-10 - G35) She was treated today with 300 mg Tysabri monoclonal antibody therapy without incident. She will return in one month. 01/17/2025 Bipolar 1 disorder (ICD-10 - F31.9) This disorder is in long-term remission. 02/18/2025 MS (multiple sclerosis) (ICD-10 - G35) She was treated today with 300 mg Tysabri monoclonal antibody therapy without incident. She will return in one month. 02/18/2025 History of depression (ICD-10 - Z86.59) She says her depression is well-controlled and that she is compliant with all of her medications. 03/18/2025 Former smoker (ICD-10 - Z87.891) She is highly motivated not to smoke. She has a plan to prevent relapse in times of stress and illness. 03/18/2025 MS (multiple sclerosis) (ICD-10 - G35) She was treated today with 300 mg Tysabri monoclonal antibody therapy without incident. She will return in one month. 04/15/2025 MS (multiple sclerosis) (ICD-10 - G35) [...] relapse in times of stress and illness. 01/17/2025 History of depression (ICD-10 - Z86.59) She says her depression is well-controlled and that she is compliant with all of her medications. 02/18/2025 Bipolar 1 disorder (ICD-10 - F31.9) This disorder is in long-term remission. 03/18/2025 Bipolar 1 disorder (ICD-10 - F31.9) This disorder is in long-term remission. 04/15/2025 Former smoker (ICD-10 - Z87.891) She [...] relapse in times of stress and illness. 01/17/2025 Former smoker (ICD-10 - Z87.891) She is highly motivated not to smoke. She has a plan to prevent relapse in times of stress and illness. 02/18/2025 Former smoker (ICD-10 - Z87.891) She is highly motivated not to smoke. She has a plan to prevent relapse in times of stress and illness. 03/18/2025 History of depression (ICD-10 - Z86.59) She says her depression is well-controlled and that she is compliant with all of her medications. Plan Of Treatment Next Appt Details Provider Name:Edmundo Esteban , 05/13/2025 01:00:00 PM, [address] [place] [address] [place], [address], Provider Name:Edmundo Esteban , 06/10/2025 01:00:00 PM, [address] [place] [address] [place], [address], Provider Name:Edmundo Esteban , 07/08/2025 01:00:00 PM, [address] [place] [address] [place], [address], Provider Name:Edmundo Esteban , 08/05/2025 01:00:00 PM, [facility], [address], Insurance Providers Payer Name Payer Address Payer Phone Subscriber Number Group Number Insured Name Patient Relationship to Insured Coverage Start Date Coverage End Date MEDICARE NGS [address] [place] [address] [id number] Kanwal Sanches Self - patient is the insured MEDICAID [facility] [address] [place] [id number] [phone] [id number] Kanwal Sanches Self - patient is the insured Medical (General) History Medical History History ICD Code multiple sclerosis bipolar disorder 2 para 2 cigarette smoker history of depression [id number] 07/2021 Surgical History Surgery Date(Month/Year) [id number] 2008 Hospitalization History Reason Date(Month/Year) Child 02/2020
== END 2025-04-15 12:16 | disposition home or self-care (01) ==
LOC: HO.HSM 11:46
PROVIDERS: PCP Family Medicine; Visit Provider Psychiatry & Neurology Neurology
DX: G35.A Relapsing-remitting multiple sclerosis (principal); F07.9 Unspecified personality and behavioral disorder due to known physiological condition
CPT/HCPCS: 99214

== ENCOUNTER 2025-04-15 11:45 | Outpatient (REF) | payer MEDICARE, MEDICAID, SELFPAY | END 2025-04-15 11:46 | disposition home or self-care (01) | LOC: HO.LAB 11:45 | PROVIDERS: PCP Physician Assistant Medical; Visit Provider Psychiatry & Neurology Neurology | DX: G35.D Multiple sclerosis, unspecified (principal); F07.9 Unspecified personality and behavioral disorder due to known physiological condition; Z79.69 Long term (current) use of other immunomodulators and immunosuppressants | CPT/HCPCS: 99212 ==

== ENCOUNTER 2025-04-28 11:16 | Outpatient (REF) | payer MEDICARE, MEDICAID, SELFPAY ==
[2025-04-28 12:22] LABS: Alanine Aminotransferase 14 U/L (0-31); Albumin Level 4.8 g/dL (3.5-5.0); Alkaline Phosphatase 56 U/L (39-117); Aspartate Amino Transferase 16 U/L (5-31); Total Protein 7.6 g/dL (6.5-8.0)
[2025-05-01 23:09] LABS: JCV Index Value 1.89 index
== END 2025-04-28 11:17 | disposition home or self-care (01) ==
LOC: HO.LAB 11:16
PROVIDERS: PCP Physician Assistant Medical; Visit Provider Psychiatry & Neurology Neurology
DX: G35.D Multiple sclerosis, unspecified (principal)
CPT/HCPCS: 36415; 80076; 86711

== ENCOUNTER 2025-05-05 09:36 | Outpatient (REF) | payer MEDICARE, MEDICAID, SELFPAY ==
--- OUTSIDE RECORDS SUMMARY | 2024-10-09 09:00 | XMS_ITS ---
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 Edmundo Esteban III Unavailable [phone] Allergies Allergen (clinical drug ingredient) Drug/Non Drug Allergy documented on EMR Reaction Allergy Type Onset Date Status No Known Drug Allergy Unknown Drug Allergy Active REASON FOR VISIT Tysabri Infusion Medications Medication SIG (Take, Route, Fr equency, Duration) Notes Start Date End Date Status Vitamin D 1000 UNIT 1 tablet Orally Once a day Active Tysabri 300 MG/15ML as directed Intravenous Active Social History Tobacco Use: Social History Observation Description Date Details (start date - stop date) Former Smoker NA - NA Sex Assigned At : Social History Observation Description Sex Assigned At Female Tobacco Use/Smoking Question Answer Notes Patient is a former smoker How long has it been since y ou last smoked? 3-6 months Additional Findings: Tobacco User Light cigarett e smoker ((1-9 cigs/day) Additional Findings: Tobacco Non-User Ex-cigaret te smoker Vital Signs Blood pressure systolic 109 mm Hg 10/10/19 25 Blood pressure diastolic 81 mm Hg 025 Heart Rate 83 /min 10/09/2024 Height 60 in 10/09/2024 Weight 114 lbs 10/09/2024 BMI 22.26 kg/m2 10/09/2024 Encounters Encounter Location Date Provider Diagnosis Edmundo Esteban III, MD [address] [place] [address] [place] [address] 10/09/2024 Edmundo Esteban MS (multiple sclerosis) G35 ; History of depression Z86.59 and Former smoker Z87.891 Assessments Encounter Date Diagnosis (ICD Code) Assessment Notes Treatment Notes Treatment Clinical Notes 10/09/2024 MS (multiple sclerosis) (ICD-10 - G35) She was treated today with 300 mg Tysabri monoclonal antibody therapy without incident. She will return in one month. 10/09/2024 History of depression (ICD-10 - Z86.59) She says her depression is well-controlled and that she is compliant with all of her medications. 10/09/2024 Former smoker (ICD-10 - Z87.891) She is highly motivated not to smoke. She has a plan to prevent relapse in times of stress and illness. Plan Of Treatment Medication Medication Name Sig Start Date Stop Date Notes Vitamin D 1000 UNIT 1 tablet Orally Once a day Tysabri 300 MG/15ML as directed Intravenous Next Appt Details Follow Up: 4 Weeks, Reason: Tysabri Infusion Provider Name:Edmundo Esteban , 05/13/2025 01:00:00 PM, [address] [place] [address] [place], [phone], Provider Name:Edmundo Esteban , 06/10/2025 01:00:00 PM, [address] [place] [address] [place], [phone], Provider Name:Edmundo Esteban , 07/08/2025 01:00:00 PM, [address] [place] [address] [place], [address], Provider Name:Edmundo Esteban , 08/05/2025 01:00:00 PM, [address] [place] [address] [place], [phone], Procedure Notes * Category Sub-Category Detail Notes Chemotherapy Start and End Time: start, 1:00 pm, end, 2:00 pm Site: left hand Consent: verbal consent was o btained prior to procedure Medications given: Tysabri 300 mg Monitored by: HAILY Copeland port flush none route IV Progress Notes * Kanwal NGDOB:[birth year] (39 yo F)Acc No.[id number]:10/09/2024 Patient: Kanwal DIXON Provider: Seven Esteban MD :1985 A ge:39 Y S ex:Female Date:10/09/2024 Address:[address] [place] [id number] Pcp:Jorge Swanson MD Subjective: * Chief Complaints: * T ysabri Infusion * HPI: C OVID-19 Screening: She returns for another scheduled dose of Tysabri monoclonal antibody therapy for chronic relapsing multiple sclerosis. Since her last visit she has been healthy and well. She was treated today without incident. Questions H ave you had any new onset fever, chills, cough, congestion, sore throat, shortness of breath, muscle aches? N o * ROS: G eneral/Constitutional: pain o nly normal aches and pains. C hills d enies.?Fatigue a dmits. F ever d enies. E NT: Decreased hearing d enies. R espiratory: Cough d enies. C ardiovascular: Chest pain with exertion d enies. D yspnea on exertion?denies. S hortness of breath d enies. G astrointestinal: Constipation d enies. D ecreased appetite d enies.?Diarrhea d enies. H eartburn d enies. N ausea d enies. R ectal bleeding?denies. V omiting d enies. H ematology: bruising d enies. p etechiae d enies. S wollen glands n one have been noted. G enitourinary: Frequent urination a t night. M usculoskeletal: Muscle aches d enies. P ainful joints d enies. S ciatica d enies. W eakness d enies. S kin: Itching d enies. R dorian d enies. S kin lesion(s)?denies. N eurologic: Difficulty speaking d enies. D izziness d enies.?Headache d enies. L ow back pain d enies. P sychiatric: Depressed mood d enies. * Medical History: * Surgical History: G 1P1Ab0 2008 * Hospitalization/Major Diagno stic Procedure: C hild 02/2020 * Family History: F ather: 55 yrs, lung cancer, diagnosed with Cancer. M other: alive 56 yrs, alive and well. 1 brother(s) - healthy. 2 daughter(s) - healthy. . Her brother has had ureterolithiasis. Her daughter, Marjorie, is 7 ands well. A maternal grandmother may have had breast cancer. She is not aware of any family history of mental illness or substance use disorder or addiction. * Social History: T obacco Use: T obacco Use/Smoking P atient is a f ormer smoker H ow long has it been since you last smoked??3-6 months A dditional Findings: Tobacco User L ight cigarette smoker ((1-9 cigs/day) A dditional Findings: Tobacco Non-User E x-cigarette smoker S he was born in [place], [place]. 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 * Medications: T akingVitamin D 1000 UNIT Tablet 1 tablet Orally Once a day Tysabri 300 MG/15ML Concentrate as directed Intravenous Medication List reviewed and reconciled with the patientTaking Vitamin D 1000 UNIT Tablet 1 tablet Orally Once a day Taking Tysabri 300 MG/15ML Concentrate as directed Intravenous Medication List reviewed and reconciled with the patient * Allergies: N o Known Drug Allergyno[Allergies Verified] Objective: * Vitals: H t: 60, Wt: 114, BMI:22.26, BP: 109/81, HR: 83, Wt-k.71. * Examination: G eneral Examination: GENERAL APPEARANCE: p leasant, well nourished, well developed, in no acute distress, calm and relaxed, woman. HEAD: a traumatic, normocephalic. EYES: e eliza, perrla, anicteric, conjugate. EARS: n ormal. NOSE: s eptum intact. ORAL CAVITY: n ormal, unremarkable. NECK/THYROID: n o jugular venous distention, no carotid bruit, thyroid normal. LYMPH NODES: n o enlarged lymph nodes,spleen normal. SKIN: n o suspicious lesions, anicteric. HEART: n o clicks, gallops, murmurs, or rubs, regular rhythm, S1, S2 normal, no s3, or vascular bruits. LUNGS: c lear to auscultation . BREASTS: N ot examined. ABDOMEN: b owel sounds normal, no ascites, no organomegaly, no mass. RECTAL EXAM: n ot examined. MUSCULOSKELETAL: e xtremities unremarkable, no clubbing, cyanosis or edema. PERIPHERAL PULSES: n ormal. NEUROLOGIC: a lert and oriented, cranial nerves 2-12 grossly intact, deep tendon reflexes 2+ symmetrical, motor strength normal upper and lower extremities, sensory exam intact. PSYCH: a lert, oriented. Assessment: * Assessment: 1. M S (multiple sclerosis) - G35 (Primary) N otes :She was treated today with 300 mg Tysabri monoclonal antibody therapy without incident. She will return in one month. 2 . H istory of depression - Z86.59 N otes :She says her depression is well-controlled and that she is compliant with all of her medications. 3 . F ormer smoker - Z87.891 N otes :She is highly motivated not to smoke. She has a plan to prevent relapse in times of stress and illness. Plan: * Treatment: * Procedures: C hemotherapy: Start and End Time: s tart, 1:00 pm, end, 2:00 pm. Site: [facility]. Consent: v erbal consent was obtained prior to procedure.? Medications given: T ysabri 300 mg. Monitored by: HAILY Waggoner. port flush n one. route I V. * Procedure Codes: 9 6413 CHEMO, IV INFUSION, 1 [id number] NATALIZUMAB INJECTION * Preventive Medicine: Counseling: S moking/Tobacco Use Patient counseled on the dangers of tobacco use and urged to quit. 0 10/09/2024 * Follow Up: 4 Weeks (Reason: Tysabri Infusion) * Images: * Sign off status: Completed true * Provider: Seven Esteban MD Date: 0 10/09/2024 Generated for Sanam leary/Maxx/Martine on: 10:53 AM EDT History and Physical Notes * HPI (History of Present Illness) Category Sub-Category Detail Notes COVID-19 Screening Questions Have you had any new onset fever, chills, cough, congestion, sore throat, shortness of breath, muscle aches?: No Examination Category Sub-Category Detail Notes General Examination GENERAL APPEARANCE: pleasant , well nourished, well developed, in no acute distress, calm and relaxed, woman HEAD: atraumatic, normocep halic EYES: eomi, perrla, anicte matti, conjugate EARS: normal NOSE: septum intact NECK/THYROID: no jugular venous di stention, no carotid bruit, thyroid normal HEART: no clicks, gallops, murmurs, or rubs, regular rhythm, S1, S2 normal, no s3, or vascular bruits LUNGS: clear to auscultatio n ABDOMEN: bowel sounds normal, no ascites, no organomegaly, no mass NEUROLOGIC: alert and oriented, cranial nerves 2-12 grossly intact, deep tendon reflexes 2+ symmetrical, motor strength normal upper and lower extremities, sensory exam intact SKIN: no suspicious lesion s, anicteric PERIPHERAL PULSES: normal BREASTS: Not examined MUSCULOSKELETAL: extremities unremark able, no clubbing, cyanosis or edema LYMPH NODES: no enlarged lymph no james,spleen normal RECTAL EXAM: not examined PSYCH: alert, oriented ORAL CAVITY: normal, unremarkable
--- OUTSIDE RECORDS SUMMARY | 2024-11-06 09:00 | XMS_ITS ---
Author Organization Edmundo Esteban III, MD Address [address] [address] Care Team Providers Care Air Brake Adjuster Name Role Phone PasserFelisha Primary Care Provider UnavailEdmundo Stephens III Unavailable [phone] Sylwia Joseph MD Unavailable Unavailable Dr. Edmundo Esteban III Unavailable Allergies Allergen (clinical drug ingredient) Drug/Non Drug Allergy documented on EMR Reaction Allergy Type Onset Date Status No Known Drug Allergy Unknown Drug Allergy Active REASON FOR VISIT Tysabri Infusion, Multiple sclerosis Medications Medication SIG (Take, Route, Fr equency, [...] te smoker Vital Signs Blood pressure systolic 80 mm Hg 11/07/19 25 Blood pressure diastolic 47 mm Hg 025 Heart Rate 71 /min 11/06/2024 Height 60 in 11/06/2024 Weight 114 lbs 11/06/2024 BMI 22.26 kg/m2 11/06/2024 Encounters Encounter Location Date Provider Diagnosis Edmundo Esteban III, MD [address] [place] [address] [place] [address] 11/06/2024 Edmundo Esteban MS (multiple sclerosis) G35 ; History of depression Z86.59 ; Bipolar 1 disorder F31.9 and Former smoker Z87.891 Assessments Encounter Date Diagnosis (ICD Code) Assessment Notes Treatment Notes Treatment Clinical Notes 11/06/2024 MS (multiple sclerosis) (ICD-10 - G35) She was treated today with 300 mg Tysabri monoclonal antibody therapy without incident. She will return in one month. 11/06/2024 History of depression (ICD-10 - Z86.59) She says her depression is well-controlled and that she is compliant with all of her medications. 11/06/2024 Bipolar 1 disorder (ICD-10 - F31.9) This disorder is in long-term remission. 11/06/2024 Former smoker (ICD-10 - Z87.891) She is [...] Reason: Tysabri infusion no tests Provider Name:Edmundo Esteban , 05/13/2025 01:00:00 PM, [address] [place] [address] [place], [address], Provider Name:Edmundo Esteban , 06/10/2025 01:00:00 PM, [address] [place] [address] [place], [address], Provider Name:Edmundo Esteban , 07/08/2025 01:00:00 PM, [address] [place] [address] [place], [address], Provider Name:Edmundo Esteban , 08/05/2025 01:00:00 PM, [address] [place] [address] [address], [place], [address], Procedure Notes * Category Sub-Category Detail Notes Chemotherapy Start and End Time: start, 1:00 pm, end, 2:00 pm Site: right hand Consent: verbal consent was o btained prior to procedure Medications given: Tysabri 300 mg Monitored by: HAILY Copeland port flush none route IV Progress Notes * Kanwal NGDOB:[birth year] (39 yo F)Acc No.[id number]:11/06/2024 Patient: Kanwal DIXON Provider: Seven Esteban MD :1985 A ge:39 Y S ex:Female Date:11/06/2024 Address:[address] [place], [place] [address] Pcp:Jorge Swanson MD Subjective: * Chief Complaints: * T ysabri InfusionMultiple sclerosis * HPI: C OVID-19 Screening: She comes in today for another infusion of Tysabri monoclonal antibody therapy for the diagnosis of chronic relapsing multiple sclerosis. She has been well since her last visit. There were no contraindications to treatment she was treated without any incidents. Questions H ave you had any new [...] have been noted. G enitourinary: Frequent urination d enies. M usculoskeletal: Muscle aches d enies. P ainful joints d enies. S ciatica d enies. W eakness d enies. S kin: Itching d enies. R dorian d enies. S kin lesion(s)?denies. N eurologic: Difficulty speaking d enies. D izziness d enies.?Headache d enies. L ow back pain d enies. P sychiatric: Depressed mood w hich is mild. * Medical History: * Surgical History: G [...] x-cigarette smoker S he was born in [place], [place]. 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 * Medications: [...] H t: 60, Wt: 114, BMI:22.26, BP: 80/47, HR: 71, Wt-k.71. * Examination: G eneral Examination: GENERAL [...] LUNGS: c lear to auscultation . BREASTS: no masses palpable bilaterally. ABDOMEN: b owel sounds normal, no ascites, [...] with all of her medications. 3 . B ipolar 1 disorder - F31.9 N otes :This disorder is in long-term remission. 4 . F ormer smoker - Z87.891 N otes :She is highly motivated not to smoke. She has a plan to prevent relapse in times of stress and illness. Plan: * Treatment: * Procedures: C hemotherapy: Start and End Time: s tart, 1:00 pm, end, 2:00 pm. Site: [facility]. Consent: v erbal consent was obtained prior to procedure.? Medications given: T ysabri 300 mg. Monitored by: HAILY Waggoner. port flush n one. route I V. * Procedure Codes: 9 6413 CHEMO, IV INFUSION, 1 [id number] NATALIZUMAB INJECTION * Preventive Medicine: Counseling: S moking/Tobacco Use Patient counseled on the dangers of tobacco use and urged to quit. 0 11/06/2024 * Follow Up: 4 Weeks (Reason: Tysabri infusion no tests) * Images: * Sign off status: Completed true * Provider: Seven Esteban MD Date: 0 11/06/2024 Generated for Printi ng/Faxing/eTransmitting on: 1 10:53 AM EDT History and Physical Notes [...] lesion s, anicteric PERIPHERAL PULSES: normal BREASTS: no masses palpable b ilaterally MUSCULOSKELETAL: extremities unremark able, no clubbing, cyanosis or edema LYMPH NODES: no enlarged lymph no james,spleen normal RECTAL EXAM: not examined PSYCH: alert, oriented ORAL CAVITY: normal, unremarkable
--- OUTSIDE RECORDS SUMMARY | 2024-12-04 09:00 | XMS_ITS ---
Author Organization Edmundo Esteban III, MD Address [address] [place] [address] Care Team Providers Care Cloth Coverer Name Role Phone PasserFelisha Primary Care Provider UnavailEdmundo Stephens III Unavailable [phone] Sylwia Joseph MD Unavailable Unavailable Dr. Edmundo [...] Additional Findings: Tobacco Non-User Ex-cigaret te smoker Encounters Encounter Location Date Provider Diagnosis Edmundo Esteban III, MD [address] [place] [address] [place] [address] 12/04/2024 Edmundo Esteban MS (multiple sclerosis) G35 Assessments Encounter Date Diagnosis (ICD Code) Assessment Notes Treatment Notes Treatment Clinical Notes 12/04/2024 MS (multiple sclerosis) (ICD-10 - G35) She was treated today with 300 mg Tysabri monoclonal antibody therapy without incident. She will return in one month. Plan Of Treatment Medication Medication Name Sig Start Date Stop Date Notes Vitamin D 1000 UNIT 1 tablet Orally Once a day Tysabri 300 MG/15ML as directed Intravenous Next Appt Details Provider Name:Edmundo Esteban , 05/13/2025 01:00:00 PM, [address] [place] [address] [place], [address], Provider Name:Edmundo Esteban , 06/10/2025 01:00:00 PM, [address] [place] [address] [place], [address], Provider Name:Edmundo Esteban , 07/08/2025 01:00:00 PM, [address] [place] [address] [address] [place], [place], [address], Provider Name:Edmundo Esteban , 08/05/2025 01:00:00 PM, [address] [place] [address] [address] [place], [place], [address], Progress Notes * Kanwal NGDOB:[birth year] (40 yo F)Acc No.[id number]:12/04/2024 Patient: Kanwal DIXON Provider: Seven Esteban MD :1985 A ge:39 Y S ex:Female Date:12/04/2024 Address:[address] [place] [id number] Pcp:Felisha Alamo Subjective: * Chief Complaints: * 1 . Tysabri Infusion. * ROS: G eneral/Constitutional: pain o nly [...] Depressed mood d enies. * Medical History: M ultiple sclerosis, Bipolar disorder, 2 para 2, Cigarette smoker, History of depression, Covid19 07/2021. * Surgical History: Frantz 1P1Ab0 2008. * Hospitalization/Major Diagno stic Procedure: Boo maldonado 02/2020. * Family History: F ather: 55 yrs, [...] x-cigarette smoker S he was born in [place], [place]. 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 * Medications: T varinderg Vitamin D 1000 UNIT Tablet 1 tablet Orally Once a day , Taking Tysabri 300 MG/15ML Concentrate as directed Intravenous , Medication List reviewed and reconciled with the patient * Allergies: N o Known Drug Allergy. Objective: * Vitals: * Examination: G eneral Examination: GENERAL APPEARANCE: p leasant, well nourished, well developed, in no acute distress, calm and relaxed. HEAD: a traumatic, normocephalic. EYES: e eliza, [...] 1. M S (multiple sclerosis) - G35 N otes :She was treated today with 300 mg Tysabri monoclonal antibody therapy without incident. She will return in one month. Plan: * Treatment: * Images: * The named appointment provid er may or may not be the originator of this progress note, and it is not deemed complete until electronically signed by the appointment provider. Sign off status: Pending * Provider: Seven Esteban MD Date: 0 12/04/2024 Generated for Sanam leary/Maxx/Martine on: 10:52 AM EDT History and Physical Notes * Examination Category Sub-Category Detail Notes General Examination GENERAL APPEARANCE: pleasant , well nourished, well developed, in no acute distress, calm and relaxed HEAD: atraumatic, normocep halic EYES: eomi, perrla, [...]
--- OUTSIDE RECORDS SUMMARY | 2024-12-13 09:00 | XMS_ITS ---
Author Organization Edmundo Esteban III, MD Address [address] [facility] [place] [address] Care Team Providers Care Core Drilling Supervisor Name Role Phone PasserFelisha Primary Care Provider UnavailEdmundo Stephens III Unavailable [phone] Sylwia Joseph MD Unavailable Unavailable Dr. Edmundo [...] te smoker Vital Signs Blood pressure systolic 105 mm Hg 12/14/19 25 Blood pressure diastolic 79 mm Hg 025 Heart Rate 79 /min 12/13/2024 Height 60 in 12/13/2024 Weight 116 lbs 12/13/2024 BMI 22.65 kg/m2 12/13/2024 Encounters Encounter Location Date Provider Diagnosis Edmundo Esteban III, MD [address] [place] [address] [place] [address] 12/13/2024 Edmundo Esteban MS (multiple sclerosis) G35 ; History of depression Z86.59 and Former smoker Z87.891 Assessments Encounter Date Diagnosis (ICD Code) Assessment Notes Treatment Notes Treatment Clinical Notes 12/13/2024 MS (multiple sclerosis) (ICD-10 - G35) She was treated today with 300 mg Tysabri monoclonal antibody therapy without incident. She will return in one month. 12/13/2024 History of depression (ICD-10 - Z86.59) She says her depression is well-controlled and that she is compliant with all of her medications. 12/13/2024 Former smoker (ICD-10 - Z87.891) She is highly motivated not to smoke. She has a plan to prevent relapse in times of stress and illness. Plan Of Treatment Medication Medication Name Sig Start Date Stop Date Notes Tysabri 300 MG/15ML as directed Intravenous Vitamin D 1000 UNIT 1 tablet Orally Once a day Next Appt Details Follow Up: 4 Weeks, Reason: ov Provider Name:Edmundo Esteban , 05/13/2025 01:00:00 PM, [address] [place] [address] [address], [place], [address], Provider Name:Edmundo Esteban , 06/10/2025 01:00:00 PM, [address] [place] [address] [place], [address], Provider Name:Edmundo Esteban , 07/08/2025 01:00:00 PM, [facility] [place], [address], Provider Name:Edmundo Esteban , 08/05/2025 01:00:00 PM, [address] [place] [address] [place], [address], Procedure Notes * Category Sub-Category Detail Notes Chemotherapy Start and End Time: start, 1:00 pm, end, 2:00 pm Site: left hand Consent: verbal consent was o btained prior to procedure Medications given: Tysabri 300 mg Monitored by: HAILY Copeland port flush none route IV Progress Notes * Kanwal NGDOB:[birth year] (39 yo F)Acc No.[id number]:12/13/2024 Patient: Kanwal DIXON Provider: Seven Esteban MD :1985 A ge:39 Y S ex:Female Date:12/13/2024 Address:[address] [place] [address] Pcp:Jorge Swanson MD Subjective: * Chief Complaints: * T ysabri InfusionMultiple sclerosis * HPI: C OVID-19 Screening: She returns to the office once a month for an IV infusion of Tysabri. This is a monoclonal antibody for chronic relapsing multiple sclerosis. She was treated today without incident. Questions [...] x-cigarette smoker S he was born in [place], [place]. 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 * Medications: [...] Objective: * Vitals: H t: 60, Wt: 116, BMI:22.65, BP: 105/79, HR: 79, Wt-k.62. * Examination: G eneral Examination: GENERAL APPEARANCE: [...] tart, 1:00 pm, end, 2:00 pm. Site: [facility]. Consent: v erbal consent was obtained prior to procedure.? Medications given: T ysabri 300 mg. Monitored by: HAILY Waggoner. port flush n one. route I V. * Procedure Codes: 9 6413 CHEMO, IV INFUSION, 1 [id number] NATALIZUMAB INJECTION * Follow Up: 4 Weeks (Reason: ov) * Images: * Sign off status: Completed true * Provider: Seven Esteban MD Date: 0 12/13/2024 Generated for Sui gibran/Maxx/eTransmitting on: 1 10:52 AM EDT History and Physical Notes [...]
--- OUTSIDE RECORDS SUMMARY | 2025-01-01 13:30 | XMS_ITS ---
Author Organization Edmundo Esteban III, MD Address [address] [place] [address] [place] [address] Care Team Providers Care Banquet Manager Name Role Phone Passer, Felisha Primary Care Provider UnavailEdmundo Stephens III Unavailable [phone] Sylwia Joseph MD Unavailable Unavailable Dr. Edmundo Esteban III Unavailable [phone] REASON FOR VISIT Tysabri Infusion Social History Sex Assigned At : Social History Observation Description Sex Assigned At Female Encounters Encounter Location Date Provider Diagnosis Edmundo Esteban III, MD [address] [place] [address] [place] [address] 01/01/2025 Edmundo Esteban Plan Of Treatment Next Appt Details Provider Name:Edmundo Esteban , 05/13/2025 01:00:00 PM, [address] [place] [address] [place], [address], Provider Name:Edmundo Esteban , 06/10/2025 01:00:00 PM, [address] [place] [address] [place], [address], Provider Name:Edmundo Esteban , 07/08/2025 01:00:00 PM, [address] [place] [address] [address], [place], [address], Provider Name:Edmundo Esteban , 08/05/2025 01:00:00 PM, [address] [place] [address] [address], [place], [address], Progress Notes * Kanwal NGDOB:[birth year] (40 yo F)Acc No.[id number]:01/01/2025 Patient: Kanwal DIXON Provider: Seven Esteban MD :1985 A ge:39 Y S ex:Female Date:01/01/2025 Address:[address] [place], [place] [phone] Pcp:Felisha [place] Subjective: * Chief Complaints: * 1 . Tysabri Infusion. * Medical History: Objective: * Vitals: Assessment: Plan: * Treatment: * Images: * The named appointment provid er may or may not be the originator of this progress note, and it is not deemed complete until electronically signed by the appointment provider. Sign off status: Pending * Provider: Seven Esteban MD Date: 0 01/01/2025 Generated for Sanam leary/Maxx/Indrasmitting on: 10:53 AM EDT
--- OUTSIDE RECORDS SUMMARY | 2025-01-17 09:00 | XMS_ITS ---
Author Organization Edmundo Esteban III, MD Address [address] [place] [address] Care Team Providers Care Railway Engineer Name Role Phone PasserFelisha Primary Care Provider UnavailEdmundo Stephens III Unavailable [phone] Sylwia Joseph MD Unavailable Unavailable Dr. Edmundo Esteban III Unavailable [phone] Allergies Allergen (clinical drug ingredient) Drug/Non Drug [...] W/U Status Risk Notes Problem Multiple sclerosis (94444180) Multiple sclerosis (G35) Active confirmed Vital Signs Blood pressure systolic 84 mm Hg 01/18/20 25 Blood pressure diastolic 65 mm Hg 025 Heart Rate 74 /min 01/17/2025 Height 60 in 01/17/2025 Weight 115 lbs 01/17/2025 BMI 22.46 kg/m2 01/17/2025 Encounters Encounter Location Date Provider Diagnosis Edmundo Esteban III, MD [address] [place] [address] [place] [address] 01/17/2025 Edmundo Esteban MS (multiple sclerosis) G35 [...] Provider Name:Edmundo Esteban , 05/13/2025 01:00:00 PM, [address] [place] [address] [place], [address], Provider Name:Edmundo Esteban , 06/10/2025 01:00:00 PM, [address] [place] [address] [place], [address], Provider Name:Edmundo Esteban , 07/08/2025 01:00:00 PM, [address] [place] [address] [address], [place], [address], Provider Name:Edmundo Esteban , 08/05/2025 01:00:00 PM, [address] [place] [address] [address], [facility] [place], [address], Procedure Notes * Category Sub-Category Detail Notes Chemotherapy Start and End Time: start, 1:00 pm, end, 2:00 pm Site: right hand Consent: verbal consent was o btained prior to procedure Medications given: Tysabri 300 mg Monitored by: Lennox Olson ASMRonen port flush none route IV Progress Notes * Kanwal NGDOB:[birth year] (39 yo F)Acc No.[id number]:01/17/2025 Patient: Kanwal DIXON Provider: Seven Esteban MD :1985 A ge:39 Y S ex:Female Date:01/17/2025 Address:[address] [place] [phone] Pcp:Jorge Swanson MD Subjective: * Chief Complaints: [...] enies. * Medical History: * Surgical History: Frantz 1P1Ab0 2008 * Hospitalization/Major Diagno stic Procedure: [...] x-cigarette smoker S he was born in [place], [place]. 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 * Medications: [...] tart, 1:00 pm, end, 2:00 pm. Site: [facility]. Consent: v erbal consent was obtained prior to procedure.? Medications given: T ysabri 300 mg. Monitored by: HAILY Waggoner. port flush n one. route I V. * Procedure Codes: 9 6413 CHEMO, IV INFUSION, 1 [id number] NATALIZUMAB INJECTION * Preventive Medicine: Counseling: S moking/Tobacco Use Patient counseled on the dangers of tobacco use and urged to quit. 0 01/17/2025 * Follow Up: 4 Weeks (Reason: Tysabri no tests) * Images: * Sign off status: Completed true * Provider: Seven Esteban MD Date: 0 01/17/2025 Generated for Sanam leary/Maxx/eTransmitting on: 1 10:52 AM EDT History and [...]
--- OUTSIDE RECORDS SUMMARY | 2025-02-14 13:00 | XMS_ITS ---
Author Organization Edmundo Esteban III, MD Address [address] [place] [address] [place] [address] Care Team Providers Care Jack Frame Tender Name Role Phone Passer, Felisha Primary Care Provider UnavailEdmundo Stephens III Unavailable [phone] Sylwia Joseph MD Unavailable Unavailable Dr. Edmundo Esteban III Unavailable [phone] REASON FOR VISIT Tysabri Infusion Social History Sex Assigned At : Social History Observation Description Sex Assigned At Female Encounters Encounter Location Date Provider Diagnosis Edmundo Esteban III, MD [address] [place] [address] [place] [address] 02/14/2025 Edmundo Esteban Plan Of Treatment Next Appt Details Provider Name:Edmundo Esteban , 05/13/2025 01:00:00 PM, [address] [place] [address] [place], [address], Provider Name:Edmundo Esteban , 06/10/2025 01:00:00 PM, [address] [place] [address] [place], [address], Provider Name:Edmundo Esteban , 07/08/2025 01:00:00 PM, [address] [place] [address] [address], [place], [address], Provider Name:Edmundo Esteban , 08/05/2025 01:00:00 PM, [address] [place] [address] [address], [place], [address], Progress Notes * Kanwal NGDOB:[birth year] (40 yo F)Acc No.[id number]:02/14/2025 Patient: Kanwal DIXON Provider: Seven Esteban MD :1985 A ge:39 Y S ex:Female Date:02/14/2025 Address:[address] [place], [place] [phone] Pcp:Felisha Alamo Subjective: * Chief Complaints: * [...] 0 02/14/2025 Generated for Sanam leary/Maxx/Zohaibitting on: 10:53 AM EDT
--- OUTSIDE RECORDS SUMMARY | 2025-02-18 09:00 | XMS_ITS ---
Author Organization Edmundo Esteban III, MD Address [address] [address] Care Team Providers Care Music Artist Name Role Phone PasserFelisha Primary Care Provider UnavailEdmundo Stephens III Unavailable [phone] Sylwia Joseph MD Unavailable Unavailable Dr. Edmundo [...] Provider Diagnosis Edmundo Esteban III, MD [address] [place] [address] [place] [address] 02/18/2025 Edmundo Esteban MS (multiple sclerosis) G35 [...] Provider Name:Edmundo Esteban , 05/13/2025 01:00:00 PM, [address] [place] [address] [place], [address], Provider Name:Edmundo Esteban , 06/10/2025 01:00:00 PM, [address] [place] [address] [place], [address], Provider Name:Edmundo Esteban , 07/08/2025 01:00:00 PM, [address] [place] [address] [place], [address], Provider Name:Edmundo Esteban , 08/05/2025 01:00:00 PM, [address] [place] [address] [address], [place], [address], Procedure Notes * Category Sub-Category Detail Notes Chemotherapy Start and End Time: start, 1:00 pm, end, 2:00 pm Site: left hand Consent: verbal consent was o btained prior to procedure Medications given: Tysabri 300 mg Monitored by: Lennox Olson ASMRonen route IV Progress Notes * Kanwal NGDOB:[birth year] (39 yo F)Acc No.[id number]:02/18/2025 Patient: Kanwal DIXON Provider: Sevne Esteban MD :1985 A ge:39 Y S ex:Female Date:02/18/2025 Address:[address] [place], [place] [phone] Pcp:Felisha Alamo Subjective: * Chief Complaints: * [...] 2008 * Hospitalization/Major Diagno stic Procedure: C hiljaylyn 02/2020 * Family History: F ather: 55 [...] x-cigarette smoker S he was born in [place], [place]. 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 * Medications: [...] tart, 1:00 pm, end, 2:00 pm. Site: [facility]. Consent: v erbal consent was obtained prior to procedure.? Medications given: T ysabri 300 mg. Monitored by: HAILY Waggoner. route I V. * Procedure Codes: 9 6413 CHEMO, IV INFUSION, 1 [id number] NATALIZUMAB INJECTION * Preventive Medicine: Counseling: S moking/Tobacco Use Patient counseled on the dangers of tobacco use and urged to quit. 0 02/19/2025 * Follow Up: 4 Weeks (Reason: Tysabri no tests) * Images: * Sign off status: Completed true * Provider: Seven Esteban MD Date: 0 02/18/2025 Generated for Printi ng/Fakacig/eTransmitting on: 1 10:52 AM EDT History and [...]
--- OUTSIDE RECORDS SUMMARY | 2025-03-18 09:00 | XMS_ITS ---
Author Organization Edmundo Esteban III, MD Address [address] [place] [address] Care Team Providers Care Stage Manager Name Role Phone PasserFelisha Primary Care Provider UnavailEdmundo Stephens III Unavailable [phone] Sylwia Joseph MD Unavailable Unavailable Dr. Edmundo Esteban III Unavailable [phone] Allergies Allergen (clinical drug ingredient) Drug/Non Drug [...] Provider Diagnosis Edmundo Esteban III, MD [address] [place] [address] [place] [address] 03/18/2025 Edmundo Esteban MS (multiple sclerosis) G35 [...] Name:Edmundo Esteban , 05/13/2025 01:00:00 PM, [address] [place] [address] [place], [address], Provider Name:Edmundo Esteban , 06/10/2025 01:00:00 PM, [address] [place] [address] [place], [address], Provider Name:Edmundo Esteban , 07/08/2025 01:00:00 PM, [address] [place] [address] [place], [address], Provider Name:Edmundo Esteban , 08/05/2025 01:00:00 PM, [address] [place] [address] [address], [place], [address], Procedure Notes * Category Sub-Category Detail Notes Chemotherapy Start and End Time: start, 1:00 pm, end, 2:00 pm Site: right hand Consent: verbal consent was o btained prior to procedure Medications given: Tysabri 300 mg Monitored by: Lennox Olson, ASMA port flush none route IV Progress Notes * Kanwal NGDOB:[birth year] (39 yo F)Acc No.[id number]:03/18/2025 Patient: Kanwal DIXON Provider: Seven Esteban MD :1985 A ge:39 Y S ex:Female Date:03/18/2025 Address:[address] [place], [place] [address] Pcp:Felisha Alamo Subjective: * Chief Complaints: * [...] x-cigarette smoker S he was born in [place], [place]. 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 * [...] tart, 1:00 pm, end, 2:00 pm. Site: [facility]. Consent: v erbal consent was obtained prior to procedure.? Medications given: T ysabri 300 mg. Monitored by: HAILY Waggoner. port flush n one. route I V. * Procedure Codes: 9 6413 CHEMO, IV INFUSION, 1 [id number] NATALIZUMAB INJECTION * Preventive Medicine: Counseling: S moking/Tobacco Use Patient counseled on the dangers of tobacco use and urged to quit. 0 03/18/2025 * Follow Up: 4 Weeks (Reason: ov) * Images: * Sign off status: Completed true * Provider: Seven Esteban MD Date: 0 03/18/2025 Generated for Sui ng/Fakacig/eTransmitting on: 1 10:51 AM EDT History and Physical Notes * [...]
--- OUTSIDE RECORDS SUMMARY | 2025-04-15 09:00 | XMS_ITS ---
Author Organization Edmundo Esteban III, MD Address [address] [place] [address] Care Team Providers Care Delicate Fabrics Presser Name Role Phone PasserFelisha Primary Care Provider UnavailEdmundo Stephens III Unavailable [phone] Sylwia Joseph MD Unavailable Unavailable Dr. Edmundo Esteban III Unavailable Allergies Allergen (clinical drug ingredient) Drug/Non Drug Allergy documented on EMR Reaction Allergy Type Onset Date Status No Known Drug Allergy Unknown Drug Allergy Active REASON FOR VISIT Tysabri Infusion, multiple sclerosis Medications Medication SIG (Take, Route, Fr [...] te smoker Vital Signs Blood pressure systolic 136 mm Hg 10/07/20 25 Blood pressure diastolic 84 mm Hg 025 Heart Rate 79 /min 04/15/2025 Height 60 in 04/15/2025 Weight 119 lbs 04/15/2025 BMI 23.24 kg/m2 04/15/2025 Encounters Encounter Location Date Provider Diagnosis Edmundo Esteban III, MD [address] [place] [address] [place] [address] 04/15/2025 Edmundo Esteban MS (multiple sclerosis) G35 ; History of depression Z86.59 and Former smoker Z87.891 Assessments Encounter Date Diagnosis (ICD Code) Assessment Notes Treatment Notes Treatment Clinical Notes 04/15/2025 MS (multiple sclerosis) (ICD-10 - G35) She was treated today with 300 mg Tysabri monoclonal antibody therapy without incident. She will return in one month. 04/15/2025 History of depression (ICD-10 - Z86.59) She says her depression is well-controlled and that she is compliant with all of her medications. 04/15/2025 Former smoker (ICD-10 - Z87.891) She is highly motivated not to smoke. She has a plan to prevent relapse in times of stress and illness. Plan Of Treatment Medication Medication Name Sig Start Date Stop Date Notes Vitamin D 1000 UNIT 1 tablet Orally Once a day Tysabri 300 MG/15ML as directed Intravenous Next Appt Details Follow Up: 4 Weeks,Tysabri i nfusion, Reason: Tysabri infusion no tests Provider Name:Edmundo Esteban , 05/13/2025 01:00:00 PM, [address] [place] [address] [place], [address], Provider Name:Edmundo Esteban , 06/10/2025 01:00:00 PM, [address] [place] [address] [place], [address], Provider Name:Edmundo Esteban , 07/08/2025 01:00:00 PM, [address] [place] [address] [place], [address], Provider Name:Edmundo Esteban , 08/05/2025 01:00:00 PM, [address] [place] [address] [place], [address], Procedure Notes * Category Sub-Category Detail Notes Chemotherapy Start and End Time: start, 1:00 pm, end, 2:00 pm Site: right hand Consent: verbal consent was o btained prior to procedure Medications given: Tysabri 300 mg Monitored by: Lennox Olson ASMRonen route IV Progress Notes * Kanwal NGDOB:[birth year] (39 yo F)Acc No.[id number]:04/15/2025 Patient: Kanwal DIXON Provider: Seven Esteban MD :1985 A ge:39 Y S ex:Female Date:04/15/2025 Address:[address] [place] [phone] Pcp:Felisha Alamo Subjective: * Chief Complaints: * T ysabri InfusionMultiple sclerosis * HPI: v : She returnns for another dose of Tysabri monoclonal antibody therapy for chronic relapsing multiple sclerosis. She saw her neurologist this morning and had an antibody JCB level drawn. The result is pending. She was treated today without incident. * ROS: G eneral/Constitutional: pain o nly [...] x-cigarette smoker S he was born in [place], [place]. 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 * Medications: [...] Objective: * Vitals: H t: 60, Wt: 119, BMI:23.24, BP: 136/84, HR: 79, Wt-k.98. * Examination: G eneral Examination: GENERAL APPEARANCE: [...] pm, end, 2:00 pm. Site: [facility]. Consent: v erbal consent was obtained prior to procedure.? Medications given: T ysabri 300 mg. Monitored by: HAILY Waggoner. route I V. * Procedure Codes: 9 6413 CHEMO, IV INFUSION, 1 [id number] NATALIZUMAB INJECTION * Preventive Medicine: Counseling: S moking/Tobacco Use Patient counseled on the dangers of tobacco use and urged to quit. 1 * Follow Up: 4 Weeks,Tysabri infusion (Reason: Tysabri infusion no tests) * Images: * Sign off status: Completed true * Provider: Seven Esteban MD Date: Generated for Sanam leary/Maxx/eTransmitting on: 10:52 AM EDT History and Physical [...]
--- NOTE | ~2025-05-05 | MM_ITS ---
EXAMINATION: MM SCREENING DIGITAL BREAST TOMOSYNTHESIS, BILATERAL CLINICAL INFORMATION: Screening. Asymptomatic. COMPARISON: Mammography: Baseline. TECHNIQUE: Digital breast mammography with tomosynthesis is performed in both the craniocaudal and mediolateral oblique views along with computer-aided detection (CAD). FINDINGS: The breasts are heterogeneously dense, which may obscure small masses. There are no significant masses, abnormal calcifications, or other abnormalities. MM/MM tomosynthesis screening BI IMPRESSION: No mammographic evidence of malignancy. ASSESSMENT: BI-RADS Category 1: Negative RECOMMENDATION: Routine annual mammography screening. 1 year F/U This examination should not preclude the clinical evaluation of a suspicious palpable abnormality. This patient's information was entered into a reminder system with a target due date for their next mammogram. Electronically signed by: Cecilia Holm DO 05/06/2025 02:40 PM EDT
--- OUTSIDE RECORDS SUMMARY | 2025-05-05 10:52 | XMS_ITS | Patient Health Record ---
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 Edmundo Esteban III Unavailable [phone] Allergies Allergen (clinical drug ingredient) Drug/Non [...] Problem Status W/U Status Risk Notes Problem 3043981 Former smoker (Z87.891) Active confirmed She is highly motivated not to smoke. She has a plan to prevent relapse in times of stress and illness. Problem Multiple sclerosis (94283245) Multiple sclerosis (G35) Active confirmed Problem 10880584 MS (multiple sclerosis) (G35) Active confirmed She was treated today with 300 mg Tysabri monoclonal antibody therapy without incident. She will return in one month. Problem 468449588 History of depression (Z86.59) Active confirmed She says her depression is well-controll ed and that she is compliant with all of her medications. Problem 822248249 Bipolar 1 disorder (F31.9) Active confirmed This disorder is in long-term remission. Vital Signs Heart Rate 79 /min 04/15/2025 Blood pressure diastolic 84 mm Hg 04/15/2025 Height 60 in 04/15/2025 Blood pressure systolic 136 mm Hg 04/15/2025 Weight 119 lbs 04/15/2025 BMI 23.24 kg/m2 04/15/2025 Encounters Encounter Location Date Provider Diagnosis Edmundo Esteban III, MD [address] [place] [address] [place] [address] 05/10/2024 Edmundo Esteban MS (multiple sclerosis) G35 ; Former smoker Z87.891 ; Bipolar 1 disorder F31.9 and History of depression Z86.59 Edmundo Esteban III, MD [address] [place] [address] [place] [address] 06/11/2024 Edmundo Esteban MS (multiple sclerosis) G35 ; Bipolar 1 disorder F31.9 ; History of depression Z86.59 and Former smoker Z87.891 Edmundo Esteban III, MD [address] [place] [address] [place] [address] 07/12/2024 Edmundo Esteban MS (multiple sclerosis) G35 ; Bipolar 1 disorder F31.9 ; History of depression Z86.59 and Former smoker Z87.891 Edmundo Esteban III, MD [address] [place] [address] [place] [address] 08/13/2024 Edmundo Esteban MS (multiple sclerosis) G35 ; Bipolar 1 disorder F31.9 ; History of depression Z86.59 and Former smoker Z87.891 Edmundo Esteban III, MD [address] [place] [address] [place] [address] 10/09/2024 Edmundo Esteban MS (multiple sclerosis) G35 ; History of depression Z86.59 and Former smoker Z87.891 Edmundo Esteban III, MD [address] [place] [address] [place] [address] 11/06/2024 Edmundo Esteban MS (multiple sclerosis) G35 ; History of depression Z86.59 ; Bipolar 1 disorder F31.9 and Former smoker Z87.891 Edmundo Esteban III, MD [address] [place] [address] [place] [address] 09/11/2024 Edmundo Carlito MS (multiple sclerosis) G35 ; Bipolar 1 disorder F31.9 ; History of depression Z86.59 and Former smoker Z87.891 Edmundo Esteban III, MD [address] [place] [address] [place] [address] 12/13/2024 Edmundo Esteban MS (multiple sclerosis) G35 ; History of depression Z86.59 and Former smoker Z87.891 Edmundo Esteban III, MD [address] [place] [address] [place] [address] 01/17/2025 Edmundo Carlito MS (multiple sclerosis) G35 ; Bipolar 1 disorder F31.9 ; History of depression Z86.59 and Former smoker Z87.891 Edmundo Esteban III, MD [address] [place] [address] [place] [address] 02/18/2025 Edmundo Esteban MS (multiple sclerosis) G35 ; History of depression Z86.59 ; Bipolar 1 disorder F31.9 and Former smoker Z87.891 Edmundo Esteban III, MD [address] [place] [address] [place] [address] 03/18/2025 Edmundo Esteban MS (multiple sclerosis) G35 ; Former smoker Z87.891 ; Bipolar 1 disorder F31.9 and History of depression Z86.59 Edmundo Estbean III, MD [address] [place] [address] [place] [address] 04/15/2025 Edmundo Esteban MS (multiple sclerosis) G35 [...] Provider Name:Edmundo Esteban , 05/13/2025 01:00:00 PM, [address] [place] [address] [place], [address], Provider Name:Edmundo Esteban , 06/10/2025 01:00:00 PM, [address] [place] [address] [place], [address], Provider Name:Edmundo Esteban , 07/08/2025 01:00:00 PM, [address] [place] [address] [place], [address], Provider Name:Edmundo Esteban , 08/05/2025 01:00:00 PM, [address] [place] [address] [place], [address], Insurance Providers Payer Name Payer Address Payer Phone Subscriber Number Group Number Insured Name Patient Relationship to Insured Coverage Start Date Coverage End Date MEDICARE NGS [address] [place] [address] [id number] Kanwal Sanches Self - patient is the insured MEDICAID [place] [employer] [address] [place] [id number] [phone] [id number] Kanwal Sanches Self - patient is the insured Medical (General) History Medical History History ICD Code multiple sclerosis bipolar disorder 2 para 2 cigarette smoker history of depression covid19 07/2021 Surgical History Surgery Date(Month/Year) [id number] 2008 Hospitalization History Reason Date(Month/Year) Child 02/2020
== END 2025-05-05 09:37 | disposition home or self-care (01) ==
LOC: HO.MAMMO 09:36
PROVIDERS: PCP Physician Assistant Medical; Visit Provider Obstetrics & Gynecology
DX: Z12.31 Encounter for screening mammogram for malignant neoplasm of breast (principal)
CPT/HCPCS: 77063; 77067

== ENCOUNTER → 2025-05-05 09:45 | Outpatient (BNV) | payer MEDICARE, MEDICAID, SELFPAY | PROVIDERS: PCP Physician Assistant Medical; Visit Provider Internal Medicine | DX: Z12.31 Encounter for screening mammogram for malignant neoplasm of breast (principal) | CPT/HCPCS: 77063; 77067 ==